=== PATIENT | female | born 1970 | race Caucasian/White ===

== ENCOUNTER 2019-06-03 21:48 | Emergency (ER) | payer BC ==
--- NOTE | 2019-06-03 22:59 | EDM.PDOC ---
ED HPI GENERAL MEDICAL PROBLEM - General Chief Complaint: Chest Pain Stated Complaint: LEFT ARM PAIN SHOULDER/NECK TIGHTNESS Time Seen by Provider: 06/03/19 22:08 Source of Information: Reports: Patient History Limitations: Reports: No Limitations - History of Present Illness INITIAL COMMENTS - FREE TEXT/NARRATIVE: Is a 48-year-old female. She has been having pain in her left neck and shoulder and down her arm and tingling in her ring and little finger on and off for several weeks. She was seen in the walk-in clinic several times and yesterday she was diagnosed with pneumonia and placed on a Z-Feliciano and some prednisone. She says she has a minimal cough it is nonproductive and she has not been having a fever. They also checked a flu and she was negative for influenza a and B. She describes the pain as a sharp pain that seems to be random but it never really goes away. She did go to a chiropractor and when you after he worked on her she felt a lot better but it did not last. Most of this pain and sharp pain seemed to resolve with a chiropractor but again it did not last. Due to this continued pain in her neck and left shoulder and left arm she comes to the ER for evaluation. She denies any nausea vomiting, fever or chills, cough or congestion. Right Chest Pain Score (Numeric/FACES): 6 - Related Data Allergies Allergy/AdvReac Type Severity Reaction Status Date / Time No Known Allergies Allergy Verified 06/03/19 22:08 Home Meds: Home Meds Azithromycin [Zithromax] 06/03/19 [History] Cetirizine [ZyrTEC] 06/03/19 [History] Dicyclomine [Bentyl] 06/03/19 [History] Ezetimibe [Zetia] 06/03/19 [History] Iron 06/03/19 [History] Levothyroxine [Synthroid] 100 mcg PO ACBREAKFAST 06/03/19 [History] Montelukast [Singulair] 10 mg PO DAILY 06/03/19 [History] atorvaSTATin [Lipitor] 06/03/19 [History] methylPREDNISolone [Medrol Dose Pack] 06/03/19 [History] Past Medical History Cardiovascular History: Reports: High Cholesterol Gastrointestinal History: Reports: Gastritis, Irritable Bowel Syndrome Endocrine/Metabolic History: Reports: Hyperthyroidism - Past Surgical History GI Surgical History: Reports: Cholecystectomy, Vonda Fundoplication Social & Family History - Tobacco Use Smoking Status *Q: Never Smoker ED ROS GENERAL - Review of Systems Review Of Systems: See Below Constitutional: Denies: Fever, Chills HEENT: Denies: Ear Pain, Sinus Problem, Throat Pain, Throat Swelling Respiratory: Reports: Cough. Denies: Shortness of Breath, Wheezing Cardiovascular: Reports: Chest Pain. Denies: Dyspnea on Exertion, Edema Endocrine: Reports: No Symptoms GI/Abdominal: Denies: Abdominal Pain, Diarrhea, Nausea, Vomiting : Reports: No Symptoms Musculoskeletal: Reports: Neck Pain, Shoulder Pain, Arm Pain Skin: Reports: No Symptoms Neurological: Reports: No Symptoms Psychiatric: Reports: No Symptoms Hematologic/Lymphatic: Reports: No Symptoms ED EXAM, GENERAL - Physical Exam Exam: See Below Exam Limited By: No Limitations General Appearance: Alert, WD/WN, No Apparent Distress Eye Exam: Bilateral Eye: Normal Inspection Ears: Normal External Exam, Normal Canal, Normal TMs Nose: Normal Inspection Throat/Mouth: Normal Inspection, Normal Lips, Normal Voice, No Airway Compromise Head: Normocephalic Neck: Supple Respiratory/Chest: No Respiratory Distress, Lungs Clear, Normal Breath Sounds. No: Crackles, Rales, Rhonchi, Wheezing Cardiovascular: Regular Rate, Rhythm, No Murmur, Tachycardia GI/Abdominal: Soft, Non-Tender Back Exam: Normal Inspection, Full Range of Motion Extremities: Other (Outpatient of the trapezius muscle on the left is very tender and tight, palpation along the roots of the cervical spine is also very tender, I am not able to reproduce any sharp pain or tingling in her fingers but it seems to be related to the muscle tightness and the neck pain, she also has some soreness in the pectoralis muscles in the left anterior chest as well and around the clavicle, she has full range of motion of that shoulder elbow wrist and fingers. Neurovascular is grossly intact in all 5 digits.) Neurological: Alert, Oriented Psychiatric: Normal Affect, Normal Mood Skin Exam: Warm, Dry EKG INTERPRETATION EKG Date: 06/03/19 Time: 22:25 EKG Interpretation Comments: EKG shows a sinus rhythm with no acute ST or T wave changes and no ischemia is noted. Course - Vital Signs Last Recorded V/S: Last Vital Signs Temp 98.4 F 06/03/19 22:03 Pulse 101 H 06/03/19 22:03 Resp 16 06/03/19 22:03 BP 148/89 H 06/03/19 22:03 Pulse Ox 96 06/03/19 22:03 - Orders/Labs/Meds Orders: Active Orders 24 hr Category Date Time Status EKG Documentation Completion [RC] ASDIRECTED Care 06/03/19 22:19 Active CXR [Chest 1V Frontal] [CR] Stat Exams 06/03/19 22:33 Taken EKG 12 Lead [EK] Stat Ther 06/03/19 22:18 Ordered Labs: Laboratory Tests 06/03/19 06/03/19 06/03/19 Range/Units 22:45 22:45 22:45 WBC 14.06 H (3.98-10.04) K/mm3 RBC 4.99 (3.98-5.22) M/mm3 Hgb 14.4 (11.2-15.7) gm/dl Hct 43.8 (34.1-44.9) % MCV 87.8 (79.4-94.8) fl MCH 28.9 (25.6-32.2) pg MCHC 32.9 (32.2-35.5) g/dl RDW Std Deviation 40.5 (36.4-46.3) fL Plt Count 371 H (182-369) K/mm3 MPV 9.2 L (9.4-12.3) fl Neut % (Auto) 83.8 H (34.0-71.1) % Lymph % (Auto) 9.4 L (19.3-51.7) % Hart % (Auto) 6.3 (4.7-12.5) % Eos % (Auto) 0.1 L (0.7-5.8) Baso % (Auto) 0.1 (0.1-1.2) % Neut # (Auto) 11.80 H (1.56-6.13) K/mm3 Lymph # (Auto) 1.32 (1.18-3.74) K/mm3 Hart # (Auto) 0.88 H (0.24-0.36) K/mm3 Eos # (Auto) 0.01 L (0.04-0.36) K/mm3 Baso # (Auto) 0.01 (0.01-0.08) K/mm3 Manual Slide Review Abnormal smear Sodium 139 (136-145) mEq/L Potassium 4.6 (3.5-5.1) mEq/L Chloride 103 (98-107) mEq/L Carbon Dioxide 28 (21-32) mEq/L Anion Gap 12.6 (5-15) BUN 12 (7-18) mg/dL Creatinine 0.8 (0.55-1.02) mg/dL Est Cr Clr Drug Dosing 70.37 mL/min Estimated GFR (MDRD) > 60 (>60) mL/min BUN/Creatinine Ratio 15.0 (14-18) Glucose 138 H (74-106) mg/dL Lactic Acid 1.6 (0.4-2.0) mmol/L Calcium 9.5 (8.5-10.1) mg/dL Total Bilirubin 0.3 (0.2-1.0) mg/dL AST 24 (15-37) U/L ALT 48 (14-59) U/L Alkaline Phosphatase 126 H (46-116) U/L Troponin I < 0.017 (0.00-0.056) ng/mL Total Protein 8.8 H (6.4-8.2) g/dl Albumin 4.0 (3.4-5.0) g/dl Globulin 4.8 gm/dL Albumin/Globulin Ratio 0.8 L (1-2) - Radiology Interpretation Free Text/Narrative:: Chest x-ray does not show the best expansion of the lung steel, there is a little fuzziness in the left lower lung area but no discrete infiltrate noted. - Re-Assessments/Exams Free Text/Narrative Re-Assessment/Exam: 06/04/19 00:14 I spoke to the patient regarding the test results and troponin and EKG all of them essentially normal. I believe that her pain is related to the muscle tightness and possible some cervical radiculopathy. I encouraged her to see her doctor and have this evaluated. In the meantime she is to use the muscle relaxers and some Aleve to help with the pain. Departure - Departure Time of Disposition: 00:14 Disposition: Home, Self-Care 01 Condition: Good Clinical Impression: Cervical radiculopathy at C7, Cervical radiculopathy at C8, Muscle spasm Acute cervical sprain Qualifiers: Encounter type: initial encounter Qualified Code(s): S13.9XXA - Sprain of joints and ligaments of unspecified parts of neck, initial encounter Instructions: Cervical Radiculopathy Referrals: Lily Sosa MD [Primary Care Provider] - Forms: ED Department Discharge Additional Instructions: Continue with your muscle relaxers for the muscle tightness, take the Naprosyn or naproxen as needed for the pain, use ice or heat whatever feels better for the pain, follow-up with your family doctor for evaluation of this pain and possible MRI of the cervical spine, return to the ER as needed Sepsis Event Note - Evaluation Sepsis Screening Result: No Definite Risk - Focused Exam Vital Signs: Vital Signs Temp Pulse Resp BP Pulse Ox 06/03/19 22:03 98.4 F 101 H 16 148/89 H 96 Date Exam was Performed: 06/04/19 Time Exam was Performed: 00:13 - My Orders Last 24 Hours: My Active Orders 06/03/19 22:18 EKG 12 Lead [EK] Stat 06/03/19 22:19 EKG Documentation Completion [RC] ASDIRECTED 06/03/19 22:33 CXR [Chest 1V Frontal] [CR] Stat - Assessment/Plan Last 24 Hours: My Active Orders 06/03/19 22:18 EKG 12 Lead [EK] Stat 06/03/19 22:19 EKG Documentation Completion [RC] ASDIRECTED 06/03/19 22:33 CXR [Chest 1V Frontal] [CR] Stat
--- NOTE | 2019-06-04 08:00 | CR ---
Chest: Portable view of the chest was obtained. Comparison: No previous chest x-ray. Heart size is mildly generous but accentuated from portable technique. Upper mediastinum is normal. Lungs are clear with no acute parenchymal change. Bony structures are grossly intact. Minimal thoracic and lumbar scoliosis is noted. Impression: 1. Nothing acute is appreciated on portable chest x-ray. Diagnostic code #2 This report was dictated in [place] Standard Time
== END 2019-06-04 00:24 | disposition home or self-care (01) ==
LOC: JD.ED 21:48
DX: S13.4XXA Sprain of ligaments of cervical spine, initial encounter (principal); M54.12 Radiculopathy, cervical region; M62.838 Other muscle spasm; E78.00 Pure hypercholesterolemia, unspecified; Z79.899 Other long term (current) drug therapy; X58.XXXA Exposure to other specified factors, initial encounter
CPT/HCPCS: 36415; 71045; 71045-26; 80053; 83605; 84484; 85025; 93005; 93010; 99283; 99284-25

== ENCOUNTER 2019-11-05 00:51 | Emergency (ER) | payer BC, MEDICAID ==
--- NOTE | 2019-11-05 01:08 | EDM.PDOC ---
ED HPI GENERAL MEDICAL PROBLEM - General Chief Complaint: Abdominal Pain Stated Complaint: ABDOMINAL PAIN Time Seen by Provider: 11/05/19 01:06 - History of Present Illness INITIAL COMMENTS - FREE TEXT/NARRATIVE: 49-year-old female presents the emergency room with upper abdominal pain. This is an ongoing problem it is been worse over the last couple of weeks but really got worse the last several days. Patient has a history of a hiatal hernia she has had a Vonda repair that has a defect in it. Patient is on omeprazole. She denies any fevers or chills no chest pain chest pressure or breathing difficulties or shortness of breath. Patient denies any nausea vomiting constipation or diarrhea. No lower abdominal discomfort. Left Upper Abdomen Pain Score (Numeric/FACES): 9 - Related Data Allergies Allergy/AdvReac Type Severity Reaction Status Date / Time levofloxacin [From Levaquin] Allergy Rash Verified 11/05/19 01:00 sulfamethoxazole Allergy Mouth Sores Verified 11/05/19 01:00 [From Bactrim] trimethoprim [From Bactrim] Allergy Mouth Sores Verified 11/05/19 01:00 Home Meds: Home Meds Cetirizine [ZyrTEC] 10 mg PO DAILY 06/03/19 [History] Dicyclomine [Bentyl] 10 mg PO ASDIRECTED PRN 06/03/19 [History] Ezetimibe [Zetia] 10 mg PO DAILY 06/03/19 [History] Iron 06/03/19 [History] Levothyroxine [Synthroid] 75 mcg PO ACBREAKFAST 06/03/19 [History] Montelukast [Singulair] 10 mg PO DAILY 06/03/19 [History] atorvaSTATin [Lipitor] 10 mg PO DAILY 06/03/19 [History] Baclofen 10 mg PO ASDIRECTED PRN 11/05/19 [History] Pramipexole Di-HCl [Mirapex] 0.25 mg PO BEDTIME 11/05/19 [History] Past Medical History HEENT History: Reports: Impaired Vision Other HEENT History: Wears Cardiovascular History: Reports: High Cholesterol Respiratory History: Reports: Asthma Gastrointestinal History: Reports: Gastritis, Irritable Bowel Syndrome 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 Denies: Anorexia, Black Stool, Bloody Stool, Constipation, Diarrhea, Nausea, Vomiting ED EXAM, GI/ABD - Physical Exam Exam: See Below Exam Limited By: No Limitations General Appearance: Alert, No Apparent Distress Head: Atraumatic, Normocephalic Neck: Normal Inspection, Supple, Non-Tender, Full Range of Motion. No: Lymphadenopathy (L), Lymphadenopathy (R) Respiratory/Chest: No Respiratory Distress, Lungs Clear, Normal Breath Sounds Cardiovascular: Regular Rate, Rhythm, No Edema, No Murmur GI/Abdominal Exam: Normal Bowel Sounds, Soft, Other (She has some epigastric discomfort that radiates to the right, however, no palpable discomfort on the right. She has some mild left upper abdominal discomfort with palpation remaining abdomen is nonpainful with palpation. She is got significant abdominal obesity.) Back Exam: Normal Inspection. No: CVA Tenderness (L), CVA Tenderness (R) Extremities: Normal Inspection, No Pedal Edema Neurological: Alert, Oriented, Normal Cognition Course - Vital Signs Last Recorded V/S: Last Vital Signs Temp 36.3 C 11/05/19 00:57 Pulse 79 11/05/19 00:57 Resp 16 11/05/19 00:57 BP 149/83 H 11/05/19 00:57 Pulse Ox 98 11/05/19 00:57 - Orders/Labs/Meds Orders: Active Orders 24 hr Category Date Time Status EKG Documentation Completion [RC] STAT Care 11/05/19 01:13 Active Labs: Laboratory Tests 11/05/19 11/05/19 Range/Units 01:00 01:00 WBC 8.61 (3.98-10.04) K/mm3 RBC 4.98 (3.98-5.22) M/mm3 Hgb 14.1 (11.2-15.7) gm/dl Hct 43.5 (34.1-44.9) % MCV 87.3 (79.4-94.8) fl MCH 28.3 (25.6-32.2) pg MCHC 32.4 (32.2-35.5) g/dl RDW Std Deviation 41.9 (36.4-46.3) fL Plt Count 306 (182-369) K/mm3 MPV 9.3 L (9.4-12.3) fl Neut % (Auto) 53.8 (34.0-71.1) % Lymph % (Auto) 30.3 (19.3-51.7) % Schuyler % (Auto) 8.9 (4.7-12.5) % Eos % (Auto) 6.7 H (0.7-5.8) Baso % (Auto) 0.2 (0.1-1.2) % Neut # (Auto) 4.62 (1.56-6.13) K/mm3 Lymph # (Auto) 2.61 (1.18-3.74) K/mm3 Schuyler # (Auto) 0.77 H (0.24-0.36) K/mm3 Eos # (Auto) 0.58 H (0.04-0.36) K/mm3 Baso # (Auto) 0.02 (0.01-0.08) K/mm3 Sodium 143 (136-145) mEq/L Potassium 4.0 (3.5-5.1) mEq/L Chloride 105 (98-107) mEq/L Carbon Dioxide 30 (21-32) mEq/L Anion Gap 12.0 (5-15) BUN 14 (7-18) mg/dL Creatinine 0.9 (0.55-1.02) mg/dL Est Cr Clr Drug Dosing 61.86 mL/min Estimated GFR (MDRD) > 60 (>60) mL/min BUN/Creatinine Ratio 15.6 (14-18) Glucose 98 (74-106) mg/dL Calcium 9.3 (8.5-10.1) mg/dL Total Bilirubin 0.3 (0.2-1.0) mg/dL AST 18 (15-37) U/L ALT 36 (14-59) U/L Alkaline Phosphatase 106 (46-116) U/L Troponin I < 0.017 (0.00-0.056) ng/mL Total Protein 8.0 (6.4-8.2) g/dl Albumin 3.9 (3.4-5.0) g/dl Globulin 4.1 gm/dL Albumin/Globulin Ratio 1.0 (1-2) Lipase 170 (73-393) U/L Meds: Medications Discontinued Medications Generic Name Dose Route Start Last Admin Trade Name John Paul PRN Reason Stop Dose Admin Al Hydroxide/Mg Hydroxide 30 0 ml 11/05/19 01:14 11/05/19 01:23 ml/ Lidocaine HCl 15 ml PO 11/05/19 01:15 45 ml ONETIME ONE Administration - Re-Assessments/Exams Free Text/Narrative Re-Assessment/Exam: 11/05/19 02:50 Return evaluation is unrevealing EKG shows no acute changes she has some Q waves noted in the inferior leads however they are not wide enough to be considered pathologic. No acute ST-T wave changes and no significant changes from 06/03/2019. Patient did have a GI cocktail and this helped out quite a bit. At this point we will give the patient Carafate for a week. And see how she does she has follow-up coming up with her regular provider if the patient has good relief from the Carafate and her symptoms return after stopping the Carafate I have advised her to start Pepcid, or famotidine 20 mg twice a day. The patient has had a Vonda procedure and sometimes PPIs do not work in this population. Departure - Departure Time of Disposition: 02:53 Disposition: Home, Self-Care 01 Clinical Impression: GERD (gastroesophageal reflux disease) - Discharge Information Referrals: Lily Sosa MD [Primary Care Provider] - Forms: ED Department Discharge Additional Instructions: Return to the emergency room with any questions problems or worsening symptoms Follow-up with your physician as scheduled. If you keep having problems like this discussed with your physician if you need a heart stress test. You have been started on Carafate take this for a week. Take this just before breakfast lunch and supper and again at bedtime take your other medications at least 1 hour prior to taking this or 2 hours after. After stopping the Carafate if this discomfort returns consider starting famotidine, or Pepcid, 20 mg twice a day. Take your omeprazole 1 hour before breakfast it works better that way. Sepsis Event Note (ED) - Evaluation Sepsis Screening Result: No Definite Risk - Focused Exam Vital Signs: Vital Signs Temp Pulse Resp BP Pulse Ox 11/05/19 00:57 36.3 C 79 16 149/83 H 98 - My Orders Last 24 Hours: My Active Orders 11/05/19 01:13 EKG Documentation Completion [RC] STAT - Assessment/Plan Last 24 Hours: My Active Orders 11/05/19 01:13 EKG Documentation Completion [RC] STAT
[2019-11-05] MEDS ORDERED: Alum Hydrox/Mag Hydrox/Simeth 30 ML, Lidocaine 2% 15 ML PO ONE ×2 (01:14)
[2019-11-05] MEDS ORDERED: Sucralfate 1 GM Tab PO ONE (02:54)
== END 2019-11-05 03:21 | disposition home or self-care (01) ==
LOC: JD.ED 00:51
DX: K21.9 Gastro-esophageal reflux disease without esophagitis (principal); E05.90 Thyrotoxicosis, unspecified without thyrotoxic crisis or storm; E78.00 Pure hypercholesterolemia, unspecified; J45.909 Unspecified asthma, uncomplicated; Z88.1 Allergy status to other antibiotic agents; Z88.2 Allergy status to sulfonamides; Z79.899 Other long term (current) drug therapy
CPT/HCPCS: 36415; 80053; 83690; 84484; 85025; 93005; 99284; A9270; 93010; 99283

== ENCOUNTER 2019-11-07 01:44 | Emergency (ER) | payer BC, MEDICAID, OTHER, SELFPAY ==
[2019-11-07] MEDS ORDERED: Alum Hydrox/Mag Hydrox/Simeth 30 ML, Lidocaine 2% 15 ML PO STA ×2 (02:11)
--- NOTE | 2019-11-07 02:14 | EDM.PDOC ---
ED HPI GENERAL MEDICAL PROBLEM - General Chief Complaint: Abdominal Pain Stated Complaint: abdominal pain Time Seen by Provider: 11/07/19 01:58 Source of Information: Reports: Patient, Family (Daughter) History Limitations: Reports: No Limitations - History of Present Illness INITIAL COMMENTS - FREE TEXT/NARRATIVE: Ms. Álvarez is a pleasant 49-year-old woman with a past medical history significant for gastritis, hiatal hernia, and GERD, status post a Vonda fundoplication in October 2017, who, medical records indicate, was seen in this ED just 2 days ago, 11/05/2019, with recurrent upper abdominal pain. She denied having any nausea, vomiting, constipation, or diarrhea. He was found to be hemodynamically stable, afebrile, saturating 98% on room air. Work-up included a CBC, CMP, troponin, lipase level, and an ECG, all of which were unremarkable. She was given a GI cocktail, which helped. She was instructed to take Carafate twice a day, and an H2 villa, such as famotidine or ranitidine, twice a day, then follow-up with her PCP. The patient now returns to the ED stating that she developed generalized abdominal pain, not just upper abdominal pain, around 22:45, while watching television. She describes the pain as sharp and stabbing in character, and states that it is constant. It radiates through to her mid-back. She has not identified any modifiers. She has associated nausea, but no recent vomiting, constipation, or diarrhea. Patient acknowledges that her current pain is essentially the same as her recurrent abdominal pain, but she states she has been experiencing ever since she underwent a cholecystectomy in 2010. The patient states that her last EGD was about 2 years ago, prior to her Vonda fundoplication. Of interest, the patient reports that her GERD was poorly responsive to PPIs prior to her Vonda fundoplication. Other than ED visits, the patient acknowledges that she has not had a significant work-up to find out the cause of her recurrent abdominal pain. She is not currently under the care of a Photographer Finish or Surgeon. She did, however, undergo a transvaginal ultrasound yesterday, 11/06/2019, to see if her previously known ovarian cysts might be playing a role. She does not have the results of that ultrasound as yet. She states that she has been taking Carafate 4 times a day, although acknowledges that she is missed a dose yesterday. She states that she took Tylenol around 23:00, without improvement in her symptoms. Here in the ED, the patient is found to be hemodynamically stable, afebrile, saturating 95% on room air. Other than her recurrent abdominal pain, the patient denies recent fever, chills, sore throat, ear pain, nasal or sinus congestion, cough, dyspnea, chest pain, palpitations, vomiting, constipation, diarrhea, urinary symptoms, recent weight gain or weight loss, recent bloody bowel movements or black bowel movements, recent joint aches, headaches, or rashes. The patient's PCP is Dr. Lily Sosa. Abdomen Pain Score (Numeric/FACES): 9 - Related Data Allergies Allergy/AdvReac Type Severity Reaction Status Date / Time levofloxacin [From Levaquin] Allergy Rash Verified 11/05/19 01:00 sulfamethoxazole Allergy Mouth Sores Verified 11/05/19 01:00 [From Bactrim] trimethoprim [From Bactrim] Allergy Mouth Sores Verified 11/05/19 01:00 Home Meds: Home Meds Cetirizine [ZyrTEC] 10 mg PO DAILY 06/03/19 [History] Dicyclomine [Bentyl] 10 mg PO ASDIRECTED PRN 06/03/19 [History] Ezetimibe [Zetia] 10 mg PO DAILY 06/03/19 [History] Iron 06/03/19 [History] Levothyroxine [Synthroid] 75 mcg PO ACBREAKFAST 06/03/19 [History] Montelukast [Singulair] 10 mg PO DAILY 06/03/19 [History] atorvaSTATin [Lipitor] 10 mg PO DAILY 06/03/19 [History] Baclofen 10 mg PO ASDIRECTED PRN 11/05/19 [History] Pramipexole Di-HCl [Mirapex] 0.25 mg PO BEDTIME 11/05/19 [History] Sucralfate [Carafate] 1 gm PO ASDIRECTED #28 ml 11/05/19 [Rx] Past Medical History HEENT History: Reports: Impaired Vision (wears glasses) Cardiovascular History: Reports: High Cholesterol Respiratory History: Reports: Asthma (PFT-proven) Gastrointestinal History: Reports: Gastritis, GERD, Hiatal Hernia 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: Reports: Other (See Below) (Ovarian cysts) Endocrine/Metabolic History: Reports: Hypothyroidism - Past Surgical History HEENT Surgical History: Reports: Naso-Sinus Surgery (Septoplasty) GI Surgical History: Reports: Cholecystectomy (2010), Vonda Fundoplication (Oct 2017, in [place]) Female Surgical History: Reports: Tubal Ligation Social & Family History - Tobacco Use Smoking Status *Q: Never Smoker Second Hand Smoke Exposure: No - Caffeine Use Caffeine Use: Reports: None - Alcohol Use Alcohol Use History: No - Recreational Drug Use Recreational Drug Use: No - Living Situation & Occupation Living situation: Reports: , with Family (Daughter) Occupation: Employed ([employer]) ED ROS GENERAL - Review of Systems Review Of Systems: Comprehensive ROS is negative, except as noted in HPI. ED EXAM, GI/ABD - Physical Exam Exam: See Below Exam Limited By: No Limitations General Appearance: Alert, WD/WN, Mild Distress (appears uncomfortable) Eyes: Bilateral: Normal Appearance, EOMI Ears: Normal External Exam, Hearing Grossly Normal Nose: Normal Inspection Throat/Mouth: Normal Inspection, Normal Lips, Normal Voice, No Airway Compromise Head: Atraumatic, Normocephalic Neck: Normal Inspection, Full Range of Motion Respiratory/Chest: No Respiratory Distress, Lungs Clear, Normal Breath Sounds, No Accessory Muscle Use Cardiovascular: Normal Peripheral Pulses, Regular Rate, Rhythm, No Edema, No Gallop, No JVD, No Murmur, No Rub GI/Abdominal Exam: Normal Bowel Sounds, Soft, Non-Tender (including the epigastrium), No Organomegaly, No Distention, No Abnormal Bruit, No Mass (Female) Exam: Deferred Rectal (Female) Exam: Deferred Back Exam: Normal Inspection, Full Range of Motion. No: CVA Tenderness (L), CVA Tenderness (R) Extremities: Normal Inspection, Normal Range of Motion, Normal Capillary Refill Neurological: Alert, Oriented, Normal Cognition, No Motor/Sensory Deficits Psychiatric: Normal Affect Skin Exam: Warm, Dry, Intact, Normal Color, No Rash Course - Vital Signs Last Recorded V/S: Last Vital Signs Temp 36.1 C 11/07/19 01:57 Pulse 95 11/07/19 01:57 Resp 16 11/07/19 01:57 BP 125/64 11/07/19 01:57 Pulse Ox 95 07/07/20 01:57 - Orders/Labs/Meds Orders: Active Orders 24 hr Category Date Time Status UA W/MICROSCOPIC [URIN] Stat Lab 11/07/19 02:11 Ordered Labs: Laboratory Tests 11/07/19 11/07/19 Range/Units 02:35 02:35 WBC 14.17 H (3.98-10.04) K/mm3 RBC 5.30 H (3.98-5.22) M/mm3 Hgb 15.0 (11.2-15.7) gm/dl Hct 46.1 H (34.1-44.9) % MCV 87.0 (79.4-94.8) fl MCH 28.3 (25.6-32.2) pg MCHC 32.5 (32.2-35.5) g/dl RDW Std Deviation 42.3 (36.4-46.3) fL Plt Count 312 (182-369) K/mm3 MPV 9.4 (9.4-12.3) fl Neutrophils % (Manual) 72 H (40-60) % Band Neutrophils % 1 (0-10) % Lymphocytes % (Manual) 13 L (20-40) % Atypical Lymphs % 0 % Monocytes % (Manual) 9 (2-10) % Eosinophils % (Manual) 5 (0.7-5.8) % Basophils % (Manual) 0 L (0.1-1.2) Platelet Estimate Adequate RBC Morph Comment Normal Sodium 139 (136-145) mEq/L Potassium 3.8 (3.5-5.1) mEq/L Chloride 100 (98-107) mEq/L Carbon Dioxide 28 (21-32) mEq/L Anion Gap 14.8 (5-15) BUN 22 H (7-18) mg/dL Creatinine 0.9 (0.55-1.02) mg/dL Est Cr Clr Drug Dosing 61.86 mL/min Estimated GFR (MDRD) > 60 (>60) mL/min BUN/Creatinine Ratio 24.4 H (14-18) Glucose 126 H (74-106) mg/dL Calcium 9.5 (8.5-10.1) mg/dL Total Bilirubin 0.5 (0.2-1.0) mg/dL AST 21 (15-37) U/L ALT 38 (14-59) U/L Alkaline Phosphatase 116 (46-116) U/L Total Protein 8.9 H (6.4-8.2) g/dl Albumin 4.2 (3.4-5.0) g/dl Globulin 4.7 gm/dL Albumin/Globulin Ratio 0.9 L (1-2) Lipase 90 (73-393) U/L Meds: Medications Discontinued Medications Generic Name Dose Route Start Last Admin Trade Name John Paul PRN Reason Stop Dose Admin Al Hydroxide/Mg Hydroxide 30 0 ml 11/07/19 02:11 11/07/19 02:20 ml/ Lidocaine HCl 15 ml PO 11/07/19 02:12 45 ml ONETIME STA Administration - Re-Assessments/Exams Free Text/Narrative Re-Assessment/Exam: 11/07/19 02:12 As above, the patient developed generalized abdominal pain, sharp and stabbing in character, around 22:45 this evening, while watching television. Her pain radiates through to her mid-back. She has had nausea, but no vomiting. The pain acknowledges that her pain is essentially the same as that she has been suffering from recurrently since her cholecystectomy in 2010. She took some Tylenol around 23:00, but nothing else. I have ordered a work-up that includes blood work and a urinalysis, and in the meantime, the patient will be given a GI cocktail, to see if that helps. I do not see an indication for a CT of the abdomen and pelvis at this time. 11/07/19 02:36 Notified by KEELY Smith that the GI cocktail did help the patient's symptoms. She also mention, however, that the patient was only able to provide a couple of drops of urine. 11/07/19 03:21 The patient's CBC is remarkable for WBC count mildly elevated at 14.17, but with only 1% bandemia. Her Hct is mildly elevated at 46.1, but with a Hgb normal at 15.0. The remainder of her CBC is unremarkable. Her CMP is remarkable for a BUN slightly elevated at 22, but with a Cr normal at 0.9. Her blood glucose is mildly elevated at 126, with the remainder of her CMP being unremarkable. Her lipase level is within normal limits at 90. 11/07/19 03:24 Test results discussed with the patient and her daughter. As above, the patient had some relief following the GI cocktail, indicating that her pain is most likely due to her acid reflux. I suggested to the patient that she consider switching her current omeprazole to a different PPI, and in the meantime, she would need to take an H2 villa twice a day for 3 days or so, as new proton pump inhibitors usually take about 3 days before they start working. I also recommended that she arrange for an EGD to reevaluate her esophagus and stomach due to continued symptoms of GERD following her Vonda fundoplication in 2018. Causes of new or recurrent symptoms following a Vonda fundoplication are numerous, including a too tightly constructed wrap, a slipped wrap, a wrap that has been placed to low, development of a stricture, the presence of a motor disorder of the esophageal body, or some combination of the above, and an EGD is an essential part of that evaluation. I recommended that she follow-up with h er PCP to arrange for that EGD. Departure - Departure Time of Disposition: 03:30 Disposition: Home, Self-Care 01 Condition: Good Clinical Impression: GERD (gastroesophageal reflux disease) - Discharge Information *PRESCRIPTION DRUG MONITORING PROGRAM REVIEWED*: Not Applicable *COPY OF PRESCRIPTION DRUG MONITORING REPORT IN PATIENT PRINCE: Not Applicable Referrals: Lily Sosa MD [Primary Care Provider] - Forms: ED Department Discharge Additional Instructions: You were seen in the emergency room for recurrent generalized abdominal pain. Work-up in the ER included blood work, which returned unremarkable. You do not have pancreatitis. You had some temporary relief of your symptoms following a GI cocktail. Based on your history, physical exam, ER test, and GI cocktail results, your recurrent symptoms are most likely due to acid reflux, also known as GERD. As discussed, we recommend that you consider switching from your current omeprazole to a different proton pump inhibitor, and in the meantime, since new proton pump inhibitors take about 3 days before they become effective, we recommend that you take an [id number] H2 villa, such as famotidine (Pepcid), 1 tablet twice a day, for 3 days. As discussed, we also strongly recommend that you undergo an EGD (scope of your stomach) to evaluate the status of your Vonda fundoplication. There are numerous anatomic problems that can develop following a Vonda fundoplication that can result in new or continued acid reflux symptoms following a Vonda fundoplication, and an EGD is an essential part of that evaluation. We recommend that you follow-up with your PCP, Dr. Lily Sosa, to arrange for that EGD. If any other problems, please do not hesitate to return to the ER. Sepsis Event Note (ED) - Evaluation Sepsis Screening Result: No Definite Risk - Focused Exam Vital Signs: Vital Signs Temp Pulse Resp BP Pulse Ox 11/07/19 01:57 36.1 C 95 16 125/64 95 - My Orders Last 24 Hours: My Active Orders 11/07/19 02:11 UA W/MICROSCOPIC [URIN] Stat - Assessment/Plan Last 24 Hours: My Active Orders 11/07/19 02:11 UA W/MICROSCOPIC [URIN] Stat
== END 2019-11-07 03:42 | disposition home or self-care (01) ==
LOC: JD.ED 01:44
DX: K21.9 Gastro-esophageal reflux disease without esophagitis (principal); E78.00 Pure hypercholesterolemia, unspecified; J45.909 Unspecified asthma, uncomplicated; E03.9 Hypothyroidism, unspecified; Z88.1 Allergy status to other antibiotic agents; Z88.2 Allergy status to sulfonamides; Z79.899 Other long term (current) drug therapy
CPT/HCPCS: 36415; 80053; 83690; 85007; 85027; 99284; A9270

== ENCOUNTER 2019-11-07 18:17 | Emergency (ER) | payer BC, MEDICAID, OTHER ==
[2019-11-07] MEDS ORDERED: Alum Hydrox/Mag Hydrox/Simeth 30 ML, Lidocaine 2% 15 ML PO STA ×2 (19:23)
[2019-11-07] MEDS ORDERED: Sodium Chloride 0.9% 1,000 ML IV SCH (19:30)
--- NOTE | 2019-11-07 19:34 | EDM.PDOC ---
ED HPI GENERAL MEDICAL PROBLEM - General Chief Complaint: Abdominal Pain Stated Complaint: ABDOMINAL PAIN Time Seen by Provider: 11/07/19 19:03 Source of Information: Reports: Patient, Family (Daughter) History Limitations: Reports: No Limitations - History of Present Illness INITIAL COMMENTS - FREE TEXT/NARRATIVE: Ms. Álvarez is a pleasant 49-year-old woman with a past medical history significant for gastritis, a hiatal hernia, and GERD, status post a Vonda fundoplication in October 2017, who was seen in this ED on 11/05/2019, with recurrent upper abdominal pain. Work-up included a CBC, CMP, troponin, lipase level, and an ECG, all of which were unremarkable. She was given a GI cocktail, which helped her symptoms. She was instructed to take Carafate twice a day, and an H2 villa [place] a day, then follow-up with her PCP. The patient then returned to the ED early this morning, and was seen by me. She was complaining of generalized abdominal pain that had developed late last night. She describes the pain is sharp and stabbing in character, and stated that it was constant. She stated that it radiated through to her mid back. She had not identified any modifiers. She had associated nausea, but no vomiting, constipation, or diarrhea. She acknowledged that her pain was essentially the same as her recurrent abdominal pain that began after she underwent a cholecystectomy in 2010. She was found to be hemodynamically stable. Work-up included a CBC, CMP, and lipase level, all of which were unremarkable. She was given a GI cocktail, which again helped with her symptoms. She was discharged home with a diagnosis of GERD, and the recommendation that she switch her current omeprazole to a different proton pump inhibitor, and at the same time take an H2 villa twice a day for 3 days. She was also strongly encouraged to follow-up with her PCP to arrange to undergo an EGD, as there are numerous anatomic problems that can complicate a Vonda fundoplication, and an EGD is an essential part of the evaluation. The patient states that her abdominal pain recurred again after she was discharged, therefore she went to the walk-in clinic, not her PCPs office. She states that the walk-in clinic did not perform any tests, rather, they instructed her to come here to undergo an emergency CT of the abdomen and pelvis. Asked why they did not simply order a CT scan from their facility, the patient replied "because it was after 5:00." Here in the ED, the patient is found to be hemodynamically stable, afebrile, saturating 95% on room air. Other than the patient's recurrent abdominal pain, the patient denies recent fever, chills, sore throat, ear pain, nasal or sinus congestion, cough, dyspnea, chest pain, palpitations, vomiting, constipation, diarrhea, urinary symptoms, recent weight gain or weight loss, recent bloody bowel movements or black bowel movements, recent joint aches, headaches, or rashes. The patient's PCP is Dr. Lily Sosa. Right Upper Abdominal Pain Score (Numeric/FACES): 9 - Related Data Allergies Allergy/AdvReac Type Severity Reaction Status Date / Time levofloxacin [From Levaquin] Allergy Rash Verified 11/05/19 01:00 sulfamethoxazole Allergy Mouth Sores Verified 11/05/19 01:00 [From Bactrim] trimethoprim [From Bactrim] Allergy Mouth Sores Verified 11/05/19 01:00 Home Meds: Home Meds Cetirizine [ZyrTEC] 10 mg PO DAILY 06/03/19 [History] Dicyclomine [Bentyl] 10 mg PO ASDIRECTED PRN 06/03/19 [History] Ezetimibe [Zetia] 10 mg PO DAILY 06/03/19 [History] Iron 06/03/19 [History] Levothyroxine [Synthroid] 75 mcg PO ACBREAKFAST 06/03/19 [History] Montelukast [Singulair] 10 mg PO DAILY 06/03/19 [History] atorvaSTATin [Lipitor] 10 mg PO DAILY 06/03/19 [History] Baclofen 10 mg PO ASDIRECTED PRN 11/05/19 [History] Pramipexole Di-HCl [Mirapex] 0.25 mg PO BEDTIME 11/05/19 [History] Sucralfate [Carafate] 1 gm PO ASDIRECTED #28 ml 11/05/19 [Rx] Past Medical History HEENT History: Reports: Allergic Rhinitis, Impaired Vision (wears glasses) Cardiovascular History: Reports: High Cholesterol Respiratory History: Reports: Asthma (PFT-proven) Gastrointestinal History: Reports: Gastritis, GERD, Hiatal Hernia [employer] History: Reports: Other (See Below) (Ovarian cysts) Endocrine/Metabolic History: Reports: Hypothyroidism - Past Surgical History HEENT Surgical History: Reports: Naso-Sinus Surgery (septoplasty) GI Surgical History: Reports: Cholecystectomy (2010), Vonda Fundoplication (Oct 2017, in [place]) Female Surgical History: Reports: Tubal Ligation Social & Family History - Family History Family Medical History: Noncontributory - Tobacco Use Smoking Status *Q: Never Smoker Second Hand Smoke Exposure: No - Caffeine Use Caffeine Use: Reports: None - Alcohol Use Alcohol Use History: No - Recreational Drug Use Recreational Drug Use: No - Living Situation & Occupation Living situation: Reports: , with Family (Daughter) Occupation: Employed ([employer]) ED ROS GENERAL - Review of Systems Review Of Systems: Comprehensive ROS is negative, except as noted in HPI. ED EXAM, GI/ABD - Physical Exam Exam: See Below Exam Limited By: No Limitations General Appearance: Alert, WD/WN, No Apparent Distress Eyes: Bilateral: Normal Appearance, EOMI Ears: Normal External Exam, Hearing Grossly Normal Nose: Normal Inspection Throat/Mouth: Normal Inspection, Normal Lips, Normal Voice, No Airway Compromise Head: Atraumatic, Normocephalic Neck: Normal Inspection, Full Range of Motion Respiratory/Chest: No Respiratory Distress, Lungs Clear, Normal Breath Sounds, No Accessory Muscle Use Cardiovascular: Normal Peripheral Pulses, Regular Rate, Rhythm, No Edema, No Gallop, No JVD, No Murmur, No Rub GI/Abdominal Exam: Normal Bowel Sounds, Soft, Non-Tender (including the epigastrium), No Organomegaly, No Distention, No Abnormal Bruit, No Mass (Female) Exam: Deferred Rectal (Female) Exam: Deferred Back Exam: Normal Inspection, Full Range of Motion, NT Extremities: Normal Inspection, Normal Range of Motion, No Pedal Edema, Normal Capillary Refill Neurological: Alert, Oriented, Normal Cognition, No Motor/Sensory Deficits Psychiatric: Normal Affect Skin Exam: Warm, Dry, Intact, Normal Color, No Rash Course - Vital Signs Last Recorded V/S: Last Vital Signs Temp 36.1 C 11/07/19 18:52 Pulse 91 11/07/19 18:52 Resp 16 11/07/19 18:52 BP 124/64 11/07/19 18:52 Pulse Ox 95 11/07/19 18:52 - Orders/Labs/Meds Orders: Active Orders 24 hr Category Date Time Status Abdomen Pelvis w Cont [CT] Stat Exams 11/07/19 19:20 Taken Sodium Chloride 0.9% [Normal Saline] 1,000 ml Med 11/07/19 19:30 Active IV ASDIRECTED Medication Orders Sodium Chloride (Normal Saline) 1,000 mls @ 150 mls/hr IV ASDIRECTED GURMEET Last Admin: 11/07/19 20:06 Dose: 150 mls/hr Documented by: DEE Labs: Laboratory Tests 11/07/19 11/07/19 Range/Units 19:50 19:50 WBC 9.02 (3.98-10.04) K/mm3 RBC 5.23 H (3.98-5.22) M/mm3 Hgb 14.9 (11.2-15.7) gm/dl Hct 45.3 H (34.1-44.9) % MCV 86.6 (79.4-94.8) fl MCH 28.5 (25.6-32.2) pg MCHC 32.9 (32.2-35.5) g/dl RDW Std Deviation 42.8 (36.4-46.3) fL Plt Count 281 (182-369) K/mm3 MPV 9.4 (9.4-12.3) fl Neutrophils % (Manual) 59 (40-60) % Band Neutrophils % 0 (0-10) % Lymphocytes % (Manual) 31 (20-40) % Atypical Lymphs % 0 % Monocytes % (Manual) 6 (2-10) % Eosinophils % (Manual) 4 (0.7-5.8) % Basophils % (Manual) 0 L (0.1-1.2) Platelet Estimate Adequate Plt Morphology Comment Normal RBC Morph Comment Normal Sodium 139 (136-145) mEq/L Potassium 4.3 (3.5-5.1) mEq/L Chloride 102 (98-107) mEq/L Carbon Dioxide 28 (21-32) mEq/L Anion Gap 13.3 (5-15) BUN 15 (7-18) mg/dL Creatinine 0.9 (0.55-1.02) mg/dL Est Cr Clr Drug Dosing 61.86 mL/min Estimated GFR (MDRD) > 60 (>60) mL/min BUN/Creatinine Ratio 16.7 (14-18) Glucose 98 (74-106) mg/dL Calcium 9.6 (8.5-10.1) mg/dL Total Bilirubin 0.5 (0.2-1.0) mg/dL AST 19 (15-37) U/L ALT 33 (14-59) U/L Alkaline Phosphatase 112 (46-116) U/L Total Protein 8.4 H (6.4-8.2) g/dl Albumin 3.9 (3.4-5.0) g/dl Globulin 4.5 gm/dL Albumin/Globulin Ratio 0.9 L (1-2) Lipase 96 (73-393) U/L Meds: Medications Generic Name Dose Route Start Last Admin Trade Name Freq PRN Reason Stop Dose Admin Sodium Chloride 1,000 mls @ 150 mls/hr 11/07/19 19:30 11/07/19 20:06 Normal Saline IV 150 mls/hr ASDIRECTED GURMEET Administration Discontinued Medications Generic Name Dose Route Start Last Admin Trade Name Freq PRN Reason Stop Dose Admin Al Hydroxide/Mg Hydroxide 30 0 ml 11/07/19 19:23 11/07/19 20:06 ml/ Lidocaine HCl 15 ml PO 11/07/19 19:24 45 ml ONETIME STA Administration - Re-Assessments/Exams Free Text/Narrative Re-Assessment/Exam: 11/07/19 19:30 As above, the patient has been suffering from recurrent upper abdominal pain ever since that she underwent a cholecystectomy in 2010, with signs and symptoms most consistent with GERD, despite her Vonda fundoplication in October 2017. She was seen by me in this ED early this morning where blood work was found to be unremarkable, and she obtained temporary relief with a GI cocktail. I had instructed her to follow-up with her PCP, but instead, she went to the walk-in clinic this evening, and without performing any tests, was sent here to undergo an emergency CT scan of her abdomen and pelvis. I therefore ordered some blood work, a CT of the abdomen and pelvis with oral and IV contrast, a GI cocktail, and some IV fluid. 11/07/19 22:14 The patient's CBC is remarkable for a Hct elevated at 45.3, but with a Hgb normal at 14.9. The remainder of her CBC is unremarkable. Her CMP is unremarkable. Lipase is within normal limits at 96. CT of the abdomen and pelvis with oral and IV contrast as read by [facility] as: 1. Bilateral ovarian cysts. 2. Small hiatal hernia. 11/07/19 22:19 Test results discussed with the patient. She reports that she had temporary relief with a GI cocktail, and that the pain is recurred, although not as severe as before. I explained that the CT results do not change my opinion from this morning, and therefore my recommendations are the same. Departure - Departure Time of Disposition: 22:19 Disposition: Home, Self-Care 01 Condition: Good Clinical Impression: GERD (gastroesophageal reflux disease) - Discharge Information *PRESCRIPTION DRUG MONITORING PROGRAM REVIEWED*: Not Applicable *COPY OF PRESCRIPTION DRUG MONITORING REPORT IN PATIENT PRINCE: Not Applicable Referrals: Lily Sosa MD [Primary Care Provider] - Forms: ED Department Discharge Additional Instructions: You were seen in the emergency room for recurrent abdominal pain. Work-up in the ER included blood work and a CT scan of your abdomen and pelvis with oral and IV contrast. Your blood work was unremarkable, while your CT scan found that you have ovarian cysts on both sides, and a small hiatal hernia. No other abnormalities were found. As you had some improvement of your symptoms following the GI cocktail, the cause of your pain is most likely due to GERD (acid reflux). As discussed, we recommend that you consider switching from your current omeprazole to a different proton pump inhibitor, and in the meantime, since new proton pump inhibitors take about 3 days before they become effective, we recommend that you take an [id number]-[id number] H2 villa, such as famotidine (Pepcid), 1 tablet twice a day, for 3 days. As discussed, we also strongly recommended that you undergo an EGD (scope of your stomach) to evaluate the status of your Vonda fundoplication. There are numerous anatomic problems that can develop following a Vonda fundoplication that can result in new or continued acid reflux symptoms following a Vonda fundoplication, and an EGD is an essential part of that evaluation. We recommend that you follow-up with your PCP, Dr. Lily Sosa, to arrange for that EGD. If any other problems, please do not hesitate to return to the ER. Sepsis Event Note (ED) - Evaluation Sepsis Screening Result: No Definite Risk - Focused Exam Vital Signs: Vital Signs Temp Pulse Resp BP Pulse Ox 11/07/19 18:52 36.1 C 91 16 124/64 95 - My Orders Last 24 Hours: My Active Orders 11/07/19 19:20 Abdomen Pelvis w Cont [CT] Stat 11/07/19 19:30 Sodium Chloride 0.9% [Normal Saline] 1,000 ml IV ASDIRECTED - Assessment/Plan Last 24 Hours: My Active Orders 11/07/19 19:20 Abdomen Pelvis w Cont [CT] Stat 11/07/19 19:30 Sodium Chloride 0.9% [Normal Saline] 1,000 ml IV ASDIRECTED
--- NOTE | 2019-11-08 07:47 | CT ---
CT abdomen and pelvis Technique: Multiple axial sections were obtained from above the dome of the diaphragm inferiorly through the pubic symphysis. Intravenous and oral contrast was utilized. Delayed images were also obtained through the abdomen and pelvis. Comparison: No prior abdominal imaging is available. Findings: Visualized lung bases show nothing acute. Liver contains no focal parenchymal abnormality. Small to moderate sized hiatal hernia is present. Adrenal glands show no nodule. Pancreas is within normal limits. Surgical clips are seen from prior cholecystectomy. Pancreas shows no discrete abnormality. Kidneys show symmetric contrast enhancement without hydronephrosis or mass. Aorta shows no aneurysm. No retroperitoneal adenopathy or mesenteric abnormalities are seen. Cystic changes are seen within both ovaries. Largest cyst located within the left ovary measuring 4.0 cm. Small fat-containing femoral hernias are noted. Minimal fat-containing umbilical hernia is noted. Appendix felt to be visualized and is normal in size. No free fluid or inflammatory change is appreciated. Delayed images shows contrast within the distal ureters. 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 Ureters may join near the UVJ. Contrast noted within the bladder. Bone window settings were reviewed which show no acute osseous finding. Impression: 1. Cysts within both ovaries, largest cyst within the left ovary measuring 4.0 cm. 2. Other findings believed to be incidental. 3. Nothing acute is appreciated. Diagnostic code #3 This report was dictated in MDT I agree with preliminary report from [facility], finalized on 11/07/19, 10:43 PM Central Daylight Time
== END 2019-11-07 22:58 | disposition home or self-care (01) ==
LOC: JD.ED 18:17
DX: K21.9 Gastro-esophageal reflux disease without esophagitis (principal); R51 Headache; E78.00 Pure hypercholesterolemia, unspecified; J45.909 Unspecified asthma, uncomplicated; E03.9 Hypothyroidism, unspecified; Z88.1 Allergy status to other antibiotic agents; Z88.2 Allergy status to sulfonamides; Z79.899 Other long term (current) drug therapy
CPT/HCPCS: 36415; 74177; 80053; 83690; 85007; 85027; 99284; A9270; J7030

== ENCOUNTER 2020-02-29 10:27 | Inpatient (IN) | payer BC, MEDICAID ==
--- NOTE | 2020-02-29 12:04 | EDM.PDOC ---
ED HPI GENERAL MEDICAL PROBLEM - General Chief Complaint: Respiratory Problem Stated Complaint: COVID + Time Seen by Provider: 02/29/20 11:10 Source of Information: Reports: Patient, RN Notes Reviewed History Limitations: Reports: No Limitations - History of Present Illness INITIAL COMMENTS - FREE TEXT/NARRATIVE: Patient is a 49-year-old female who presents to the ED for the evaluation of her ongoing Covid symptoms. Patient notes that she had a random Covid test done at work on February 19, and states this was positive. She states that her symptoms started on February 20. She notes a dry cough, low-grade fever with a temperature of 100.1 F being the highest she has no notes. States he has an appetite but she has not really been eating a whole lot. She is complaining of worsening shortness of breath/dyspnea. She states that she has a history of asthma and high cholesterol, she takes no asthma medications. Her O2 sats are 85 to 86% on room air when she arrived to the ER. Oxygen was placed via nasal cannula at about 3 L/min. 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 Her primary care provider is Dr. Sosa. Chest Pain Score (Numeric/FACES): 6 - Related Data Allergies Allergy/AdvReac Type Severity Reaction Status Date / Time levofloxacin [From Levaquin] Allergy Rash Verified 02/29/20 10:46 sulfamethoxazole Allergy Mouth Sores Verified 02/29/20 10:46 [From Bactrim] trimethoprim [From Bactrim] Allergy Mouth Sores Verified 02/29/20 10:46 Home Meds: Home Meds Cetirizine [ZyrTEC] 10 mg PO DAILY 06/03/19 [History] Dicyclomine [Bentyl] 10 mg PO ASDIRECTED PRN 06/03/19 [History] Ezetimibe [Zetia] 10 mg PO DAILY 06/03/19 [History] Iron 325 mg PO DAILY 06/03/19 [History] Levothyroxine [Synthroid] 75 mcg PO ACBREAKFAST 06/03/19 [History] Montelukast [Singulair] 10 mg PO DAILY 06/03/19 [History] atorvaSTATin [Lipitor] 10 mg PO DAILY 06/03/19 [History] Baclofen 10 mg PO ASDIRECTED PRN 11/05/19 [History] Pramipexole Di-HCl [Mirapex] 0.25 mg PO BEDTIME 11/05/19 [History] Sucralfate [Carafate] 1 gm PO ASDIRECTED PRN 02/29/20 [History] Past Medical History HEENT History: Reports: Allergic Rhinitis, Impaired Vision Other HEENT History: wears eyeglasses. 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 UTILITY LOCATOR History: Reports: , Other (See Below) Other UNDERGROUND UTILITY LOCATOR History: ovarian cysts Musculoskeletal History: Reports: Fracture Endocrine/Metabolic History: Reports: Hypothyroidism Hematologic History: Reports: Anemia - Infectious Disease History Infectious Disease History: Reports: Chicken Pox, Influenza, Mononucleosis, Novel Coronavirus - Past Surgical History HEENT Surgical History: Reports: Naso-Sinus Surgery GI Surgical History: Reports: Cholecystectomy, Vonda Fundoplication Female Surgical History: Reports: Tubal Ligation Musculoskeletal Surgical History: Reports: Other (See Below) Other Musculoskeletal Surgeries/Procedures:: L) tibial platuae fx with repair Social & Family History - Family History Family Medical History: Noncontributory - Tobacco Use Tobacco Use Status *Q: Never Tobacco User Second Hand Smoke Exposure: No - Caffeine Use Caffeine Use: Reports: Coffee - Recreational Drug Use Recreational Drug Use: No - Living Situation & Occupation Living situation: Reports: , with Family (Daughter) Occupation: Employed ([employer]) ED ROS GENERAL - Review of Systems Review Of Systems: Comprehensive ROS is negative, except as noted in HPI. ED EXAM, GENERAL - Physical Exam Exam: See Below Exam Limited By: No Limitations General Appearance: Alert, WD/WN, No Apparent Distress Respiratory/Chest: No Respiratory Distress, Lungs Clear, Normal Breath Sounds, No Accessory Muscle Use, Chest Non-Tender Cardiovascular: Normal Peripheral Pulses, Regular Rate, Rhythm, No Murmur Peripheral Pulses: 2+: Radial (L), Radial (R) GI/Abdominal: Normal Bowel Sounds, Soft, Non-Tender, No Distention, No Mass Extremities: Normal Inspection, Normal Capillary Refill Neurological: Alert, Oriented, Normal Cognition, No Motor/Sensory Deficits Psychiatric: Normal Affect, Normal Mood Skin Exam: Warm, Dry, Intact, Normal Color, No Rash #1 Interpretation EKG Date: 02/29/20 Time: 01:09 Rhythm: NSR (sinus tach) Rate (Beats/Min): 109 [place]: Normal P-Wave: Present QRS: Normal ST-T: Normal QT: Normal EKG Interpretation Comments: No obvious ischemia or acute ST changes noted, reviewed by myself and Dr. Allen. Course - Vital Signs Last Recorded V/S: Last Vital Signs Temp 100.1 F 02/29/20 10:30 Pulse 116 H 02/29/20 10:30 Resp 26 H 02/29/20 10:30 BP 120/74 02/29/20 10:30 Pulse Ox 85 L 02/29/20 10:30 - Orders/Labs/Meds Orders: Active Orders 24 hr Category Date Time Status Patient Status [ADT] Routine ADT 02/29/20 12:39 Active EKG Documentation Completion [RC] STAT Care 02/29/20 11:14 Active Height and Weight [RC] DAILY Care 02/29/20 12:38 Active Intake and Output [RC] QSHIFT Care 02/29/20 12:41 Active Nurse Communication: Isolation [RC] ASDIRECTED Care 02/29/20 12:46 Active Oxygen Therapy [RC] PRN Care 02/29/20 12:39 Active Pulse Oximetry [RC] CONTINUOUS Care 02/29/20 12:41 Active RT Aerosol Therapy [RC] ASDIRECTED Care 02/29/20 12:43 Active VTE/DVT Education [RC] PER UNIT ROUTINE Care 02/29/20 12:39 Active Verify Patient Consent Obtain [RC] ASDIRECTED Care 02/29/20 12:39 Active Vital Signs [RC] Q4H Care 02/29/20 12:39 Active Consult to Case Management/Avionics Supervisor [CONS] Cons 02/29/20 12:38 Active Routine Consult to Geological Survey Field Assistant [CONS] Routine Cons 02/29/20 12:38 Active Consult to Spiritual Care [CONS] Routine Cons 02/29/20 12:38 Active Respiratory Care Assess and Treatment [CONS] Routine Cons 02/29/20 12:38 Active Regular Diet [DIET] Diet 02/29/20 Dinner Active Ang Chest [CT] Stat Exams 02/29/20 11:56 Ordered Chest 1V Frontal [CR] Stat Exams 02/29/20 11:14 Taken ABO/RH TYPE [BBK] Routine Lab 02/29/20 10:40 Results C-REACTIVE PROTEIN [CHEM] DAILY Lab 03/01/20 05:11 Ordered C-REACTIVE PROTEIN [CHEM] DAILY Lab 03/02/20 05:11 Ordered C-REACTIVE PROTEIN [CHEM] DAILY Lab 03/03/20 05:11 Ordered C-REACTIVE PROTEIN [CHEM] DAILY Lab 03/04/20 05:11 Ordered CBC WITH AUTO DIFF [HEME] DAILY Lab 03/01/20 05:11 Ordered CBC WITH AUTO DIFF [HEME] DAILY Lab 03/02/20 05:11 Ordered CBC WITH AUTO DIFF [HEME] DAILY Lab 03/03/20 05:11 Ordered CBC WITH AUTO DIFF [HEME] DAILY Lab 03/04/20 05:11 Ordered COMPREHENSIVE METABOLIC PN,CMP [CHEM] DAILY Lab 03/01/20 05:11 Ordered COMPREHENSIVE METABOLIC PN,CMP [CHEM] DAILY Lab 03/02/20 05:11 Ordered COMPREHENSIVE METABOLIC PN,CMP [CHEM] DAILY Lab 03/03/20 05:11 Ordered COMPREHENSIVE METABOLIC PN,CMP [CHEM] DAILY Lab 03/04/20 05:11 Ordered D-DIMER QUANTITATIVE [COAG] DAILY Lab 03/01/20 05:11 Ordered D-DIMER QUANTITATIVE [COAG] DAILY Lab 03/02/20 05:11 Ordered D-DIMER QUANTITATIVE [COAG] DAILY Lab 03/03/20 05:11 Ordered D-DIMER QUANTITATIVE [COAG] DAILY Lab 03/04/20 05:11 Ordered FRESH FROZEN PLASMA [BBK] Routine Lab 02/29/20 10:40 Results MAGNESIUM [CHEM] DAILY Lab 03/01/20 05:11 Ordered MAGNESIUM [CHEM] DAILY Lab 03/02/20 05:11 Ordered MAGNESIUM [CHEM] DAILY Lab 03/03/20 05:11 Ordered MAGNESIUM [CHEM] DAILY Lab 03/04/20 05:11 Ordered PATIENT RETYPE [BBK] Routine Lab 02/29/20 13:14 Received PHOSPHORUS [CHEM] DAILY Lab 03/01/20 05:11 Ordered PHOSPHORUS [CHEM] DAILY Lab 03/02/20 05:11 Ordered PHOSPHORUS [CHEM] DAILY Lab 03/03/20 05:11 Ordered PHOSPHORUS [CHEM] DAILY Lab 03/04/20 05:11 Ordered Acetaminophen [TylenoL] Med 02/29/20 12:38 Active 650 mg PO Q4H PRN Albuterol [Proventil Neb Soln] Med 02/29/20 12:38 Active 2.5 mg NEB Q2H PRN Magnesium Hydroxide [Milk of Magnesia] Med 02/29/20 12:38 Active 30 ml PO Q12H PRN Ondansetron [Zofran] Med 02/29/20 12:38 Active 4 mg IV Q4H PRN Remdesivir (Eua) [Remdesivir (EUA)] 100 mg Med 03/01/20 13:00 Active Sodium Chloride 0.9% [Normal Saline] 100 ml IV Q24H Remdesivir (Eua) [Remdesivir (EUA)] 200 mg Med 02/29/20 12:48 Active Sodium Chloride 0.9% [Normal Saline] 250 ml IV ONETIME Sodium Chloride 0.9% [Normal Saline] 100 ml Med 02/29/20 12:45 Active IV ASDIRECTED Sodium Chloride 0.9% [Normal Saline] 250 ml Med 02/29/20 12:45 Active IV ASDIRECTED Sodium Chloride 0.9% [Saline Flush] Med 02/29/20 12:38 Active 10 ml FLUSH ASDIRECTED PRN Isolation [COMM] Routine Oth 02/29/20 12:38 Ordered Saline Lock Insert [OM.PC] Routine Oth 02/29/20 12:38 Ordered Transfuse Fresh Frozen Plasma [COMM] Routine Oth 02/29/20 12:39 Ordered Resuscitation Status Routine Resus Stat 02/29/20 12:38 Ordered Medication Orders Acetaminophen (Tylenol) 650 mg PO Q4H PRN PRN Reason: Pain (Mild 1-3)/fever Albuterol (Proventil Neb Soln) 2.5 mg NEB Q2H PRN PRN Reason: Shortness Of Breath/wheezing Sodium Chloride (Normal Saline) 100 mls @ 60 mls/hr IV ASDIRECTED [facility] Last Admin: 02/29/20 12:36 Dose: 60 mls/hr Documented by: AMELIE Sodium Chloride (Normal Saline) 250 mls @ 20 mls/hr IV ASDIRECTED [facility] Remdesivir 200 mg/ Sodium (Chloride) 250 mls @ 250 mls/hr IV ONETIME ONE Stop: 02/29/20 13:47 Remdesivir 100 mg/ Sodium (Chloride) 100 mls @ 100 mls/hr IV Q24H [facility] Stop: 03/04/20 13:59 Magnesium Hydroxide (Milk Of Magnesia) 30 ml PO Q12H PRN PRN Reason: Constipation Ondansetron HCl (Zofran) 4 mg IV Q4H PRN PRN Reason: Nausea/Vomiting Sodium Chloride (Saline Flush) 10 ml FLUSH ASDIRECTED PRN PRN Reason: Keep Vein Open Labs: Laboratory Tests 02/29/20 02/29/20 02/29/20 Range/Units 10:40 10:40 10:40 WBC 9.53 (3.98-10.04) K/mm3 RBC 5.23 H (3.98-5.22) M/mm3 Hgb 14.5 (11.2-15.7) gm/dl Hct 45.1 H (34.1-44.9) % MCV 86.2 (79.4-94.8) fl MCH 27.7 (25.6-32.2) pg MCHC 32.2 (32.2-35.5) g/dl RDW Std Deviation 43.5 (36.4-46.3) fL Plt Count 204 D (182-369) K/mm3 MPV 9.9 (9.4-12.3) fl Neutrophils % (Manual) 85 H (40-60) % Band Neutrophils % 0 (0-10) % Lymphocytes % (Manual) 11 L (20-40) % Atypical Lymphs % 0 % Monocytes % (Manual) 4 (2-10) % Eosinophils % (Manual) 0 L (0.7-5.8) % Basophils % (Manual) 0 L (0.1-1.2) Platelet Estimate Adequate RBC Morph Comment Normal PT 11.4 (9.7-12.0) SECONDS INR 1.07 APTT 28.9 (21.7-31.4) SECONDS D-Dimer, Quantitative 2.62 H (0.19-0.50) mg/L Puncture Site ABG pH (7.35-7.45) ABG pCO2 (35.0-45.0) mmHg ABG pO2 (80.0-100.0) mmHg ABG HCO3 (22.0-26.0) meq/L ABG O2 Saturation (96.0-97.0) % ABG Base Excess (-2-2.0) Robert Test A-a Gradient mmHg O2 Delivery Device FiO2 (21.00-100.00) % Sodium (136-145) mEq/L Potassium (3.5-5.1) mEq/L Chloride (98-107) mEq/L Carbon Dioxide (21-32) mEq/L Anion Gap (5-15) BUN (7-18) mg/dL Creatinine (0.55-1.02) mg/dL Est Cr Clr Drug Dosing mL/min Estimated GFR (MDRD) (>60) mL/min BUN/Creatinine Ratio (14-18) Glucose (74-106) mg/dL Lactic Acid (0.4-2.0) mmol/L Calcium (8.5-10.1) mg/dL Magnesium (1.8-2.4) mg/dl Ferritin (8-252) ng/ml Total Bilirubin (0.2-1.0) mg/dL AST (15-37) U/L ALT (14-59) U/L Alkaline Phosphatase (46-116) U/L Lactate Dehydrogenase (81-234) U/L Troponin I (0.00-0.056) ng/mL C-Reactive Protein 28.4 H* (<1.0) mg/dL NT-Pro-B Natriuret Pep (0-125) pg/mL Total Protein (6.4-8.2) g/dl Albumin (3.4-5.0) g/dl Globulin gm/dL Albumin/Globulin Ratio (1-2) 02/29/20 02/29/20 02/29/20 Range/Units 10:40 10:40 10:40 WBC (3.98-10.04) K/mm3 RBC (3.98-5.22) M/mm3 Hgb (11.2-15.7) gm/dl Hct (34.1-44.9) % MCV (79.4-94.8) fl MCH (25.6-32.2) pg MCHC (32.2-35.5) g/dl RDW Std Deviation (36.4-46.3) fL Plt Count (182-369) K/mm3 MPV (9.4-12.3) fl Neutrophils % (Manual) (40-60) % Band Neutrophils % (0-10) % Lymphocytes % (Manual) (20-40) % Atypical Lymphs % % Monocytes % (Manual) (2-10) % Eosinophils % (Manual) (0.7-5.8) % Basophils % (Manual) (0.1-1.2) Platelet Estimate RBC Morph Comment PT (9.7-12.0) SECONDS INR APTT (21.7-31.4) SECONDS D-Dimer, Quantitative (0.19-0.50) mg/L Puncture Site ABG pH (7.35-7.45) ABG pCO2 (35.0-45.0) mmHg ABG pO2 (80.0-100.0) mmHg ABG HCO3 (22.0-26.0) meq/L ABG O2 Saturation (96.0-97.0) % ABG Base Excess (-2-2.0) Robert Test A-a Gradient mmHg O2 Delivery Device FiO2 (21.00-100.00) % Sodium 133 L (136-145) mEq/L Potassium 3.2 L (3.5-5.1) mEq/L Chloride 97 L (98-107) mEq/L Carbon Dioxide 26 (21-32) mEq/L Anion Gap 13.2 (5-15) BUN 12 (7-18) mg/dL Creatinine 0.9 (0.55-1.02) mg/dL Est Cr Clr Drug Dosing 61.86 mL/min Estimated GFR (MDRD) > 60 (>60) mL/min BUN/Creatinine Ratio 13.3 L (14-18) Glucose 124 H (74-106) mg/dL Lactic Acid (0.4-2.0) mmol/L Calcium 9.2 (8.5-10.1) mg/dL Magnesium 1.9 (1.8-2.4) mg/dl Ferritin 687 H (8-252) ng/ml Total Bilirubin 1.0 (0.2-1.0) mg/dL AST 70 H (15-37) U/L ALT 80 H (14-59) U/L Alkaline Phosphatase 108 (46-116) U/L Lactate Dehydrogenase 273 H (81-234) U/L Troponin I < 0.017 (0.00-0.056) ng/mL C-Reactive Protein (<1.0) mg/dL NT-Pro-B Natriuret Pep 148 H (0-125) pg/mL Total Protein 8.0 (6.4-8.2) g/dl Albumin 3.1 L (3.4-5.0) g/dl Globulin 4.9 gm/dL Albumin/Globulin Ratio 0.6 L (1-2) 02/29/20 02/29/20 Range/Units 10:40 11:58 WBC (3.98-10.04) K/mm3 RBC (3.98-5.22) M/mm3 Hgb (11.2-15.7) gm/dl Hct (34.1-44.9) % MCV (79.4-94.8) fl MCH (25.6-32.2) pg MCHC (32.2-35.5) g/dl RDW Std Deviation (36.4-46.3) fL Plt Count (182-369) K/mm3 MPV (9.4-12.3) fl Neutrophils % (Manual) (40-60) % Band Neutrophils % (0-10) % Lymphocytes % (Manual) (20-40) % Atypical Lymphs % % Monocytes % (Manual) (2-10) % Eosinophils % (Manual) (0.7-5.8) % Basophils % (Manual) (0.1-1.2) Platelet Estimate RBC Morph Comment PT (9.7-12.0) SECONDS INR APTT (21.7-31.4) SECONDS D-Dimer, Quantitative (0.19-0.50) mg/L Puncture Site Lt radial ABG pH 7.52 H (7.35-7.45) ABG pCO2 33.4 L (35.0-45.0) mmHg ABG pO2 50.0 L (80.0-100.0) mmHg ABG HCO3 26.9 H (22.0-26.0) meq/L ABG O2 Saturation 87.2 L (96.0-97.0) % ABG Base Excess 4.6 H (-2-2.0) Robert Test Positive A-a Gradient 58 mmHg O2 Delivery Device Room air FiO2 21.00 (21.00-100.00) % Sodium (136-145) mEq/L Potassium (3.5-5.1) mEq/L Chloride (98-107) mEq/L Carbon Dioxide (21-32) mEq/L Anion Gap (5-15) BUN (7-18) mg/dL Creatinine (0.55-1.02) mg/dL Est Cr Clr Drug Dosing mL/min Estimated GFR (MDRD) (>60) mL/min BUN/Creatinine Ratio (14-18) Glucose (74-106) mg/dL Lactic Acid 1.3 (0.4-2.0) mmol/L Calcium (8.5-10.1) mg/dL Magnesium (1.8-2.4) mg/dl Ferritin (8-252) ng/ml Total Bilirubin (0.2-1.0) mg/dL AST (15-37) U/L ALT (14-59) U/L Alkaline Phosphatase (46-116) U/L Lactate Dehydrogenase (81-234) U/L Troponin I (0.00-0.056) ng/mL C-Reactive Protein (<1.0) mg/dL NT-Pro-B Natriuret Pep (0-125) pg/mL Total Protein (6.4-8.2) g/dl Albumin (3.4-5.0) g/dl Globulin gm/dL Albumin/Globulin Ratio (1-2) Meds: Medications Generic Name Dose Route Start Last Admin Trade Name Freq PRN Reason Stop Dose Admin Acetaminophen 650 mg 02/29/20 12:38 Tylenol PO Q4H PRN Pain (Mild 1-3)/fever Albuterol 2.5 mg 02/29/20 12:38 Proventil Neb Soln NEB Q2H PRN Shortness Of Breath/wheezing Sodium Chloride 100 mls @ 60 mls/hr 02/29/20 12:45 02/29/20 12:36 Normal Saline IV 60 mls/hr ASDIRECTED [facility] Administration Sodium Chloride 250 mls @ 20 mls/hr 02/29/20 12:45 Normal Saline IV ASDIRECTED [facility] Remdesivir 200 mg/ Sodium 250 mls @ 250 mls/hr 02/29/20 12:48 Chloride IV 02/29/20 13:47 ONETIME ONE Remdesivir 100 mg/ Sodium 100 mls @ 100 mls/hr 03/01/20 13:00 Chloride IV 03/04/20 13:59 Q24H [facility] Magnesium Hydroxide 30 ml 02/29/20 12:38 Milk Of Magnesia PO Q12H PRN Constipation Ondansetron HCl 4 mg 02/29/20 12:38 Zofran IV Q4H PRN Nausea/Vomiting Sodium Chloride 10 ml 02/29/20 12:38 Saline Flush FLUSH ASDIRECTED PRN Keep Vein Open Discontinued Medications Generic Name Dose Route Start Last Admin Trade Name Prateekq PRN Reason Stop Dose Admin Acetaminophen 650 mg 02/29/20 12:38 Tylenol PO 02/29/20 12:39 ONCALL ONE Dexamethasone 6 mg 02/29/20 12:20 Dexamethasone IVPUSH 02/29/20 12:21 ONETIME ONE Diphenhydramine HCl 25 mg 02/29/20 12:38 Benadryl IVPUSH 02/29/20 12:39 ONCALL ONE Iopamidol 100 ml 02/29/20 12:34 02/29/20 12:36 Isovue-370 (76%) IVPUSH 02/29/20 12:35 68 ml ONETIME ONE Administration Sodium Chloride 10 ml 02/29/20 12:34 02/29/20 12:36 Saline Flush FLUSH 02/29/20 12:35 10 ml ONETIME ONE Administration - Re-Assessments/Exams Free Text/Narrative Re-Assessment/Exam: 02/29/20 12:02 Patient presents to the ED for the evaluation of her Covid symptoms. Labs are drawn at time of triage, the patient's temperature is mildly elevated at 100.1 F. Respiratory rate of 26, she was found to be 85% on room air, so the nursing staff did place 3 L of oxygen via nasal cannula at that time. Pulse is 116 bpm. The labs have mostly come back, and the CBC is fairly unremarkable, potassium is mildly low at 3.2. LDH is elevated, CRP and ferritin are still pending, D-dimer is markedly elevated at 2.62. Due to her oxygen requirements, I did consult Dr. Kulkarni our hospitalist and he does tentatively agree to the admission. We are going forward with the CT of her chest to rule out pulmonary embolus due to the elevated D-dimer. 02/29/20 13:[address] with contrast demonstrates no sign of a pulmonary embolus at this time. Departure - Departure Time of Disposition: 12:04 Disposition: Home, Self-Care 01 Condition: Good Clinical Impression: COVID-19, Hypoxia - Discharge Information *PRESCRIPTION DRUG MONITORING PROGRAM REVIEWED*: No *COPY OF PRESCRIPTION DRUG MONITORING REPORT IN PATIENT PRINCE: No Referrals: Lily Sosa MD [Primary Care Provider] - Forms: ED Department Discharge Sepsis Event Note (ED) - Evaluation Sepsis Screening Result: No Definite Risk - Focused Exam Vital Signs: Vital Signs Temp Pulse Resp BP Pulse Ox 02/29/20 10:30 100.1 F 116 H 26 H 120/74 85 L - My Orders Last 24 Hours: My Active Orders 02/29/20 11:14 EKG Documentation Completion [RC] STAT Chest 1V Frontal [CR] Stat 02/29/20 11:56 Ang Chest [CT] Stat 02/29/20 12:45 Sodium Chloride 0.9% [Normal Saline] 100 ml IV ASDIRECTED - Assessment/Plan Last 24 Hours: My Active Orders 02/29/20 11:14 EKG Documentation Completion [RC] STAT Chest 1V Frontal [CR] Stat 02/29/20 11:56 Ang Chest [CT] Stat 02/29/20 12:45 Sodium Chloride 0.9% [Normal Saline] 100 ml IV ASDIRECTED
[2020-02-29] MEDS ORDERED: Dexamethasone 10 MG/ML SDV IVPUSH ONE (12:20)
[2020-02-29] MEDS ORDERED: Sodium Chloride 0.9% 10 ML Syringe FLUSH ONE (12:34)
[2020-02-29] MEDS ORDERED: Iopamidol 755 Mg/ML 100 ML Bottle IVPUSH ONE (12:34)
[2020-02-29] MEDS ORDERED: Ondansetron 4 MG/2 ML SDV IV PRN (12:38)
[2020-02-29] MEDS ORDERED: diphenhydrAMINE 50 MG/ML SDV IVPUSH ONE ×2 (12:38→21:07)
[2020-02-29] MEDS ORDERED: Magnesium Hydroxide 400 MG/5 ML Susp 30 ML Cup PO PRN (12:38)
[2020-02-29] MEDS ORDERED: Sodium Chloride 0.9% 10 ML Syringe FLUSH PRN (12:38)
[2020-02-29] MEDS ORDERED: Acetaminophen 325 MG Tab PO ONE ×2 (12:38→21:05)
[2020-02-29] MEDS ORDERED: Sodium Chloride 0.9% 100 ML IV SCH (12:45)
[2020-02-29] MEDS ORDERED: Sodium Chloride 0.9% 250 ML IV SCH (12:45)
--- NOTE | 2020-02-29 14:20 | PCM.HP.2 ---
H&P History of Present Illness - General Date of Service: 02/29/20 Admit Problem/Dx: Admission Diagnosis/Problem Admission Diagnosis/Problem Hypoxia Source of Information: Patient, Provider History Limitations: Reports: No Limitations - History of Present Illness Initial Comments - Free Text/Narative: Patient is a 49-year-old female who presents to the ED for the evaluation of her ongoing Covid symptoms. Patient notes that she had a random Covid test done at work on February 19, and states this was positive. She states that her symptoms started on February 20. She notes a dry cough, low-grade fever with a temperature of 100.1 F being the highest she has no notes. States he has an appetite but she has not really been eating a whole lot. She is complaining of worsening shortness of breath/dyspnea. She states that she has a history of asthma and high cholesterol, she takes no asthma medications. Her O2 sats are 85 to 86% on room air when she arrived to the ER. Oxygen was placed via nasal cannula at about 3 L/min. 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 Her primary care provider is Dr. Sosa. Chest Pain Score (Numeric/FACES): 6 - Related Data Allergies/Adverse Reactions: Allergies Allergy/AdvReac Type Severity Reaction Status Date / Time levofloxacin [From Levaquin] Allergy Rash Verified 02/29/20 10:46 sulfamethoxazole Allergy Mouth Sores Verified 02/29/20 10:46 [From Bactrim] trimethoprim [From Bactrim] Allergy Mouth Sores Verified 02/29/20 10:46 Home Medications: Home Meds Cetirizine [ZyrTEC] 10 mg PO DAILY 06/03/19 [History] Dicyclomine [Bentyl] 10 mg PO ASDIRECTED PRN 06/03/19 [History] Ezetimibe [Zetia] 10 mg PO DAILY 06/03/19 [History] Iron 325 mg PO DAILY 06/03/19 [History] Levothyroxine [Synthroid] 75 mcg PO ACBREAKFAST 06/03/19 [History] Montelukast [Singulair] 10 mg PO DAILY 06/03/19 [History] atorvaSTATin [Lipitor] 10 mg PO DAILY 06/03/19 [History] Baclofen 10 mg PO ASDIRECTED PRN 11/05/19 [History] Pramipexole Di-HCl [Mirapex] 0.25 mg PO BEDTIME 11/05/19 [History] Sucralfate [Carafate] 1 gm PO ASDIRECTED PRN 02/29/20 [History] Past Medical History HEENT History: Reports: Allergic Rhinitis, Impaired Vision Other HEENT History: wears eyeglasses. 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 NARRATOR History: Reports: , Other (See Below) Other OB/BYN History: ovarian cysts Musculoskeletal History: Reports: Fracture Endocrine/Metabolic History: Reports: Hypothyroidism Hematologic History: Reports: Anemia - Infectious Disease History Infectious Disease History: Reports: Chicken Pox, Influenza, Mononucleosis, Novel Coronavirus - Past Surgical History HEENT Surgical History: Reports: Naso-Sinus Surgery GI Surgical History: Reports: Cholecystectomy, Vonda Fundoplication Female Surgical History: Reports: Tubal Ligation Musculoskeletal Surgical History: Reports: Other (See Below) Other Musculoskeletal Surgeries/Procedures:: L) tibial platuae fx with repair Social & Family History - Family History Family Medical History: Noncontributory - Tobacco Use Tobacco Use Status *Q: Never Tobacco User Second Hand Smoke Exposure: No - Caffeine Use Caffeine Use: Reports: Coffee - Recreational Drug Use Recreational Drug Use: No - Living Situation & Occupation Living situation: Reports: , with Family (Daughter) Occupation: Employed ([employer]) H&P Review of Systems - Review of Systems: Review Of Systems: See Below General: Reports: Fever, Chills, Malaise, Decreased Appetite HEENT: Reports: Sinus Congestion Pulmonary: Reports: Shortness of Breath, Cough. Denies: Sputum Cardiovascular: Reports: No Symptoms Gastrointestinal: Reports: Decreased Appetite, Other (decreased taste) Genitourinary: Reports: No Symptoms Musculoskeletal: Reports: No Symptoms Skin: Reports: No Symptoms Psychiatric: Reports: No Symptoms Neurological: Reports: No Symptoms Exam - Exam Exam: See Below - Vital Signs Vital Signs: Last Vital Signs Temp 100.0 F 02/29/20 14:10 Pulse 105 H 02/29/20 14:10 Resp 24 H 02/29/20 14:10 BP 138/67 02/29/20 14:10 Pulse Ox 93 L 02/29/20 14:10 Weight: 199 lb - Exam Quality Assessment: Supplemental Oxygen (3 L per nasal cannula), DVT Prophylaxis (Lovenox) General: Alert, Oriented, Cooperative, Mild Distress HEENT: Conjunctiva Clear, EACs Clear, Hearing Intact, Mucosa Moist & [place], Pupils Equal, Pupils Reactive Neck: Supple, Trachea Midline. No: Lymphadenopathy Lungs: Decreased Breath Sounds, Crackles (Bilateral bases) Cardiovascular: Regular Rate, Regular Rhythm, Normal S1, Normal S2 GI/Abdominal Exam: Normal Bowel Sounds, Soft, Non-Tender, No Distention (Female) Exam: Deferred Rectal (Female) Exam: Deferred Back Exam: Normal Inspection, Full Range of Motion Extremities: Normal Inspection, Normal Range of Motion, Non-Tender, No Pedal Edema, Normal Capillary Refill Peripheral Pulses: 2+: Radial (L), Radial (R), Dorsalis Pedis (L), Dorsalis Pedis (R) Skin: Warm, Dry, Intact Neuro Extensive - Mental Status: Alert, Oriented x3, Normal Mood/Affect, Normal Cognition, Memory Intact Psychiatric: Alert, Normal Affect, Normal Mood - Patient Data Lab Results Last 24 hrs: Laboratory Results - last 24 hr 02/29/20 02/29/20 02/29/20 Range/Units 10:40 10:40 10:40 WBC 9.53 (3.98-10.04) K/mm3 RBC 5.23 H (3.98-5.22) M/mm3 Hgb 14.5 (11.2-15.7) gm/dl Hct 45.1 H (34.1-44.9) % MCV 86.2 (79.4-94.8) fl MCH 27.7 (25.6-32.2) pg MCHC 32.2 (32.2-35.5) g/dl RDW Std Deviation 43.5 (36.4-46.3) fL Plt Count 204 D (182-369) K/mm3 MPV 9.9 (9.4-12.3) fl Neutrophils % (Manual) 85 H (40-60) % Band Neutrophils % 0 (0-10) % Lymphocytes % (Manual) 11 L (20-40) % Atypical Lymphs % 0 % Monocytes % (Manual) 4 (2-10) % Eosinophils % (Manual) 0 L (0.7-5.8) % Basophils % (Manual) 0 L (0.1-1.2) Platelet Estimate Adequate RBC Morph Comment Normal PT 11.4 (9.7-12.0) SECONDS INR 1.07 APTT 28.9 (21.7-31.4) SECONDS D-Dimer, Quantitative 2.62 H (0.19-0.50) mg/L Puncture Site ABG pH (7.35-7.45) ABG pCO2 (35.0-45.0) mmHg ABG pO2 (80.0-100.0) mmHg ABG HCO3 (22.0-26.0) meq/L ABG O2 Saturation (96.0-97.0) % ABG Base Excess (-2-2.0) Robert Test A-a Gradient mmHg O2 Delivery Device FiO2 (21.00-100.00) % Sodium (136-145) mEq/L Potassium (3.5-5.1) mEq/L Chloride (98-107) mEq/L Carbon Dioxide (21-32) mEq/L Anion Gap (5-15) BUN (7-18) mg/dL Creatinine (0.55-1.02) mg/dL Est Cr Clr Drug Dosing mL/min Estimated GFR (MDRD) (>60) mL/min BUN/Creatinine Ratio (14-18) Glucose (74-106) mg/dL Lactic Acid (0.4-2.0) mmol/L Calcium (8.5-10.1) mg/dL Magnesium (1.8-2.4) mg/dl Ferritin (8-252) ng/ml Total Bilirubin (0.2-1.0) mg/dL AST (15-37) U/L ALT (14-59) U/L Alkaline Phosphatase (46-116) U/L Lactate Dehydrogenase (81-234) U/L Troponin I (0.00-0.056) ng/mL C-Reactive Protein 28.4 H* (<1.0) mg/dL NT-Pro-B Natriuret Pep (0-125) pg/mL Total Protein (6.4-8.2) g/dl Albumin (3.4-5.0) g/dl Globulin gm/dL Albumin/Globulin Ratio (1-2) Blood Type 02/29/20 02/29/20 02/29/20 Range/Units 10:40 10:40 10:40 WBC (3.98-10.04) K/mm3 RBC (3.98-5.22) M/mm3 Hgb (11.2-15.7) gm/dl Hct (34.1-44.9) % MCV (79.4-94.8) fl MCH (25.6-32.2) pg MCHC (32.2-35.5) g/dl RDW Std Deviation (36.4-46.3) fL Plt Count (182-369) K/mm3 MPV (9.4-12.3) fl Neutrophils % (Manual) (40-60) % Band Neutrophils % (0-10) % Lymphocytes % (Manual) (20-40) % Atypical Lymphs % % Monocytes % (Manual) (2-10) % Eosinophils % (Manual) (0.7-5.8) % Basophils % (Manual) (0.1-1.2) Platelet Estimate RBC Morph Comment PT (9.7-12.0) SECONDS INR APTT (21.7-31.4) SECONDS D-Dimer, Quantitative (0.19-0.50) mg/L Puncture Site ABG pH (7.35-7.45) ABG pCO2 (35.0-45.0) mmHg ABG pO2 (80.0-100.0) mmHg ABG HCO3 (22.0-26.0) meq/L ABG O2 Saturation (96.0-97.0) % ABG Base Excess (-2-2.0) Robert Test A-a Gradient mmHg O2 Delivery Device FiO2 (21.00-100.00) % Sodium 133 L (136-145) mEq/L Potassium 3.2 L (3.5-5.1) mEq/L Chloride 97 L (98-107) mEq/L Carbon Dioxide 26 (21-32) mEq/L Anion Gap 13.2 (5-15) BUN 12 (7-18) mg/dL Creatinine 0.9 (0.55-1.02) mg/dL Est Cr Clr Drug Dosing 61.86 mL/min Estimated GFR (MDRD) > 60 (>60) mL/min BUN/Creatinine Ratio 13.3 L (14-18) Glucose 124 H (74-106) mg/dL Lactic Acid (0.4-2.0) mmol/L Calcium 9.2 (8.5-10.1) mg/dL Magnesium 1.9 (1.8-2.4) mg/dl Ferritin 687 H (8-252) ng/ml Total Bilirubin 1.0 (0.2-1.0) mg/dL AST 70 H (15-37) U/L ALT 80 H (14-59) U/L Alkaline Phosphatase 108 (46-116) U/L Lactate Dehydrogenase 273 H (81-234) U/L Troponin I < 0.017 (0.00-0.056) ng/mL C-Reactive Protein (<1.0) mg/dL NT-Pro-B Natriuret Pep 148 H (0-125) pg/mL Total Protein 8.0 (6.4-8.2) g/dl Albumin 3.1 L (3.4-5.0) g/dl Globulin 4.9 gm/dL Albumin/Globulin Ratio 0.6 L (1-2) Blood Type 02/29/20 02/29/20 02/29/20 Range/Units 10:40 10:40 11:58 WBC (3.98-10.04) K/mm3 RBC (3.98-5.22) M/mm3 Hgb (11.2-15.7) gm/dl Hct (34.1-44.9) % MCV (79.4-94.8) fl MCH (25.6-32.2) pg MCHC (32.2-35.5) g/dl RDW Std Deviation (36.4-46.3) fL Plt Count (182-369) K/mm3 MPV (9.4-12.3) fl Neutrophils % (Manual) (40-60) % Band Neutrophils % (0-10) % Lymphocytes % (Manual) (20-40) % Atypical Lymphs % % Monocytes % (Manual) (2-10) % Eosinophils % (Manual) (0.7-5.8) % Basophils % (Manual) (0.1-1.2) Platelet Estimate RBC Morph Comment PT (9.7-12.0) SECONDS INR APTT (21.7-31.4) SECONDS D-Dimer, Quantitative (0.19-0.50) mg/L Puncture Site Lt radial ABG pH 7.52 H (7.35-7.45) ABG pCO2 33.4 L (35.0-45.0) mmHg ABG pO2 50.0 L (80.0-100.0) mmHg ABG HCO3 26.9 H (22.0-26.0) meq/L ABG O2 Saturation 87.2 L (96.0-97.0) % ABG Base Excess 4.6 H (-2-2.0) Robert Test Positive A-a Gradient 58 mmHg O2 Delivery Device Room air FiO2 21.00 (21.00-100.00) % Sodium (136-145) mEq/L Potassium (3.5-5.1) mEq/L Chloride (98-107) mEq/L Carbon Dioxide (21-32) mEq/L Anion Gap (5-15) BUN (7-18) mg/dL Creatinine (0.55-1.02) mg/dL Est Cr Clr Drug Dosing mL/min Estimated GFR (MDRD) (>60) mL/min BUN/Creatinine Ratio (14-18) Glucose (74-106) mg/dL Lactic Acid 1.3 (0.4-2.0) mmol/L Calcium (8.5-10.1) mg/dL Magnesium (1.8-2.4) mg/dl Ferritin (8-252) ng/ml Total Bilirubin (0.2-1.0) mg/dL AST (15-37) U/L ALT (14-59) U/L Alkaline Phosphatase (46-116) U/L Lactate Dehydrogenase (81-234) U/L Troponin I (0.00-0.056) ng/mL C-Reactive Protein (<1.0) mg/dL NT-Pro-B Natriuret Pep (0-125) pg/mL Total Protein (6.4-8.2) g/dl Albumin (3.4-5.0) g/dl Globulin gm/dL Albumin/Globulin Ratio (1-2) Blood Type B POSITIVE Result Diagrams: 02/29/20 10:40 02/29/20 10:40 Sepsis Event Note - Evaluation Sepsis Screening Result: No Definite Risk - Focused Exam Vital Signs: Vital Signs Temp Temp Pulse Pulse Resp BP BP 10/29/20 14:10 100.0 F 105 H 24 H 138/67 02/29/20 10:30 100.1 F 116 H 26 H 120/74 Pulse Ox 02/29/20 14:10 93 L 02/29/20 10:30 85 L - Problem List (1) COVID-19 SNOMED Code(s): 789620198 ICD Code: U07.1 - COVID-19 Status: Acute Priority: High Current Visit: Yes (2) Hypoxia SNOMED Code(s): 639472471 ICD Code: R09.02 - HYPOXEMIA Status: Acute Priority: High Current Visit: Yes Problem List Initiated/Reviewed/Updated: Yes Orders Last 24hrs: Active Orders 24 hr Category Date Time Status Patient Status [ADT] Routine ADT 02/29/20 12:39 Active EKG Documentation Completion [RC] STAT Care 02/29/20 11:14 Active Height and Weight [RC] DAILY Care 02/29/20 12:38 Active Intake and Output [RC] QSHIFT Care 02/29/20 12:41 Active Nurse Communication: Isolation [RC] ASDIRECTED Care 02/29/20 12:46 Active Oxygen Therapy [RC] PRN Care 02/29/20 12:39 Active Oxygen Therapy, ED [RC] ASDIRECTED Care 02/29/20 13:38 Active Pulse Oximetry [RC] CONTINUOUS Care 02/29/20 12:41 Active RT Aerosol Therapy [RC] ASDIRECTED Care 02/29/20 12:43 Active VTE/DVT Education [RC] PER UNIT ROUTINE Care 02/29/20 12:39 Active Verify Patient Consent Obtain [RC] ASDIRECTED Care 02/29/20 12:39 Active Vital Signs [RC] Q4H Care 02/29/20 12:39 Active Consult to Case Management/[employer]over [CONS] Cons 02/29/20 12:38 Active Routine Consult to Superintendent Storage Area [CONS] Routine Cons 02/29/20 12:38 Active Consult to Spiritual Care [CONS] Routine Cons 02/29/20 12:38 Active Respiratory Care Assess and Treatment [CONS] Routine Cons 02/29/20 12:38 Active Regular Diet [DIET] Diet 02/29/20 Dinner Active Ang Chest [CT] Stat Exams 02/29/20 11:56 Taken Chest 1V Frontal [CR] Stat Exams 02/29/20 11:14 Taken ABO/RH TYPE [BBK] Routine Lab 02/29/20 10:40 Results C-REACTIVE PROTEIN [CHEM] DAILY Lab 03/01/20 05:11 Ordered C-REACTIVE PROTEIN [CHEM] DAILY Lab 03/02/20 05:11 Ordered C-REACTIVE PROTEIN [CHEM] DAILY Lab 03/03/20 05:11 Ordered C-REACTIVE PROTEIN [CHEM] DAILY Lab 03/04/20 05:11 Ordered CBC WITH AUTO DIFF [HEME] DAILY Lab 03/01/20 05:11 Ordered CBC WITH AUTO DIFF [HEME] DAILY Lab 03/02/20 05:11 Ordered CBC WITH AUTO DIFF [HEME] DAILY Lab 03/03/20 05:11 Ordered CBC WITH AUTO DIFF [HEME] DAILY Lab 03/04/20 05:11 Ordered COMPREHENSIVE METABOLIC PN,CMP [CHEM] DAILY Lab 03/01/20 05:11 Ordered COMPREHENSIVE METABOLIC PN,CMP [CHEM] DAILY Lab 03/02/20 05:11 Ordered COMPREHENSIVE METABOLIC PN,CMP [CHEM] DAILY Lab 03/03/20 05:11 Ordered COMPREHENSIVE METABOLIC PN,CMP [CHEM] DAILY Lab 03/04/20 05:11 Ordered D-DIMER QUANTITATIVE [COAG] DAILY Lab 03/01/20 05:11 Ordered D-DIMER QUANTITATIVE [COAG] DAILY Lab 03/02/20 05:11 Ordered D-DIMER QUANTITATIVE [COAG] DAILY Lab 03/03/20 05:11 Ordered D-DIMER QUANTITATIVE [COAG] DAILY Lab 03/04/20 05:11 Ordered FRESH FROZEN PLASMA [BBK] Routine Lab 02/29/20 10:40 Results MAGNESIUM [CHEM] DAILY Lab 03/01/20 05:11 Ordered MAGNESIUM [CHEM] DAILY Lab 03/02/20 05:11 Ordered MAGNESIUM [CHEM] DAILY Lab 03/03/20 05:11 Ordered MAGNESIUM [CHEM] DAILY Lab 03/04/20 05:11 Ordered PHOSPHORUS [CHEM] DAILY Lab 03/01/20 05:11 Ordered PHOSPHORUS [CHEM] DAILY Lab 03/02/20 05:11 Ordered PHOSPHORUS [CHEM] DAILY Lab 03/03/20 05:11 Ordered PHOSPHORUS [CHEM] DAILY Lab 03/04/20 05:11 Ordered Acetaminophen [TylenoL] Med 02/29/20 12:38 Active 650 mg PO Q4H PRN Albuterol [Proventil Neb Soln] Med 02/29/20 12:38 Active 2.5 mg NEB Q2H PRN Enoxaparin [Lovenox] Med 02/29/20 14:00 Active 30 mg SUBCUT Q12H Magnesium Hydroxide [Milk of Magnesia] Med 02/29/20 12:38 Active 30 ml PO Q12H PRN Ondansetron [Zofran] Med 02/29/20 12:38 Active 4 mg IV Q4H PRN Remdesivir (Eua) [Remdesivir (EUA)] 100 mg Med 03/01/20 14:00 Active Sodium Chloride 0.9% [Normal Saline] 100 ml IV Q24H Remdesivir (Eua) [Remdesivir (EUA)] 200 mg Med 02/29/20 14:00 Active Sodium Chloride 0.9% [Normal Saline] 250 ml IV ONETIME Sodium Chloride 0.9% [Normal Saline] 100 ml Med 02/29/20 12:45 Active IV ASDIRECTED Sodium Chloride 0.9% [Normal Saline] 250 ml Med 02/29/20 12:45 Active IV ASDIRECTED Sodium Chloride 0.9% [Saline Flush] Med 02/29/20 12:38 Active 10 ml FLUSH ASDIRECTED PRN Isolation [COMM] Routine Oth 02/29/20 12:38 Ordered Saline Lock Insert [OM.PC] Routine Oth 02/29/20 12:38 Ordered Transfuse Fresh Frozen Plasma [COMM] Routine Oth 02/29/20 12:39 Ordered Resuscitation Status Routine Resus Stat 02/29/20 12:38 Ordered Medication Orders Acetaminophen (Tylenol) 650 mg PO Q4H PRN PRN Reason: Pain (Mild 1-3)/fever Albuterol (Proventil Neb Soln) 2.5 mg NEB Q2H PRN PRN Reason: Shortness Of Breath/wheezing Enoxaparin Sodium (Lovenox) 30 mg SUBCUT Q12H [facility] Sodium Chloride (Normal Saline) 100 mls @ 60 mls/hr IV ASDIRECTED [facility] Last Admin: 02/29/20 12:36 Dose: 60 mls/hr Documented by: AMELIE Sodium Chloride (Normal Saline) 250 mls @ 20 mls/hr IV ASDIRECTED [facility] Remdesivir 100 mg/ Sodium (Chloride) 100 mls @ 100 mls/hr IV Q24H [facility] Stop: 03/04/20 14:59 Remdesivir 200 mg/ Sodium (Chloride) 250 mls @ 250 mls/hr IV ONETIME ONE Stop: 02/29/20 14:59 Magnesium Hydroxide (Milk Of Magnesia) 30 ml PO Q12H PRN PRN Reason: Constipation Ondansetron HCl (Zofran) 4 mg IV Q4H PRN PRN Reason: Nausea/Vomiting Sodium Chloride (Saline Flush) 10 ml FLUSH ASDIRECTED PRN PRN Reason: Keep Vein Open Assessment/Plan Comment:: 02/29/20 * Tested positive for Covid on February 19. * Developed symptoms of Covid on February 20 which she describes as feeling like she has a sinus infection. However over the course of the last 8 days she has developed a persistent nonproductive cough and shortness of breath also is noticing that her taste and smell are decreasing. She denies any diarrhea stools or abdominal pain or headache or body aches. * O2 saturations in the ER were 85% on room air currently on 3 L per nasal cannula. * Initial vitals in the ER were a temp of 100.1, pulse of 116, respiratory rate of 26, blood pressure of 120/74, and O2 saturations of 85% on room air. * Lab work reveals: WBC 9.53 D-dimer 2.62 patient was sent for CTA which did not show any PEs. C-reactive protein 28.4, sodium 133, potassium 3.2, BUN 12, creatinine 0.9, GFR is greater than 60, magnesium 1.9, ferritin 687, LDH 273, BNP 148, lactic acid 1.3 * ABGs on room air reveal a pH of 7.52, PCO2 33.4, PO2 50, HCO3 26.9. * The patient did receive an IV dose of dexamethasone 6 mg in the emergency department. PLAN: * Remdesivir 200 mg IV now then 100 mg IV daily for a total of 5 days. * Potassium 40 mEq p.o. every 4 hours x3 doses * Convalescent plasma 2 units when available. I spoke with the patient to provide information about convalescent plasma for her. I offered her the fax sheet for patients and parents/caregivers for COVID-19 convalescent plasma to read and review. I stated the therapy has been approved by an emergency use authorization process and has not fully been FDA reviewed or approved. I shared potential risks from the therapy including transmission of blood-borne pathogen such as HIV and hepatitis C, allergic and transfusion related reactions, post transfusion purpura. Additionally theoretical risks including a phenomenon called antibody dependent enhancement of infection such as is seen in dengue or attenuation of an immune response that may make patients more susceptible to reinfection. I discussed that there are other potential treatment options that are currently not FDA approved to treat Covid. Offered opportunity to ask questions and all questions were answered. The patient voiced understanding and agreed to proceed with the treatment for herself. * Oxygen as needed to keep sats between 88 to 92% * Respiratory care to titrate oxygen. * Albuterol nebulizers every 2 hours as needed for shortness of breath or wheezing * Incentive spirometer and flutter valve every hour while awake * Lovenox for DVT prophylaxis * Continuous pulse oximetry * executive services administrator to consult for discharge planning. * Dietitian to consult for increased caloric needs. * Dexamethasone 6 mg daily * Patient is a full code * Repeat labs in the a.m. * Monitor daily weight and intake and output * Monitor vital signs Patient will be here at least 5 days as needed for the length of treatment for Covid. - Mortality Measure Prognosis:: Good
--- NOTE | 2020-02-29 14:28 | CR ---
PROCEDURE INFORMATION: Exam: XR Chest, 1 View Exam date and time: 02/29/2020 11:06 AM Age: 49 years old Clinical indication: Shortness of breath and other: Hypoxia TECHNIQUE: Imaging protocol: XR of the chest Views: 1 view. COMPARISON: CR Chest 1V Frontal 06/03/2019 10:27 PM FINDINGS: Lungs: Shallow inspiration. Patchy bilateral linear opacities in right mid and lower lung and in the left lower lung. This could be due to infiltrate or atelectasis. Pleural space: Unremarkable. No pleural effusion. No pneumothorax. Heart/Mediastinum: Unremarkable. No cardiomegaly. Bones/joints: Unremarkable. IMPRESSION: Patchy bilateral linear opacities could be due to infiltrate or atelectasis. Thank you for allowing us to participate in the care of your patient. Dictated and Authenticated by: Rekha Reese MD 02/29/2020 1:56 PM Central Time ([place] & [place]) LUCY
--- NOTE | 2020-02-29 14:35 | CT ---
"PROCEDURE INFORMATION: Exam: CT Angiography Chest With Contrast Exam date and time: 02/29/2020 12:06 PM Age: 49 years old Clinical indication: Abnormal findings; Abnormal diagnostic tests; Elevated d- dimer; Patient HX: Covid positive, d-dimer 2.62 today, hypoxic TECHNIQUE: Imaging protocol: Computed tomographic angiography of the chest with intravenous contrast. 3D rendering (Not supervised by radiologist): MIP and/or 3D reconstructed images were created by the technologist. Contrast material: ISOVUE 370; Contrast volume: 68 ml; Contrast route: INTRAVENOUS (IV); COMPARISON: CT Ang Chest 06/20/2019 2:51 PM FINDINGS: Pulmonary arteries: Good opacification of the pulmonary arteries. No filling defects are identified in the pulmonary arteries to suggest the presence of a pulmonary embolism. Aorta: Unremarkable. No aortic aneurysm. No aortic dissection. Lungs: New patchy bilateral areas of ground-glass attenuation and interlobular thickening predominantly in a peripheral distribution. Pleural space: New tiny bilateral pleural effusions. Heart: Unremarkable. No cardiomegaly. No pericardial effusion. Mediastinal space: Moderate-sized esophageal hiatal hernia. Lymph nodes: Unremarkable. No enlarged lymph nodes. Gallbladder and bile ducts: Cholecystectomy. Bones/joints: Unremarkable. No acute fracture. Soft tissues: Unremarkable. IMPRESSION: 1. No pulmonary embolism identified. DOE YEH | Final Radiology Report CONFIDENTIALITY STATEMENT This report is intended only for use by the referring physician, and only in accordance with law. If you received this in error, call [phone]. Page 2 of 2 2. Patchy bilateral areas of ground-glass infiltrate and interstitial thickening. Commonly reported imaging features of COVID-19 pneumonia are present. Other processes such as influenza pneumonia and organizing pneumonia, as can be seen with drug toxicity and connective tissue disease, can cause a similar imaging pattern. (Reference: Suman) References: Suman Doe, et al., Radiological Society of [place] Expert Consensus Statement on Reporting Chest CT Findings Related to COVID-19. Endorsed by the Society of Thoracic Radiology, the [employer], and [employer]NA. Published July 26, 2019. Thank you for allowing us to participate in the care of your patient. Dictated and Authenticated by: Rekha Reese MD 02/29/2020 1:54 PM Central Time ([place] & [place]) [facility]"
[2020-02-29] MEDS: Potassium Chloride 20 MEQ Tab.ER PO SCH ×3 (16:28→21:41)
[2020-02-29] MEDS: Enoxaparin 30 MG/0.3 ML Syringe SUBCUT SCH (16:28)
[2020-02-29] MEDS ORDERED: Sodium Chloride 0.9% 250 ML ONE (20:11)
[2020-03-01] MEDS: Enoxaparin 30 MG/0.3 ML Syringe SUBCUT SCH ×2 (02:59→15:17)
[2020-03-01] MEDS: Acetaminophen 325 MG Tab PO PRN (05:30)
[2020-03-01] MEDS ORDERED: Baclofen 10 MG Tab PO PRN (07:58)
[2020-03-01] MEDS ORDERED: Sucralfate 1 GM Tab PO PRN (09:00)
[2020-03-01] MEDS: Ezetimibe 10 MG Tab PO SCH (10:16)
[2020-03-01] MEDS: Loratadine 10 MG Tab PO SCH (10:16)
[2020-03-01] MEDS: Simvastatin 10 MG Tab PO SCH (10:16)
[2020-03-01] MEDS: Ferrous Sulfate 324 MG Tab.EC PO SCH (10:16)
[2020-03-01] MEDS: Montelukast 10 MG Tab PO SCH (10:17)
--- NOTE | 2020-03-01 10:35 | PCM.PN ---
- General Info Date of Service: 03/01/20 Admission Dx/Problem (Free Text): Admission Diagnosis/Problem Admission Diagnosis/Problem Hypoxia Subjective Update: Reports increased cough and shortness of breath today. O2 needs have increased to 4 L per nasal cannula. Functional Status: Reports: Pain Controlled, Tolerating Diet, Ambulating, Urinating, Incentive Spirometry - Review of Systems General: Reports: Fatigue, Appetite HEENT: Reports: No Symptoms, Glasses, Headaches (Last night) Pulmonary: Reports: Shortness of Breath, Cough. Denies: Sputum Cardiovascular: Reports: No Symptoms Gastrointestinal: Reports: No Symptoms Genitourinary: Reports: No Symptoms Musculoskeletal: Reports: No Symptoms Skin: Reports: No Symptoms Neurological: Reports: No Symptoms Psychiatric: Reports: No Symptoms - Patient Data Vitals - Most Recent: Last Vital Signs Temp 98.2 F 03/01/20 07:19 Pulse 78 03/01/20 07:19 Resp 26 H 03/01/20 08:00 BP 114/68 03/01/20 07:19 Pulse Ox 93 L 03/01/20 08:04 Weight - Most Recent: 203 lb I&O - Last 24 Hours: Intake & Output 02/29/20 03/01/20 03/01/20 22:59 06:59 14:59 Intake Total 454 600 Output Total 1300 Balance 454 -700 Lab Results Last 24 Hours: Laboratory Results - last 24 hr 02/29/20 02/29/20 02/29/20 Range/Units 10:40 10:40 10:40 WBC 9.53 (3.98-10.04) K/mm3 RBC 5.23 H (3.98-5.22) M/mm3 Hgb 14.5 (11.2-15.7) gm/dl Hct 45.1 H (34.1-44.9) % MCV 86.2 (79.4-94.8) fl MCH 27.7 (25.6-32.2) pg MCHC 32.2 (32.2-35.5) g/dl RDW Std Deviation 43.5 (36.4-46.3) fL Plt Count 204 D (182-369) K/mm3 MPV 9.9 (9.4-12.3) fl Neut % (Auto) (34.0-71.1) % Lymph % (Auto) (19.3-51.7) % [place] % (Auto) (4.7-12.5) % Eos % (Auto) (0.7-5.8) Baso % (Auto) (0.1-1.2) % Neut # (Auto) (1.56-6.13) K/mm3 Lymph # (Auto) (1.18-3.74) K/mm3 [place] # (Auto) (0.24-0.36) K/mm3 Eos # (Auto) (0.04-0.36) K/mm3 Baso # (Auto) (0.01-0.08) K/mm3 Neutrophils % (Manual) 85 H (40-60) % Band Neutrophils % 0 (0-10) % Lymphocytes % (Manual) 11 L (20-40) % Atypical Lymphs % 0 % Monocytes % (Manual) 4 (2-10) % Eosinophils % (Manual) 0 L (0.7-5.8) % Basophils % (Manual) 0 L (0.1-1.2) Manual Slide Review Platelet Estimate Adequate RBC Morph Comment Normal PT 11.4 (9.7-12.0) SECONDS INR 1.07 APTT 28.9 (21.7-31.4) SECONDS D-Dimer, Quantitative 2.62 H (0.19-0.50) mg/L Puncture Site ABG pH (7.35-7.45) ABG pCO2 (35.0-45.0) mmHg ABG pO2 (80.0-100.0) mmHg ABG HCO3 (22.0-26.0) meq/L ABG O2 Saturation (96.0-97.0) % ABG Base Excess (-2-2.0) Robert Test A-a Gradient mmHg O2 Delivery Device FiO2 (21.00-100.00) % Sodium (136-145) mEq/L Potassium (3.5-5.1) mEq/L Chloride (98-107) mEq/L Carbon Dioxide (21-32) mEq/L Anion Gap (5-15) BUN (7-18) mg/dL Creatinine (0.55-1.02) mg/dL Est Cr Clr Drug Dosing mL/min Estimated GFR (MDRD) (>60) mL/min BUN/Creatinine Ratio (14-18) Glucose (74-106) mg/dL Lactic Acid (0.4-2.0) mmol/L Calcium (8.5-10.1) mg/dL Phosphorus (2.6-4.7) mg/dL Magnesium (1.8-2.4) mg/dl Ferritin (8-252) ng/ml Total Bilirubin (0.2-1.0) mg/dL AST (15-37) U/L ALT (14-59) U/L Alkaline Phosphatase (46-116) U/L Lactate Dehydrogenase (81-234) U/L Troponin I (0.00-0.056) ng/mL C-Reactive Protein 28.4 H* (<1.0) mg/dL NT-Pro-B Natriuret Pep (0-125) pg/mL Total Protein (6.4-8.2) g/dl Albumin (3.4-5.0) g/dl Globulin gm/dL Albumin/Globulin Ratio (1-2) Blood Type 02/29/20 02/29/20 02/29/20 Range/Units 10:40 10:40 10:40 WBC (3.98-10.04) K/mm3 RBC (3.98-5.22) M/mm3 Hgb (11.2-15.7) gm/dl Hct (34.1-44.9) % MCV (79.4-94.8) fl MCH (25.6-32.2) pg MCHC (32.2-35.5) g/dl RDW Std Deviation (36.4-46.3) fL Plt Count (182-369) K/mm3 MPV (9.4-12.3) fl Neut % (Auto) (34.0-71.1) % Lymph % (Auto) (19.3-51.7) % [place] % (Auto) (4.7-12.5) % Eos % (Auto) (0.7-5.8) Baso % (Auto) (0.1-1.2) % Neut # (Auto) (1.56-6.13) K/mm3 Lymph # (Auto) (1.18-3.74) K/mm3 [place] # (Auto) (0.24-0.36) K/mm3 Eos # (Auto) (0.04-0.36) K/mm3 Baso # (Auto) (0.01-0.08) K/mm3 Neutrophils % (Manual) (40-60) % Band Neutrophils % (0-10) % Lymphocytes % (Manual) (20-40) % Atypical Lymphs % % Monocytes % (Manual) (2-10) % Eosinophils % (Manual) (0.7-5.8) % Basophils % (Manual) (0.1-1.2) Manual Slide Review Platelet Estimate RBC Morph Comment PT (9.7-12.0) SECONDS INR APTT (21.7-31.4) SECONDS D-Dimer, Quantitative (0.19-0.50) mg/L Puncture Site ABG pH (7.35-7.45) ABG pCO2 (35.0-45.0) mmHg ABG pO2 (80.0-100.0) mmHg ABG HCO3 (22.0-26.0) meq/L ABG O2 Saturation (96.0-97.0) % ABG Base Excess (-2-2.0) Robert Test A-a Gradient mmHg O2 Delivery Device FiO2 (21.00-100.00) % Sodium 133 L (136-145) mEq/L Potassium 3.2 L (3.5-5.1) mEq/L Chloride 97 L (98-107) mEq/L Carbon Dioxide 26 (21-32) mEq/L Anion Gap 13.2 (5-15) BUN 12 (7-18) mg/dL Creatinine 0.9 (0.55-1.02) mg/dL Est Cr Clr Drug Dosing 61.86 mL/min Estimated GFR (MDRD) > 60 (>60) mL/min BUN/Creatinine Ratio 13.3 L (14-18) Glucose 124 H (74-106) mg/dL Lactic Acid (0.4-2.0) mmol/L Calcium 9.2 (8.5-10.1) mg/dL Phosphorus (2.6-4.7) mg/dL Magnesium 1.9 (1.8-2.4) mg/dl Ferritin 687 H (8-252) ng/ml Total Bilirubin 1.0 (0.2-1.0) mg/dL AST 70 H (15-37) U/L ALT 80 H (14-59) U/L Alkaline Phosphatase 108 (46-116) U/L Lactate Dehydrogenase 273 H (81-234) U/L Troponin I < 0.017 (0.00-0.056) ng/mL C-Reactive Protein (<1.0) mg/dL NT-Pro-B Natriuret Pep 148 H (0-125) pg/mL Total Protein 8.0 (6.4-8.2) g/dl Albumin 3.1 L (3.4-5.0) g/dl Globulin 4.9 gm/dL Albumin/Globulin Ratio 0.6 L (1-2) Blood Type 02/29/20 02/29/20 02/29/20 Range/Units 10:40 10:40 11:58 WBC (3.98-10.04) K/mm3 RBC (3.98-5.22) M/mm3 Hgb (11.2-15.7) gm/dl Hct (34.1-44.9) % MCV (79.4-94.8) fl MCH (25.6-32.2) pg MCHC (32.2-35.5) g/dl RDW Std Deviation (36.4-46.3) fL Plt Count (182-369) K/mm3 MPV (9.4-12.3) fl Neut % (Auto) (34.0-71.1) % Lymph % (Auto) (19.3-51.7) % [place] % (Auto) (4.7-12.5) % Eos % (Auto) (0.7-5.8) Baso % (Auto) (0.1-1.2) % Neut # (Auto) (1.56-6.13) K/mm3 Lymph # (Auto) (1.18-3.74) K/mm3 [place] # (Auto) (0.24-0.36) K/mm3 Eos # (Auto) (0.04-0.36) K/mm3 Baso # (Auto) (0.01-0.08) K/mm3 Neutrophils % (Manual) (40-60) % Band Neutrophils % (0-10) % Lymphocytes % (Manual) (20-40) % Atypical Lymphs % % Monocytes % (Manual) (2-10) % Eosinophils % (Manual) (0.7-5.8) % Basophils % (Manual) (0.1-1.2) Manual Slide Review Platelet Estimate RBC Morph Comment PT (9.7-12.0) SECONDS INR APTT (21.7-31.4) SECONDS D-Dimer, Quantitative (0.19-0.50) mg/L Puncture Site Lt radial ABG pH 7.52 H (7.35-7.45) ABG pCO2 33.4 L (35.0-45.0) mmHg ABG pO2 50.0 L (80.0-100.0) mmHg ABG HCO3 26.9 H (22.0-26.0) meq/L ABG O2 Saturation 87.2 L (96.0-97.0) % ABG Base Excess 4.6 H (-2-2.0) Robert Test Positive A-a Gradient 58 mmHg O2 Delivery Device Room air FiO2 21.00 (21.00-100.00) % Sodium (136-145) mEq/L Potassium (3.5-5.1) mEq/L Chloride (98-107) mEq/L Carbon Dioxide (21-32) mEq/L Anion Gap (5-15) BUN (7-18) mg/dL Creatinine (0.55-1.02) mg/dL Est Cr Clr Drug Dosing mL/min Estimated GFR (MDRD) (>60) mL/min BUN/Creatinine Ratio (14-18) Glucose (74-106) mg/dL Lactic Acid 1.3 (0.4-2.0) mmol/L Calcium (8.5-10.1) mg/dL Phosphorus (2.6-4.7) mg/dL Magnesium (1.8-2.4) mg/dl Ferritin (8-252) ng/ml Total Bilirubin (0.2-1.0) mg/dL AST (15-37) U/L ALT (14-59) U/L Alkaline Phosphatase (46-116) U/L Lactate Dehydrogenase (81-234) U/L Troponin I (0.00-0.056) ng/mL C-Reactive Protein (<1.0) mg/dL NT-Pro-B Natriuret Pep (0-125) pg/mL Total Protein (6.4-8.2) g/dl Albumin (3.4-5.0) g/dl Globulin gm/dL Albumin/Globulin Ratio (1-2) Blood Type B POSITIVE 03/01/20 03/01/20 03/01/20 Range/Units 04:36 04:36 04:36 WBC 8.45 (3.98-10.04) K/mm3 RBC 4.77 (3.98-5.22) M/mm3 Hgb 13.5 (11.2-15.7) gm/dl Hct 42.2 (34.1-44.9) % MCV 88.5 (79.4-94.8) fl MCH 28.3 (25.6-32.2) pg MCHC 32.0 L (32.2-35.5) g/dl RDW Std Deviation 43.1 (36.4-46.3) fL Plt Count 182 (182-369) K/mm3 MPV 10.0 (9.4-12.3) fl Neut % (Auto) 88.9 H (34.0-71.1) % Lymph % (Auto) 6.3 L (19.3-51.7) % [place] % (Auto) 4.4 L (4.7-12.5) % Eos % (Auto) 0 L (0.7-5.8) Baso % (Auto) 0.0 L (0.1-1.2) % Neut # (Auto) 7.52 H (1.56-6.13) K/mm3 Lymph # (Auto) 0.53 L (1.18-3.74) K/mm3 [place] # (Auto) 0.37 H (0.24-0.36) K/mm3 Eos # (Auto) 0.00 L (0.04-0.36) K/mm3 Baso # (Auto) 0.00 L (0.01-0.08) K/mm3 Neutrophils % (Manual) (40-60) % Band Neutrophils % (0-10) % Lymphocytes % (Manual) (20-40) % Atypical Lymphs % % Monocytes % (Manual) (2-10) % Eosinophils % (Manual) (0.7-5.8) % Basophils % (Manual) (0.1-1.2) Manual Slide Review Abnormal smear Platelet Estimate RBC Morph Comment PT (9.7-12.0) SECONDS INR APTT (21.7-31.4) SECONDS D-Dimer, Quantitative 1.59 H (0.19-0.50) mg/L Puncture Site ABG pH (7.35-7.45) ABG pCO2 (35.0-45.0) mmHg ABG pO2 (80.0-100.0) mmHg ABG HCO3 (22.0-26.0) meq/L ABG O2 Saturation (96.0-97.0) % ABG Base Excess (-2-2.0) Robert Test A-a Gradient mmHg O2 Delivery Device FiO2 (21.00-100.00) % Sodium 138 (136-145) mEq/L Potassium 4.5 (3.5-5.1) mEq/L Chloride 103 (98-107) mEq/L Carbon Dioxide 26 (21-32) mEq/L Anion Gap 13.5 (5-15) BUN 16 (7-18) mg/dL Creatinine 0.8 (0.55-1.02) mg/dL Est Cr Clr Drug Dosing 69.59 mL/min Estimated GFR (MDRD) > 60 (>60) mL/min BUN/Creatinine Ratio 20.0 H (14-18) Glucose 131 H (74-106) mg/dL Lactic Acid (0.4-2.0) mmol/L Calcium 9.3 (8.5-10.1) mg/dL Phosphorus 2.8 (2.6-4.7) mg/dL Magnesium 2.2 (1.8-2.4) mg/dl Ferritin (8-252) ng/ml Total Bilirubin 0.5 (0.2-1.0) mg/dL AST 43 H (15-37) U/L ALT 69 H (14-59) U/L Alkaline Phosphatase 94 (46-116) U/L Lactate Dehydrogenase (81-234) U/L Troponin I (0.00-0.056) ng/mL C-Reactive Protein 32.2 H* (<1.0) mg/dL NT-Pro-B Natriuret Pep (0-125) pg/mL Total Protein 8.1 (6.4-8.2) g/dl Albumin 3.1 L (3.4-5.0) g/dl Globulin 5.0 gm/dL Albumin/Globulin Ratio 0.6 L (1-2) Blood Type Med Orders - Current: Current Medications Acetaminophen (Tylenol) 650 mg PO Q4H PRN PRN Reason: Pain (Mild 1-3)/fever Last Admin: 03/01/20 05:30 Dose: 650 mg Documented by: Albuterol (Proventil Neb Soln) 2.5 mg NEB Q2H PRN PRN Reason: Shortness Of Breath/wheezing Baclofen (Lioresal) 10 mg PO BID PRN PRN Reason: Pain Dexamethasone (Dexamethasone) 6 mg PO Q24H [facility] Stop: 03/09/20 14:01 Dicyclomine HCl (Bentyl) 10 mg PO TID PRN PRN Reason: Abdominal Pain Ezetimibe (Zetia) 10 mg PO DAILY [facility] Last Admin: 03/01/20 10:16 Dose: 10 mg Documented by: Enoxaparin Sodium (Lovenox) 30 mg SUBCUT Q12H [facility] Last Admin: 03/01/20 02:59 Dose: 30 mg Documented by: Ferrous Sulfate (Ferrous Sulfate) 324 mg PO DAILY [facility] Last Admin: 03/01/20 10:16 Dose: 324 mg Documented by: Remdesivir 100 mg/ Sodium (Chloride) 100 mls @ 100 mls/hr IV Q24H [facility] Stop: 03/04/20 14:59 Ceftriaxone Sodium 2 gm/ (Sodium Chloride) 100 mls @ 200 mls/hr IV Q24H [facility] Azithromycin 500 mg/ Sodium (Chloride) 250 mls @ 250 mls/hr IV Q24H [facility] Levothyroxine Sodium (Levothyroxine) 75 mcg PO ACBREAKFAST [facility] Loratadine (Claritin) 10 mg PO DAILY [facility] Last Admin: 03/01/20 10:16 Dose: 10 mg Documented by: Magnesium Hydroxide (Milk Of Magnesia) 30 ml PO Q12H PRN PRN Reason: Constipation Montelukast Sodium (Singulair) 10 mg PO DAILY [facility] Last Admin: 03/01/20 10:17 Dose: 10 mg Documented by: Ondansetron HCl (Zofran) 4 mg IV Q4H PRN PRN Reason: Nausea/Vomiting Pramipexole Dihydrochloride (Mirapex) 0.25 mg PO BEDTIME [facility] Simvastatin (Zocor) 10 mg PO DAILY [facility] Last Admin: 03/01/20 10:16 Dose: 10 mg Documented by: Sodium Chloride (Saline Flush) 10 ml FLUSH ASDIRECTED PRN PRN Reason: Keep Vein Open Sucralfate (Carafate) 1 gm PO TIDAC PRN PRN Reason: Abdominal Pain Discontinued Medications Acetaminophen (Tylenol) 650 mg PO ONCALL ONE Stop: 02/29/20 12:39 Last Admin: 02/29/20 20:02 Dose: Not Given Documented by: Acetaminophen (Tylenol) 650 mg PO NOW ONE Stop: 02/29/20 21:06 Last Admin: 02/29/20 20:25 Dose: 650 mg Documented by: Dexamethasone (Dexamethasone) 6 mg IVPUSH ONETIME ONE Stop: 02/29/20 12:21 Last Admin: 02/29/20 13:30 Dose: 6 mg Documented by: Diphenhydramine HCl (Benadryl) 25 mg IVPUSH ONCALL ONE Stop: 02/29/20 12:39 Last Admin: 02/29/20 20:02 Dose: Not Given Documented by: Diphenhydramine HCl (Benadryl) 25 mg IVPUSH ONETIME ONE Stop: 02/29/20 21:08 Last Admin: 02/29/20 20:25 Dose: 25 mg Documented by: Sodium Chloride (Normal Saline) 100 mls @ 60 mls/hr IV ASDIRECTED [facility] Last Admin: 02/29/20 12:36 Dose: 60 mls/hr Documented by: Sodium Chloride (Normal Saline) 250 mls @ 20 mls/hr IV ASDIRECTED [facility] Remdesivir 200 mg/ Sodium (Chloride) 250 mls @ 250 mls/hr IV ONETIME ONE Stop: 02/29/20 13:47 Last Admin: 02/29/20 19:23 Dose: Not Given Documented by: Remdesivir 200 mg/ Sodium (Chloride) 250 mls @ 250 mls/hr IV ONETIME ONE Stop: 02/29/20 14:59 Last Admin: 02/29/20 16:31 Dose: 250 mls/hr Documented by: Sodium Chloride (Normal Saline) Confirm Administered Dose 250 mls @ as directed .ROUTE .STK-MED ONE Stop: 02/29/20 20:12 Last Admin: 02/29/20 21:49 Dose: 125 mls/hr Documented by: Iopamidol (Isovue-370 (76%)) 100 ml IVPUSH ONETIME ONE Stop: 02/29/20 12:35 Last Admin: 10/29/20 12:36 Dose: 68 ml Documented by: Potassium Chloride (Klor-Con M20) 40 meq PO Q4H [facility] Stop: 02/29/20 22:31 Last Admin: 02/29/20 21:41 Dose: 40 meq Documented by: Sodium Chloride (Saline Flush) 10 ml FLUSH ONETIME ONE Stop: 02/29/20 12:35 Last Admin: 02/29/20 12:36 Dose: 10 ml Documented by: - Exam Quality Assessment: Supplemental Oxygen (4 L per nasal cannula.), DVT Prophylaxis (Lovenox.) General: Alert, Oriented, Cooperative, Mild Distress HEENT: Pupils Equal, Pupils Reactive, Mucous Membr. Moist/[place] Neck: Supple, Trachea Midline. No: Lymphadenopathy Lungs: Decreased Breath Sounds, Crackles (To bilateral bases) Cardiovascular: Regular Rate, Regular Rhythm, No Murmurs GI/Abdominal Exam: Normal Bowel Sounds, Soft, Non-Tender, No Distention (Female) Exam: Deferred Back Exam: Normal Inspection, Full Range of Motion Extremities: Normal Inspection, Normal Range of Motion, Non-Tender, No Pedal Edema, Normal Capillary Refill Peripheral Pulses: 2+: Radial (L), Radial (R), Dorsalis Pedis (L), Dorsalis P ericka (R) Skin: Warm, Dry, Intact Neurological: No New Focal Deficit Psy/Mental Status: Alert, Normal Affect, Normal Mood Sepsis Event Note - Evaluation Sepsis Screening Result: No Definite Risk - Focused Exam Vital Signs: Vital Signs Temp Pulse Resp BP Pulse Ox Pulse Ox 03/01/20 08:04 93 L 03/01/20 08:00 26 H 03/01/20 07:19 98.2 F 78 16 114/68 94 L 03/01/20 07:00 23 H 03/01/20 06:00 25 H 03/01/20 05:58 90 L 03/01/20 03:04 98.1 F 76 18 116/71 93 L - Problem List & Annotations (1) COVID-19 SNOMED Code(s): 830915083 Code(s): U07.1 - COVID-19 Status: Acute Priority: High Current Visit: Yes (2) Hypoxia SNOMED Code(s): 405963545 Code(s): R09.02 - HYPOXEMIA Status: Acute Priority: High Current Visit: Yes (3) Pneumonia due to 2019 novel coronavirus SNOMED Code(s): 077804651885063019 Code(s): U07.1 - COVID-19; J12.89 - OTHER VIRAL PNEUMONIA Status: Acute Priority: High Current Visit: Yes - Problem List Review Problem List Initiated/Reviewed/Updated: Yes - My Orders Last 24 Hours: My Active Orders 02/29/20 12:38 Height and Weight [RC] 04 Consult to Case Management/Sous Chef Kitchen Manager [CONS] Routine Consult to Senior Occupational Therapist [CONS] Routine Consult to Spiritual Care [CONS] Routine Respiratory Care Assess and Treatment [CONS] Routine Acetaminophen [TylenoL] 650 mg PO Q4H PRN Albuterol [Proventil Neb Soln] 2.5 mg NEB Q2H PRN Magnesium Hydroxide [Milk of Magnesia] 30 ml PO Q12H PRN Ondansetron [Zofran] 4 mg IV Q4H PRN Sodium Chloride 0.9% [Saline Flush] 10 ml FLUSH ASDIRECTED PRN Isolation [COMM] Routine Saline Lock Insert [OM.PC] Routine Resuscitation Status Routine 02/29/20 12:39 Patient Status [ADT] Routine Oxygen Therapy [RC] PRN VTE/DVT Education [RC] DAILY Verify Patient Consent Obtain [RC] ASDIRECTED Vital Signs [RC] Q4HR Transfuse Fresh Frozen Plasma [COMM] Routine 02/29/20 12:41 Intake and Output [RC] 04,16 Pulse Oximetry [RC] CONTINUOUS 02/29/20 12:43 RT Aerosol Therapy [RC] ASDIRECTED 02/29/20 14:00 Enoxaparin [Lovenox] 30 mg SUBCUT Q12H 02/29/20 14:32 Chest Physiotherapy [RT Chest Physiotherapy] [RC] ASDIRECTED RT Incentive Spirometry [RC] ASDIRECTED 02/29/20 Dinner Regular Diet [DIET] 03/01/20 04:36 PROCALCITONIN [REF] Stat 03/01/20 07:58 Baclofen [Lioresal] 10 mg PO BID PRN Dicyclomine [Bentyl] 10 mg PO TID PRN 03/01/20 09:00 Ezetimibe [Zetia] 10 mg PO DAILY Ferrous Sulfate 324 mg PO DAILY Loratadine [Claritin] 10 mg PO DAILY Montelukast [Singulair] 10 mg PO DAILY Simvastatin [Zocor] 10 mg PO DAILY Sucralfate [Carafate] 1 gm PO TIDAC PRN 03/01/20 09:50 Chest 1V Frontal [CR] Routine 03/01/20 10:30 Azithromycin [Zithromax] 500 mg Sodium Chloride 0.9% [Normal Saline (AdvBag)] 250 ml IV Q24H cefTRIAXone [Rocephin] 2 gm Sodium Chloride 0.9% [Normal Saline] 100 ml IV Q24H 03/01/20 14:00 Remdesivir (Eua) [Remdesivir (EUA)] 100 mg Sodium Chloride 0.9% [Normal Saline] 100 ml IV Q24H dexAMETHasone 6 mg PO Q24H 03/01/20 21:00 Pramipexole [Mirapex] 0.25 mg PO BEDTIME 03/02/20 05:11 C-REACTIVE PROTEIN [CHEM] DAILY CBC WITH AUTO DIFF [HEME] DAILY COMPREHENSIVE METABOLIC PN,CMP [CHEM] DAILY D-DIMER QUANTITATIVE [COAG] DAILY MAGNESIUM [CHEM] DAILY PHOSPHORUS [CHEM] DAILY 03/02/20 06:00 Levothyroxine 75 mcg PO ACBREAKFAST 03/03/20 05:11 C-REACTIVE PROTEIN [CHEM] DAILY CBC WITH AUTO DIFF [HEME] DAILY COMPREHENSIVE METABOLIC PN,CMP [CHEM] DAILY D-DIMER QUANTITATIVE [COAG] DAILY MAGNESIUM [CHEM] DAILY PHOSPHORUS [CHEM] DAILY 03/04/20 05:11 C-REACTIVE PROTEIN [CHEM] DAILY CBC WITH AUTO DIFF [HEME] DAILY COMPREHENSIVE METABOLIC PN,CMP [CHEM] DAILY D-DIMER QUANTITATIVE [COAG] DAILY MAGNESIUM [CHEM] DAILY PHOSPHORUS [CHEM] DAILY - Assessment Assessment:: 03/01/20 * Increased shortness of breath with activity today. * Increased oxygen need now requiring 4 L per nasal cannula * Increased crackles noted to bilateral bases * Using incentive spirometer and flutter valve * Has received 2 units of convalescent plasma * Day 2 remdesivir and dexamethasone * Chest x-ray from today reveals worsening groundglass airspace disease within the lower lung steel bilaterally since the prior examination * Vital signs otherwise stable and patient is afebrile. * Labs reveal:WBC 8.45, D-dimer 1.59 down from 2.62,Potassium 4.5 up from 3.2, BUN 16, Creatinine 0.8, GFR greater than 60, Glucose range 124-131, C-reactive protein 32.2 up from 28.4 * Procalcitonin added to today's lab work * On Lovenox for DVT prophylaxis. 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 - Plan Plan:: 02/29/20 * Tested positive for Covid on February 19. * Developed symptoms of Covid on February 20 which she describes as feeling like she has a sinus infection. However over the course of the last 8 days she has developed a persistent nonproductive cough and shortness of breath also is noticing that her taste and smell are decreasing. She denies any diarrhea stools or abdominal pain or headache or body aches. * O2 saturations in the ER were 85% on room air currently on 3 L per nasal cannula. * Initial vitals in the ER were a temp of 100.1, pulse of 116, respiratory rate of 26, blood pressure of 120/74, and O2 saturations of 85% on room air. * Lab work reveals: WBC 9.53 D-dimer 2.62 patient was sent for CTA which did not show any PEs. C-reactive protein 28.4, sodium 133, potassium 3.2, BUN 12, creatinine 0.9, GFR is greater than 60, magnesium 1.9, ferritin 687, LDH 273, BNP 148, lactic acid 1.3 * ABGs on room air reveal a pH of 7.52, PCO2 33.4, PO2 50, HCO3 26.9. * The patient did receive an IV dose of dexamethasone 6 mg in the emergency department. PLAN: * Remdesivir 200 mg IV now then 100 mg IV daily for a total of 5 days. * Potassium 40 mEq p.o. every 4 hours x3 doses * Convalescent plasma 2 units when available. I spoke with the patient to provide information about convalescent plasma for her. I offered her the fax sheet for patients and parents/caregivers for COVID-19 convalescent plasma to read and review. I stated the therapy has been approved by an emergency use authorization process and has not fully been FDA reviewed or approved. I shared potential risks from the therapy including transmission of blood-borne pathogen such as HIV and hepatitis C, allergic and transfusion related reactions, post transfusion purpura. Additionally theoretical risks including a phenomenon called antibody dependent enhancement of infection such as is seen in dengue or attenuation of an immune response that may make patients more susceptible to reinfection. I discussed that there are other potential treatment options that are currently not FDA approved to treat Covid. Offered opportunity to ask questions and all questions were answered. The patient voiced understanding and agreed to proceed with the treatment for herself. * Oxygen as needed to keep sats between 88 to 92% * Respiratory care to titrate oxygen. * Albuterol nebulizers every 2 hours as needed for shortness of breath or wheez ing * Incentive spirometer and flutter valve every hour while awake * Lovenox for DVT prophylaxis * Continuous pulse oximetry * [employer] dispatcher to consult for discharge planning. * Dietitian to consult for increased caloric needs. * Dexamethasone 6 mg daily * Patient is a full code * Repeat labs in the a.m. * Monitor daily weight and intake and output * Monitor vital signs Patient will be here at least 5 days as needed for the length of treatment for Covid. 03/01/20 * Continue remdesivir and dexamethasone * Continue incentive spirometry and flutter valve * Start Rocephin 2 g IV every 24 hours for 5 days and Zithromax 500 mg IV every 24 hours for 3 days due to worsening pneumonia on chest x-ray and increased oxygen needs. * Respiratory therapy to continue titrating oxygen * Albuterol nebulizers as needed for shortness of breath or wheezing * Lovenox for DVT prophylaxis * Continuous pulse oximetry * Continue to monitor vital signs and intakes and outputs * Repeat lab work in the a.m.
[2020-03-01] MEDS: Azithromycin 500 MG in Sodium Chloride 0.9% 250 ML IV SCH (11:00)
--- NOTE | 2020-03-01 11:20 | CR ---
PROCEDURE INFORMATION: Exam: XR Chest, 1 View Exam date and time: 03/01/2020 9:39 AM Age: 49 years old Clinical indication: Shortness of breath TECHNIQUE: Imaging protocol: XR of the chest Views: 1 view. COMPARISON: CR Chest 1V Frontal 02/29/2020 11:06 AM FINDINGS: Lungs: The lung volumes are decreased with vascular crowding secondary to elevation of the diaphragms which is likely on the basis of poor inspiratory effort. Worsening ground-glass airspace disease within the lower lung steel bilaterally since the prior examination. Pleural space: Unremarkable. No pleural effusion. No pneumothorax. Heart/Mediastinum: Unremarkable. No cardiomegaly. Bones/joints: Unremarkable. IMPRESSION: Worsening ground-glass airspace disease within the lower lung steel bilaterally since the prior examination. Thank you for allowing us to participate in the care of your patient. Dictated and Authenticated by: Arie Patten MD 03/01/2020 11:24 AM Central Time ([place] & [place]) MTDD
[2020-03-01] MEDS: cefTRIAXone 2 GM in Sodium Chloride 0.9% 100 ML IV SCH (13:26)
[2020-03-01] MEDS: REMDESIVIR (EUA) 100 MG in Sodium Chloride 0.9% 100 ML IV SCH (14:13)
[2020-03-01] MEDS: Dexamethasone 4 MG Tab PO SCH (15:18)
[2020-03-01] MEDS: Pramipexole 0.25 MG Tab PO SCH (20:33)
[2020-03-02] MEDS: Dicyclomine 10 MG Cap PO PRN ×3 (02:06→21:49)
[2020-03-02] MEDS: Enoxaparin 30 MG/0.3 ML Syringe SUBCUT SCH ×2 (04:13→15:41)
[2020-03-02] MEDS: Albuterol 0.083% 2.5 MG/3 ML Neb Soln NEB PRN ×2 (04:44→19:53)
[2020-03-02] MEDS: Levothyroxine 75 MCG Tab PO SCH (06:09)
[2020-03-02] MEDS: Montelukast 10 MG Tab PO SCH (08:09)
[2020-03-02] MEDS: Simvastatin 10 MG Tab PO SCH (08:09)
[2020-03-02] MEDS: Loratadine 10 MG Tab PO SCH (08:09)
[2020-03-02] MEDS: Ferrous Sulfate 324 MG Tab.EC PO SCH (08:09)
[2020-03-02] MEDS: Ezetimibe 10 MG Tab PO SCH (08:10)
[2020-03-02] MEDS: Acetaminophen 325 MG Tab PO PRN ×2 (08:16→20:06)
--- NOTE | 2020-03-02 09:04 | PCM.PN ---
- General Info Date of Service: 03/02/20 Admission Dx/Problem (Free Text): Admission Diagnosis/Problem Admission Diagnosis/Problem Hypoxia Subjective Update: Patient has had continued worsening of her oxygenation overnight and today. She states that she feels well. She does complain about shortness of breath and cough. Patient continues to have a good appetite eating 100% of her meals. Functional Status: Reports: Pain Controlled - Review of Systems General: Reports: No Symptoms HEENT: Reports: No Symptoms Pulmonary: Reports: Shortness of Breath, Cough Cardiovascular: Reports: No Symptoms Gastrointestinal: Reports: No Symptoms Skin: Reports: No Symptoms Neurological: Reports: No Symptoms Psychiatric: Reports: No Symptoms - Patient Data Vitals - Most Recent: Last Vital Signs Temp 97.9 F 03/02/20 08:03 Pulse 91 03/02/20 08:03 Resp 25 H 03/02/20 08:03 BP 125/71 03/02/20 08:03 Pulse Ox 82 L 03/02/20 08:03 Weight - Most Recent: 89.403 kg I&O - Last 24 Hours: Intake & Output 03/01/20 03/02/20 03/02/20 22:59 06:59 14:59 Intake Total 2430 800 Output Total 600 2200 Balance 1830 -1400 Lab Results Last 24 Hours: Laboratory Results - last 24 hr 03/01/20 03/02/20 03/02/20 Range/Units 04:36 05:30 05:30 WBC 6.33 (3.98-10.04) K/mm3 RBC 5.02 (3.98-5.22) M/mm3 Hgb 14.2 (11.2-15.7) gm/dl Hct 43.8 (34.1-44.9) % MCV 87.3 (79.4-94.8) fl MCH 28.3 (25.6-32.2) pg MCHC 32.4 (32.2-35.5) g/dl RDW Std Deviation 42.4 (36.4-46.3) fL Plt Count 234 (182-369) K/mm3 MPV 9.7 (9.4-12.3) fl Neut % (Auto) 85.7 H (34.0-71.1) % Lymph % (Auto) 8.7 L (19.3-51.7) % [place] % (Auto) 5.1 (4.7-12.5) % Eos % (Auto) 0 L (0.7-5.8) Baso % (Auto) 0.2 (0.1-1.2) % Neut # (Auto) 5.43 (1.56-6.13) K/mm3 Lymph # (Auto) 0.55 L (1.18-3.74) K/mm3 [place] # (Auto) 0.32 (0.24-0.36) K/mm3 Eos # (Auto) 0.00 L (0.04-0.36) K/mm3 Baso # (Auto) 0.01 (0.01-0.08) K/mm3 D-Dimer, Quantitative 1.10 H (0.19-0.50) mg/L Sodium (136-145) mEq/L Potassium (3.5-5.1) mEq/L Chloride (98-107) mEq/L Carbon Dioxide (21-32) mEq/L Anion Gap (5-15) BUN (7-18) mg/dL Creatinine (0.55-1.02) mg/dL Est Cr Clr Drug Dosing mL/min Estimated GFR (MDRD) (>60) mL/min BUN/Creatinine Ratio (14-18) Glucose (74-106) mg/dL Calcium (8.5-10.1) mg/dL Phosphorus (2.6-4.7) mg/dL Magnesium (1.8-2.4) mg/dl Total Bilirubin (0.2-1.0) mg/dL AST (15-37) U/L ALT (14-59) U/L Alkaline Phosphatase (46-116) U/L C-Reactive Protein (<1.0) mg/dL Total Protein (6.4-8.2) g/dl Albumin (3.4-5.0) g/dl Globulin gm/dL Albumin/Globulin Ratio (1-2) Procalcitonin 0.11 H (<0.10) ng/mL 03/02/20 Range/Units 05:30 WBC (3.98-10.04) K/mm3 RBC (3.98-5.22) M/mm3 Hgb (11.2-15.7) gm/dl Hct (34.1-44.9) % MCV (79.4-94.8) fl MCH (25.6-32.2) pg MCHC (32.2-35.5) g/dl RDW Std Deviation (36.4-46.3) fL Plt Count (182-369) K/mm3 MPV (9.4-12.3) fl Neut % (Auto) (34.0-71.1) % Lymph % (Auto) (19.3-51.7) % [place] % (Auto) (4.7-12.5) % Eos % (Auto) (0.7-5.8) Baso % (Auto) (0.1-1.2) % Neut # (Auto) (1.56-6.13) K/mm3 Lymph # (Auto) (1.18-3.74) K/mm3 [place] # (Auto) (0.24-0.36) K/mm3 Eos # (Auto) (0.04-0.36) K/mm3 Baso # (Auto) (0.01-0.08) K/mm3 D-Dimer, Quantitative (0.19-0.50) mg/L Sodium 135 L (136-145) mEq/L Potassium 4.2 (3.5-5.1) mEq/L Chloride 99 (98-107) mEq/L Carbon Dioxide 26 (21-32) mEq/L Anion Gap 14.2 (5-15) BUN 17 (7-18) mg/dL Creatinine 0.8 (0.55-1.02) mg/dL Est Cr Clr Drug Dosing 69.59 mL/min Estimated GFR (MDRD) > 60 (>60) mL/min BUN/Creatinine Ratio 21.3 H (14-18) Glucose 131 H (74-106) mg/dL Calcium 9.7 (8.5-10.1) mg/dL Phosphorus 4.1 (2.6-4.7) mg/dL Magnesium 2.0 (1.8-2.4) mg/dl Total Bilirubin 0.5 (0.2-1.0) mg/dL AST 33 (15-37) U/L ALT 65 H (14-59) U/L Alkaline Phosphatase 99 (46-116) U/L C-Reactive Protein 18.0 H* (<1.0) mg/dL Total Protein 8.5 H (6.4-8.2) g/dl Albumin 3.1 L (3.4-5.0) g/dl Globulin 5.4 gm/dL Albumin/Globulin Ratio 0.6 L (1-2) Procalcitonin (<0.10) ng/mL Med Orders - Current: Current Medications Acetaminophen (Tylenol) 650 mg PO Q4H PRN PRN Reason: Pain (Mild 1-3)/fever Last Admin: 03/02/20 08:16 Dose: 650 mg Documented by: Albuterol (Proventil Neb Soln) 2.5 mg NEB Q2H PRN PRN Reason: Shortness Of Breath/wheezing Last Admin: 03/02/20 04:44 Dose: 2.5 mg Documented by: Baclofen (Lioresal) 10 mg PO BID PRN PRN Reason: Pain Last Admin: 03/02/20 04:12 Dose: 10 mg Documented by: Dexamethasone (Dexamethasone) 6 mg PO Q24H [facility] Stop: 03/09/20 14:01 Last Admin: 03/01/20 15:18 Dose: 6 mg Documented by: Dicyclomine HCl (Bentyl) 10 mg PO TID PRN PRN Reason: Abdominal Pain Last Admin: 03/02/20 02:06 Dose: 10 mg Documented by: Ezetimibe (Zetia) 10 mg PO DAILY [facility] Last Admin: 03/02/20 08:10 Dose: 10 mg Documented by: Enoxaparin Sodium (Lovenox) 30 mg SUBCUT Q12H [facility] Last Admin: 03/02/20 04:13 Dose: 30 mg Documented by: Ferrous Sulfate (Ferrous Sulfate) 324 mg PO DAILY [facility] Last Admin: 03/02/20 08:09 Dose: 324 mg Documented by: Remdesivir 100 mg/ Sodium (Chloride) 100 mls @ 100 mls/hr IV Q24H [facility] Stop: 03/04/20 14:59 Last Admin: 03/01/20 14:13 Dose: 100 mls/hr Documented by: Ceftriaxone Sodium 2 gm/ (Sodium Chloride) 100 mls @ 200 mls/hr IV Q24H [facility] Stop: 03/05/20 12:29 Last Admin: 03/01/20 13:26 Dose: 200 mls/hr Documented by: Azithromycin 500 mg/ Sodium (Chloride) 250 mls @ 250 mls/hr IV Q24H [facility] Stop: 03/03/20 11:59 Last Admin: 03/01/20 11:00 Dose: 250 mls/hr Documented by: Levothyroxine Sodium (Levothyroxine) 75 mcg PO ACBREAKFAST [facility] Last Admin: 03/02/20 06:09 Dose: 75 mcg Documented by: Loratadine (Claritin) 10 mg PO DAILY [facility] Last Admin: 03/02/20 08:09 Dose: 10 mg Documented by: Magnesium Hydroxide (Milk Of Magnesia) 30 ml PO Q12H PRN PRN Reason: Constipation Montelukast Sodium (Singulair) 10 mg PO DAILY [facility] Last Admin: 03/02/20 08:09 Dose: 10 mg Documented by: Ondansetron HCl (Zofran) 4 mg IV Q4H PRN PRN Reason: Nausea/Vomiting Pramipexole Dihydrochloride (Mirapex) 0.25 mg PO BEDTIME [facility] Last Admin: 03/01/20 20:33 Dose: 0.25 mg Documented by: Simvastatin (Zocor) 10 mg PO DAILY [facility] Last Admin: 03/02/20 08:09 Dose: 10 mg Documented by: Sodium Chloride (Saline Flush) 10 ml FLUSH ASDIRECTED PRN PRN Reason: Keep Vein Open Sucralfate (Carafate) 1 gm PO TIDAC PRN PRN Reason: Abdominal Pain Last Admin: 03/02/20 04:12 Dose: 1 gm Documented by: Discontinued Medications Acetaminophen (Tylenol) 650 mg PO ONCALL ONE Stop: 02/29/20 12:39 Last Admin: 02/29/20 20:02 Dose: Not Given Documented by: Acetaminophen (Tylenol) 650 mg PO NOW ONE Stop: 02/29/20 21:06 Last Admin: 02/29/20 20:25 Dose: 650 mg Documented by: Dexamethasone (Dexamethasone) 6 mg IVPUSH ONETIME ONE Stop: 02/29/20 12:21 Last Admin: 02/29/20 13:30 Dose: 6 mg Documented by: Diphenhydramine HCl (Benadryl) 25 mg IVPUSH ONCALL ONE Stop: 02/29/20 12:39 Last Admin: 02/29/20 20:02 Dose: Not Given Documented by: Diphenhydramine HCl (Benadryl) 25 mg IVPUSH ONETIME ONE Stop: 02/29/20 21:08 Last Admin: 02/29/20 20:25 Dose: 25 mg Documented by: Enoxaparin Sodium (Lovenox) 30 mg SUBCUT Q12H [facility] Last Admin: 03/01/20 15:17 Dose: 30 mg Documented by: Sodium Chloride (Normal Saline) 100 mls @ 60 mls/hr IV ASDIRECTED [facility] Last Admin: 02/29/20 12:36 Dose: 60 mls/hr Documented by: Sodium Chloride (Normal Saline) 250 mls @ 20 mls/hr IV ASDIRECTED [facility] Remdesivir 200 mg/ Sodium (Chloride) 250 mls @ 250 mls/hr IV ONETIME ONE Stop: 02/29/20 13:47 Last Admin: 02/29/20 19:23 Dose: Not Given Documented by: Remdesivir 200 mg/ Sodium (Chloride) 250 mls @ 250 mls/hr IV ONETIME ONE Stop: 02/29/20 14:59 Last Admin: 02/29/20 16:31 Dose: 250 mls/hr Documented by: Sodium Chloride (Normal Saline) Confirm Administered Dose 250 mls @ as directed .ROUTE .STK-MED ONE Stop: 02/29/20 20:12 Last Admin: 02/29/20 21:49 Dose: 125 mls/hr Documented by: Iopamidol (Isovue-370 (76%)) 100 ml IVPUSH ONETIME ONE Stop: 02/29/20 12:35 Last Admin: 02/29/20 12:36 Dose: 68 ml Documented by: Potassium Chloride (Klor-Con M20) 40 meq PO Q4H [facility] Stop: 02/29/20 22:31 Last Admin: 02/29/20 21:41 Dose: 40 meq Documented by: Sodium Chloride (Saline Flush) 10 ml FLUSH ONETIME ONE Stop: 02/29/20 12:35 Last Admin: 02/29/20 12:36 Dose: 10 ml Documented by: - Exam Quality Assessment: Supplemental Oxygen General: Alert, Oriented HEENT: Pupils Equal, Mucous Membr. Moist/Rye Neck: Supple Lungs: No: Normal Respiratory Effort (Increased respiratory effort with tachypnea) Cardiovascular: Regular Rate, Regular Rhythm GI/Abdominal Exam: Normal Bowel Sounds, Soft, Non-Tender, No Distention Extremities: Normal Inspection, Normal Range of Motion, Non-Tender, No Pedal Edema, Normal Capillary Refill Peripheral Pulses: 2+: Posterior Tibial (L), Posterior Tibial (R), Dorsalis Pedis (L), Dorsalis Pedis (R) Skin: Warm, Dry, Intact Neurological: No New Focal Deficit Psy/Mental Status: Alert, Normal Affect, Normal Mood Sepsis Event Note - Evaluation Sepsis Screening Result: No Definite Risk - Focused Exam Vital Signs: Vital Signs Temp Pulse Resp BP Pulse Ox Pulse Ox Pulse Ox 03/02/20 08:03 97.9 F 91 25 H 125/71 82 L 03/02/20 08:00 20 91 L 03/02/20 07:00 24 H 03/02/20 06:00 26 H 03/02/20 05:00 23 H 03/02/20 04:44 91 L 03/02/20 04:21 98.2 F 78 23 H 122/91 H 86 L 03/02/20 04:00 19 92 L 03/02/20 02:09 98.1 F 80 24 H 122/73 03/01/20 22:08 92 L - Problem List & Annotations (1) COVID-19 SNOMED Code(s): 702503984 Code(s): U07.1 - COVID-19 Status: Acute Priority: High Current Visit: Yes (2) Pneumonia due to 2019 novel coronavirus SNOMED Code(s): 160265175202252658 Code(s): U07.1 - COVID-19; J12.89 - OTHER VIRAL PNEUMONIA Status: Acute Priority: High Current Visit: Yes - Problem List Review Problem List Initiated/Reviewed/Updated: Yes - Assessment Assessment:: 03/01/20 * Increased shortness of breath with activity today. * Increased oxygen need now requiring 4 L per nasal cannula * Increased crackles noted to bilateral bases * Using incentive spirometer and flutter valve * Has received 2 units of convalescent plasma * Day 2 remdesivir and dexamethasone * Chest x-ray from today reveals worsening groundglass airspace disease within the lower lung steel bilaterally since the prior examination * Vital signs otherwise stable and patient is afebrile. * Labs reveal:WBC 8.45, D-dimer 1.59 down from 2.62,Potassium 4.5 up from 3.2, BUN 16, Creatinine 0.8, GFR greater than 60, Glucose range 124-131, C-reactive protein 32.2 up from 28.4 * Procalcitonin added to today's lab work * On Lovenox for DVT prophylaxis. * donor services team leader and case case management manager * Dietitian consulting * Respiratory care to continue titrating oxygen as needed * Encouraging prone positioning. 03/02/2020 * Continuing worsening of her oxygen saturations. She increased to 6 L and now is on high flow nasal cannula. Patient does continue to have good appetite. * Labs continue to improve. WBC 6.3, D-dimer 1.1, CRP 18. * Procalcitonin was 0.11. * Started on Rocephin and azithromycin yesterday. - Plan Plan:: 02/29/20 * Tested positive for Covid on February 19. * Developed symptoms of Covid on February 20 which she describes as feeling like she has a sinus infection. However over the course of the last 8 days she has developed a persistent nonproductive cough and shortness of breath also is noticing that her taste and smell are decreasing. She denies any diarrhea stools or abdominal pain or headache or body aches. * O2 saturations in the ER were 85% on room air currently on 3 L per nasal cannula. * Initial vitals in the ER were a temp of 100.1, pulse of 116, respiratory rate of 26, blood pressure of 120/74, and O2 saturations of 85% on room air. * Lab work reveals: WBC 9.53 D-dimer 2.62 patient was sent for CTA which did not show any PEs. C-reactive protein 28.4, sodium 133, potassium 3.2, BUN 12, creatinine 0.9, GFR is greater than 60, magnesium 1.9, ferritin 687, LDH 273, BNP 148, lactic acid 1.3 * ABGs on room air reveal a pH of 7.52, PCO2 33.4, PO2 50, HCO3 26.9. * The patient did receive an IV dose of dexamethasone 6 mg in the emergency department. PLAN: * Remdesivir 200 mg IV now then 100 mg IV daily for a total of 5 days. * Potassium 40 mEq p.o. every 4 hours x3 doses * Convalescent plasma 2 units when available. I spoke with the patient to provide information about convalescent plasma for her. I offered her the fax sheet for patients and parents/caregivers for COVID-19 convalescent plasma to read and review. I stated the therapy has been approved by an emergency use authorization process and has not fully been FDA reviewed or approved. I shared potential risks from the therapy including transmission of blood-borne pathogen such as HIV and hepatitis C, allergic and transfusion related reactions, post transfusion purpura. Additionally theoretical risks including a phenomenon called antibody dependent enhancement of infection such as is seen in dengue or attenuation of an immune response that may make patients more susceptible to reinfection. I discussed that there are other potential treatment options that are currently not FDA approved to treat Covid. Offered opportunity to ask questions and all questions were answered. The patient voiced understanding and agreed to proceed with the treatment for herself. * Oxygen as needed to keep sats between 88 to 92% * Respiratory care to titrate oxygen. * Albuterol nebulizers every 2 hours as needed for shortness of breath or wheezing * Incentive spirometer and flutter valve every hour while awake * Lovenox for DVT prophylaxis * Continuous pulse oximetry * donor services team leader to consult for discharge planning. * Dietitian to consult for increased caloric needs. * Dexamethasone 6 mg daily * Patient is a full code * Repeat labs in the a.m. * Monitor daily weight and intake and output * Monitor vital signs Patient will be here at least 5 days as needed for the length of treatment for Covid. 03/01/20 * Continue remdesivir and dexamethasone * Continue incentive spirometry and flutter valve * Start Rocephin 2 g IV every 24 hours for 5 days and Zithromax 500 mg IV every 24 hours for 3 days due to worsening pneumonia on chest x-ray and increased oxygen needs. * Respiratory therapy to continue titrating oxygen * Albuterol nebulizers as needed for shortness of breath or wheezing * Lovenox for DVT prophylaxis * Continuous pulse oximetry * Continue to monitor vital signs and intakes and outputs * Repeat lab work in the a.m. 03/02/2020 * Day 3 of remdesivir and dexamethasone * Day 2 of Rocephin and azithromycin * Continue incentive spirometry and flutter valve * High flow nasal cannula to keep SPO2 between 88 and 94%. * Repeat labs in the morning. * Encourage patient prone.
[2020-03-02] MEDS: Azithromycin 500 MG in Sodium Chloride 0.9% 250 ML IV SCH (12:21)
[2020-03-02] MEDS: Baclofen 10 MG Tab PO PRN ×2 (12:29→21:49)
[2020-03-02] MEDS: Dexamethasone 4 MG Tab PO SCH (14:24)
[2020-03-02] MEDS: cefTRIAXone 2 GM in Sodium Chloride 0.9% 100 ML IV SCH (14:42)
[2020-03-02] MEDS: REMDESIVIR (EUA) 100 MG in Sodium Chloride 0.9% 100 ML IV SCH (15:41)
[2020-03-02] MEDS: Pramipexole 0.25 MG Tab PO SCH (20:06)
[2020-03-02] MEDS ORDERED: Diazepam 5 MG Tab PO PRN (21:41)
[2020-03-02] MEDS ORDERED: Pantoprazole 40 MG Tab.CR PO STA (21:48)
[2020-03-03] MEDS: Enoxaparin 30 MG/0.3 ML Syringe SUBCUT SCH ×2 (05:12→15:00)
[2020-03-03] MEDS: Levothyroxine 75 MCG Tab PO SCH (05:12)
[2020-03-03] MEDS: Pantoprazole 40 MG Tab.CR PO SCH (05:13)
[2020-03-03] MEDS: Albuterol 0.083% 2.5 MG/3 ML Neb Soln NEB PRN (05:33)
[2020-03-03] MEDS: Ezetimibe 10 MG Tab PO SCH (08:07)
[2020-03-03] MEDS: Loratadine 10 MG Tab PO SCH (08:07)
[2020-03-03] MEDS: Montelukast 10 MG Tab PO SCH (08:08)
[2020-03-03] MEDS: Simvastatin 10 MG Tab PO SCH (08:08)
[2020-03-03] MEDS: Ferrous Sulfate 324 MG Tab.EC PO SCH (08:08)
[2020-03-03] MEDS: Baclofen 10 MG Tab PO PRN ×2 (08:24→21:22)
[2020-03-03] MEDS: Azithromycin 500 MG in Sodium Chloride 0.9% 250 ML IV SCH (10:34)
[2020-03-03] MEDS: cefTRIAXone 2 GM in Sodium Chloride 0.9% 100 ML IV SCH (11:57)
[2020-03-03] MEDS: Dexamethasone 4 MG Tab PO SCH (14:59)
[2020-03-03] MEDS: REMDESIVIR (EUA) 100 MG in Sodium Chloride 0.9% 100 ML IV SCH (14:59)
[2020-03-03] MEDS: Dicyclomine 10 MG Cap PO PRN ×2 (15:11→21:22)
--- NOTE | 2020-03-03 19:10 | PCM.PN ---
- General Info Date of Service: 03/03/20 Admission Dx/Problem (Free Text): Admission Diagnosis/Problem Admission Diagnosis/Problem Hypoxia Subjective Update: Patient was placed on high flow nasal cannula overnight, but it caused abdominal pain also. Patient was found to switch herself from high flow nasal cannula to regular nasal cannula at 6 L. When she is placed on 6 L her oxygen saturations dropped into the mid to low 80s. Patient states generally she is feeling well and her appetite is good. Functional Status: Reports: Pain Controlled - Review of Systems General: Reports: No Symptoms HEENT: Reports: No Symptoms Pulmonary: Reports: Shortness of Breath, Cough Cardiovascular: Reports: No Symptoms Gastrointestinal: Reports: No Symptoms Musculoskeletal: Reports: No Symptoms Neurological: Reports: No Symptoms Psychiatric: Reports: No Symptoms - Patient Data Vitals - Most Recent: Last Vital Signs Temp 98.2 F 03/03/20 15:12 Pulse 85 03/03/20 15:12 Resp 16 03/03/20 15:12 BP 109/77 03/03/20 15:12 Pulse Ox 93 L 03/03/20 15:12 Weight - Most Recent: 89.539 kg I&O - Last 24 Hours: Intake & Output 03/03/20 03/03/20 03/03/20 06:59 14:59 22:59 Intake Total 360 1250 Output Total 550 Balance 360 700 Lab Results Last 24 Hours: Laboratory Results - last 24 hr 03/03/20 03/03/20 03/03/20 Range/Units 04:41 04:41 04:41 WBC 7.83 (3.98-10.04) K/mm3 RBC 5.10 (3.98-5.22) M/mm3 Hgb 14.3 (11.2-15.7) gm/dl Hct 44.2 (34.1-44.9) % MCV 86.7 (79.4-94.8) fl MCH 28.0 (25.6-32.2) pg MCHC 32.4 (32.2-35.5) g/dl RDW Std Deviation 41.9 (36.4-46.3) fL Plt Count 267 (182-369) K/mm3 MPV 9.8 (9.4-12.3) fl Neut % (Auto) 82.6 H (34.0-71.1) % Lymph % (Auto) 10.3 L (19.3-51.7) % [place] % (Auto) 6.6 (4.7-12.5) % Eos % (Auto) 0 L (0.7-5.8) Baso % (Auto) 0.1 (0.1-1.2) % Neut # (Auto) 6.46 H (1.56-6.13) K/mm3 Lymph # (Auto) 0.81 L (1.18-3.74) K/mm3 [place] # (Auto) 0.52 H (0.24-0.36) K/mm3 Eos # (Auto) 0.00 L (0.04-0.36) K/mm3 Baso # (Auto) 0.01 (0.01-0.08) K/mm3 Manual Slide Review Abnormal smear D-Dimer, Quantitative 0.96 H (0.19-0.50) mg/L Sodium 137 (136-145) mEq/L Potassium 4.0 (3.5-5.1) mEq/L Chloride 99 (98-107) mEq/L Carbon Dioxide 28 (21-32) mEq/L Anion Gap 14.0 (5-15) BUN 18 (7-18) mg/dL Creatinine 0.8 (0.55-1.02) mg/dL Est Cr Clr Drug Dosing 69.59 mL/min Estimated GFR (MDRD) > 60 (>60) mL/min BUN/Creatinine Ratio 22.5 H (14-18) Glucose 123 H (74-106) mg/dL Calcium 9.4 (8.5-10.1) mg/dL Phosphorus 4.3 (2.6-4.7) mg/dL Magnesium 1.9 (1.8-2.4) mg/dl Total Bilirubin 0.4 (0.2-1.0) mg/dL AST 27 (15-37) U/L ALT 51 (14-59) U/L Alkaline Phosphatase 90 (46-116) U/L C-Reactive Protein 9.1 H* (<1.0) mg/dL Total Protein 8.2 (6.4-8.2) g/dl Albumin 2.9 L (3.4-5.0) g/dl Globulin 5.3 gm/dL Albumin/Globulin Ratio 0.6 L (1-2) Med Orders - Current: Current Medications Acetaminophen (Tylenol) 650 mg PO Q4H PRN PRN Reason: Pain (Mild 1-3)/fever Last Admin: 03/02/20 20:06 Dose: 650 mg Documented by: Albuterol (Proventil Neb Soln) 2.5 mg NEB Q2H PRN PRN Reason: Shortness Of Breath/wheezing Last Admin: 03/03/20 05:33 Dose: 2.5 mg Documented by: Baclofen (Lioresal) 10 mg PO TID PRN PRN Reason: Spasms Last Admin: 03/03/20 08:24 Dose: 10 mg Documented by: Dexamethasone (Dexamethasone) 6 mg PO Q24H [facility] Stop: 03/09/20 14:01 Last Admin: 03/03/20 14:59 Dose: 6 mg Documented by: Diazepam (Valium.) 5 mg PO TID PRN PRN Reason: Muscle Spasm Dicyclomine HCl (Bentyl) 10 mg PO TID PRN PRN Reason: Abdominal Pain Last Admin: 03/03/20 15:11 Dose: 10 mg Documented by: Ezetimibe (Zetia) 10 mg PO DAILY [facility] Last Admin: 03/03/20 08:07 Dose: 10 mg Documented by: Enoxaparin Sodium (Lovenox) 30 mg SUBCUT Q12H [facility] Last Admin: 03/03/20 15:00 Dose: 30 mg Documented by: Ferrous Sulfate (Ferrous Sulfate) 324 mg PO DAILY [facility] Last Admin: 03/03/20 08:08 Dose: 324 mg Documented by: Remdesivir 100 mg/ Sodium (Chloride) 100 mls @ 100 mls/hr IV Q24H [facility] Stop: 03/04/20 14:59 Last Admin: 03/03/20 14:59 Dose: 100 mls/hr Documented by: Ceftriaxone Sodium 2 gm/ (Sodium Chloride) 100 mls @ 200 mls/hr IV Q24H [facility] Stop: 03/05/20 12:29 Last Admin: 03/03/20 11:57 Dose: 200 mls/hr Documented by: Levothyroxine Sodium (Levothyroxine) 75 mcg PO ACBREAKFAST [facility] Last Admin: 03/03/20 05:12 Dose: 75 mcg Documented by: Loratadine (Claritin) 10 mg PO DAILY [facility] Last Admin: 03/03/20 08:07 Dose: 10 mg Documented by: Magnesium Hydroxide (Milk Of Magnesia) 30 ml PO Q12H PRN PRN Reason: Constipation Montelukast Sodium (Singulair) 10 mg PO DAILY [facility] Last Admin: 03/03/20 08:08 Dose: 10 mg Documented by: Ondansetron HCl (Zofran) 4 mg IV Q4H PRN PRN Reason: Nausea/Vomiting Pantoprazole Sodium (Protonix) 40 mg PO ACBREAKFAST [facility] Last Admin: 03/03/20 05:13 Dose: 40 mg Documented by: Pramipexole Dihydrochloride (Mirapex) 0.25 mg PO BEDTIME [facility] Last Admin: 03/02/20 20:06 Dose: 0.25 mg Documented by: Simvastatin (Zocor) 10 mg PO DAILY [facility] Last Admin: 03/03/20 08:08 Dose: 10 mg Documented by: Sodium Chloride (Saline Flush) 10 ml FLUSH ASDIRECTED PRN PRN Reason: Keep Vein Open Sucralfate (Carafate) 1 gm PO TIDAC PRN PRN Reason: Abdominal Pain Last Admin: 03/02/20 04:12 Dose: 1 gm Documented by: Discontinued Medications Acetaminophen (Tylenol) 650 mg PO ONCALL ONE Stop: 02/29/20 12:39 Last Admin: 02/29/20 20:02 Dose: Not Given Documented by: Acetaminophen (Tylenol) 650 mg PO NOW ONE Stop: 02/29/20 21:06 Last Admin: 02/29/20 20:25 Dose: 650 mg Documented by: Baclofen (Lioresal) 10 mg PO BID PRN PRN Reason: Pain Last Admin: 03/02/20 04:12 Dose: 10 mg Documented by: Dexamethasone (Dexamethasone) 6 mg IVPUSH ONETIME ONE Stop: 02/29/20 12:21 Last Admin: 02/29/20 13:30 Dose: 6 mg Documented by: Diphenhydramine HCl (Benadryl) 25 mg IVPUSH ONCALL ONE Stop: 02/29/20 12:39 Last Admin: 02/29/20 20:02 Dose: Not Given Documented by: Diphenhydramine HCl (Benadryl) 25 mg IVPUSH ONETIME ONE Stop: 02/29/20 21:08 Last Admin: 02/29/20 20:25 Dose: 25 mg Documented by: Enoxaparin Sodium (Lovenox) 30 mg SUBCUT Q12H [facility] Last Admin: 03/01/20 15:17 Dose: 30 mg Documented by: Sodium Chloride (Normal Saline) 100 mls @ 60 mls/hr IV ASDIRECTED [facility] Last Admin: 02/29/20 12:36 Dose: 60 mls/hr Documented by: Sodium Chloride (Normal Saline) 250 mls @ 20 mls/hr IV ASDIRECTED [facility] Remdesivir 200 mg/ Sodium (Chloride) 250 mls @ 250 mls/hr IV ONETIME ONE Stop: 02/29/20 13:47 Last Admin: 02/29/20 19:23 Dose: Not Given Documented by: Remdesivir 200 mg/ Sodium (Chloride) 250 mls @ 250 mls/hr IV ONETIME ONE Stop: 02/29/20 14:59 Last Admin: 02/29/20 16:31 Dose: 250 mls/hr Documented by: Sodium Chloride (Normal Saline) Confirm Administered Dose 250 mls @ as directed .ROUTE .STK-MED ONE Stop: 02/29/20 20:12 Last Admin: 02/29/20 21:49 Dose: 125 mls/hr Documented by: Azithromycin 500 mg/ Sodium (Chloride) 250 mls @ 250 mls/hr IV Q24H [facility] Stop: 03/03/20 11:59 Last Admin: 03/03/20 10:34 Dose: 250 mls/hr Documented by: Iopamidol (Isovue-370 (76%)) 100 ml IVPUSH ONETIME ONE Stop: 02/29/20 12:35 Last Admin: 02/29/20 12:36 Dose: 68 ml Documented by: Pantoprazole Sodium (Protonix) 40 mg PO NOW STA Stop: 03/02/20 21:49 Last Admin: 03/02/20 22:33 Dose: 40 mg Documented by: Potassium Chloride (Klor-Con M20) 40 meq PO Q4H [facility] Stop: 02/29/20 22:31 Last Admin: 02/29/20 21:41 Dose: 40 meq Documented by: Sodium Chloride (Saline Flush) 10 ml FLUSH ONETIME ONE Stop: 02/29/20 12:35 Last Admin: 02/29/20 12:36 Dose: 10 ml Documented by: - Exam Quality Assessment: Supplemental Oxygen General: Alert, Oriented HEENT: Pupils Equal, Mucous Membr. Moist/[place] Neck: Supple Lungs: Rales (Bibasilar). No: Normal Respiratory Effort (Increased respiratory effort and rate) Cardiovascular: Regular Rate, Regular Rhythm GI/Abdominal Exam: Normal Bowel Sounds, Soft, Non-Tender, No Distention, No Abnormal Bruit Extremities: Normal Inspection, Normal Range of Motion, Non-Tender, No Pedal Edema, Normal Capillary Refill Skin: Warm, Dry, Intact Psy/Mental Status: Alert, Normal Affect, Normal Mood Sepsis Event Note - Evaluation Sepsis Screening Result: No Definite Risk - Focused Exam Vital Signs: Vital Signs Temp Pulse Resp BP Pulse Ox 03/03/20 15:12 98.2 F 85 16 109/77 93 L 03/03/20 12:00 93 L 03/03/20 11:53 98.2 F 85 23 H 117/73 91 L 03/03/20 08:05 98.1 F 86 16 109/74 83 L 03/03/20 08:00 85 L - Problem List & Annotations (1) COVID-19 SNOMED Code(s): 184878602 Code(s): U07.1 - COVID-19 Status: Acute Priority: High Current Visit: Yes (2) Pneumonia due to 2019 novel coronavirus SNOMED Code(s): 748756160127246225 Code(s): U07.1 - COVID-19; J12.89 - OTHER VIRAL PNEUMONIA Status: Acute Priority: High Current Visit: Yes - Problem List Review Problem List Initiated/Reviewed/Updated: Yes - My Orders Last 24 Hours: My Active Orders 03/02/20 21:41 diazePAM [Valium.] 5 mg PO TID PRN 03/03/20 06:00 Pantoprazole [ProTONIX] 40 mg PO ACBREAKFAST - Assessment Assessment:: 03/01/20 * Increased shortness of breath with activity today. * Increased oxygen need now requiring 4 L per nasal cannula * Increased crackles noted to bilateral bases * Using incentive spirometer and flutter valve * Has received 2 units of convalescent plasma * Day 2 remdesivir and dexamethasone * Chest x-ray from today reveals worsening groundglass airspace disease within the lower lung steel bilaterally since the prior examination * Vital signs otherwise stable and patient is afebrile. * Labs reveal:WBC 8.45, D-dimer 1.59 down from 2.62,Potassium 4.5 up from 3.2, BUN 16, Creatinine 0.8, GFR greater than 60, Glucose range 124-131, C-reactive protein 32.2 up from 28.4 * Procalcitonin added to today's lab work * On Lovenox for DVT prophylaxis. * enrollment services vice president and case utilization management rn * Dietitian consulting * Respiratory care to continue titrating oxygen as needed * Encouraging prone positioning. 03/02/2020 * Continuing worsening of her oxygen saturations. She increased to 6 L and now is on high flow nasal cannula. Patient does continue to have good appetite. * Labs continue to improve. WBC 6.3, D-dimer 1.1, CRP 18. * Procalcitonin was 0.11. * Started on Rocephin and azithromycin yesterday. 03/03/2020 * Patient does not tolerate high flow nasal cannula or CPAP. * Switch to simple mask at 12 L with good oxygenation and tolerance * Continue to encourage proning, incentive spirometer, flutter valve * Labs continue to improve. Normal white count, decreasing D-dimer of 0.96, CRP significantly reduced to 9.1. Albumin has also slightly dropped at 2.9. - Plan Plan:: 02/29/20 * Tested positive for Covid on February 19. * Developed symptoms of Covid on February 20 which she describes as feeling like she has a sinus infection. However over the course of the last 8 days she has developed a persistent nonproductive cough and shortness of breath also is noticing that her taste and smell are decreasing. She denies any diarrhea stools or abdominal pain or headache or body aches. * O2 saturations in the ER were 85% on room air currently on 3 L per nasal cannula. * Initial vitals in the ER were a temp of 100.1, pulse of 116, respiratory rate of 26, blood pressure of 120/74, and O2 saturations of 85% on room air. * Lab work reveals: WBC 9.53 D-dimer 2.62 patient was sent for CTA which did not show any PEs. C-reactive protein 28.4, sodium 133, potassium 3.2, BUN 12, creatinine 0.9, GFR is greater than 60, magnesium 1.9, ferritin 687, LDH 273, BNP 148, lactic acid 1.3 * ABGs on room air reveal a pH of 7.52, PCO2 33.4, PO2 50, HCO3 26.9. * The patient did receive an IV dose of dexamethasone 6 mg in the emergency department. PLAN: * Remdesivir 200 mg IV now then 100 mg IV daily for a total of 5 days. * Potassium 40 mEq p.o. every 4 hours x3 doses * Convalescent plasma 2 units when available. I spoke with the patient to provide information about convalescent plasma for her. I offered her the fax sheet for patients and parents/caregivers for COVID-19 convalescent plasma to read and review. I stated the therapy has been approved by an emergency use authorization process and has not fully been FDA reviewed or approved. I shared potential risks from the therapy including transmission of blood-borne pathogen such as HIV and hepatitis C, allergic and transfusion related reactions, post transfusion purpura. Additionally theoretical risks including a phenomenon called antibody dependent enhancement of infection such as is seen in dengue or attenuation of an immune response that may make patients more susceptible to reinfection. I discussed that there are other potential treatment options that are currently not FDA approved to treat Covid. Offered opportunity to ask questions and all questions were answered. The patient voiced understanding and agreed to proceed with the treatment for herself. * Oxygen as needed to keep sats between 88 to 92% * Respiratory care to titrate oxygen. * Albuterol nebulizers every 2 hours as needed for shortness of breath or wheezing * Incentive spirometer and flutter valve every hour while awake * Lovenox for DVT prophylaxis * Continuous pulse oximetry * enrollment services vice president to consult for discharge planning. * Dietitian to consult for increased caloric needs. * Dexamethasone 6 mg daily * Patient is a full code * Repeat labs in the a.m. * Monitor daily weight and intake and output * Monitor vital signs Patient will be here at least 5 days as needed for the length of treatment for Covid. 03/01/20 * Continue remdesivir and dexamethasone * Continue incentive spirometry and flutter valve * Start Rocephin 2 g IV every 24 hours for 5 days and Zithromax 500 mg IV every 24 hours for 3 days due to worsening pneumonia on chest x-ray and increased oxygen needs. * Respiratory therapy to continue titrating oxygen * Albuterol nebulizers as needed for shortness of breath or wheezing * Lovenox for DVT prophylaxis * Continuous pulse oximetry * Continue to monitor vital signs and intakes and outputs * Repeat lab work in the a.m. 03/02/2020 * Day 3 of remdesivir and dexamethasone * Day 2 of Rocephin and azithromycin * Continue incentive spirometry and flutter valve * High flow nasal cannula to keep SPO2 between 88 and 94%. * Repeat labs in the morning. * Encourage patient prone. 03/03/2020 * Day 4 of remdesivir and dexamethasone * Day 3 of Rocephin and azithromycin * CBC, CMP, mag, Phos in the morning * Continue simple mask. If she requires high flow we will have to come up with some alternative. * Continue to encourage lying prone, incentive spirometer, and flutter valve.
[2020-03-03] MEDS: Pramipexole 0.25 MG Tab PO SCH (21:21)
[2020-03-04] MEDS: Levothyroxine 75 MCG Tab PO SCH ×2 (04:53→06:01)
[2020-03-04] MEDS: Enoxaparin 30 MG/0.3 ML Syringe SUBCUT SCH ×2 (04:53→17:45)
[2020-03-04] MEDS: Pantoprazole 40 MG Tab.CR PO SCH ×2 (04:53→06:02)
[2020-03-04] MEDS: Albuterol 6.7 GM Inhaler INH PRN ×3 (08:10→21:49)
[2020-03-04] MEDS: Baclofen 10 MG Tab PO PRN ×2 (08:19→21:35)
[2020-03-04] MEDS: Ezetimibe 10 MG Tab PO SCH (08:19)
[2020-03-04] MEDS: Loratadine 10 MG Tab PO SCH (08:19)
[2020-03-04] MEDS: Montelukast 10 MG Tab PO SCH (08:19)
[2020-03-04] MEDS: Simvastatin 10 MG Tab PO SCH (08:19)
[2020-03-04] MEDS: Ferrous Sulfate 324 MG Tab.EC PO SCH (08:19)
--- NOTE | 2020-03-04 12:28 | PCM.PN ---
- General Info Date of Service: 03/04/20 Admission Dx/Problem (Free Text): Admission Diagnosis/Problem Admission Diagnosis/Problem Hypoxia Subjective Update: Patient reports that she is feeling much better than she did over the weekend. She states that she really does not have any shortness of breath when she is up independently in her room. She does remain on 12 L per simple mask as she is not able to tolerate a nasal cannula, high flow O2, or her CPAP as she states it gives her stomach upset. Functional Status: Reports: Pain Controlled, Tolerating Diet, Ambulating, Urinating, Incentive Spirometry - Review of Systems General: Reports: No Symptoms HEENT: Reports: No Symptoms, Glasses Pulmonary: Reports: Cough, Sputum (Scant). Denies: Shortness of Breath Cardiovascular: Reports: No Symptoms Gastrointestinal: Reports: No Symptoms Genitourinary: Reports: No Symptoms Musculoskeletal: Reports: No Symptoms Skin: Reports: No Symptoms Neurological: Reports: No Symptoms Psychiatric: Reports: No Symptoms - Patient Data Vitals - Most Recent: Last Vital Signs Temp 98.1 F 03/04/20 04:51 Pulse 100 03/04/20 08:25 Resp 20 03/04/20 08:25 BP 132/71 03/04/20 08:25 Pulse Ox 92 L 03/04/20 08:10 Weight - Most Recent: 197 lb 9.6 oz I&O - Last 24 Hours: Intake & Output 03/03/20 03/04/20 03/04/20 22:59 06:59 14:59 Intake Total 1250 800 180 Output Total 550 1650 Balance 700 -850 180 Lab Results Last 24 Hours: Laboratory Results - last 24 hr 03/04/20 03/04/20 03/04/20 Range/Units 05:42 05:42 05:42 WBC 8.18 (3.98-10.04) K/mm3 RBC 4.97 (3.98-5.22) M/mm3 Hgb 14.0 (11.2-15.7) gm/dl Hct 43.3 (34.1-44.9) % MCV 87.1 (79.4-94.8) fl MCH 28.2 (25.6-32.2) pg MCHC 32.3 (32.2-35.5) g/dl RDW Std Deviation 41.4 (36.4-46.3) fL Plt Count 288 (182-369) K/mm3 MPV 9.7 (9.4-12.3) fl Neut % (Auto) 81.0 H (34.0-71.1) % Lymph % (Auto) 9.7 L (19.3-51.7) % Christian % (Auto) 8.6 (4.7-12.5) % Eos % (Auto) 0 L (0.7-5.8) Baso % (Auto) 0.2 (0.1-1.2) % Neut # (Auto) 6.63 H (1.56-6.13) K/mm3 Lymph # (Auto) 0.79 L (1.18-3.74) K/mm3 Christian # (Auto) 0.70 H (0.24-0.36) K/mm3 Eos # (Auto) 0.00 L (0.04-0.36) K/mm3 Baso # (Auto) 0.02 (0.01-0.08) K/mm3 Manual Slide Review Abnormal smear D-Dimer, Quantitative 1.08 H (0.19-0.50) mg/L Sodium 134 L (136-145) mEq/L Potassium 3.8 (3.5-5.1) mEq/L Chloride 99 (98-107) mEq/L Carbon Dioxide 27 (21-32) mEq/L Anion Gap 11.8 (5-15) BUN 17 (7-18) mg/dL Creatinine 0.7 (0.55-1.02) mg/dL Est Cr Clr Drug Dosing 79.54 mL/min Estimated GFR (MDRD) > 60 (>60) mL/min BUN/Creatinine Ratio 24.3 H (14-18) Glucose 124 H (74-106) mg/dL Calcium 9.1 (8.5-10.1) mg/dL Phosphorus 3.5 (2.6-4.7) mg/dL Magnesium 2.1 (1.8-2.4) mg/dl Total Bilirubin 0.4 (0.2-1.0) mg/dL AST 31 (15-37) U/L ALT 68 H (14-59) U/L Alkaline Phosphatase 88 (46-116) U/L C-Reactive Protein 4.8 H* (<1.0) mg/dL Total Protein 7.8 (6.4-8.2) g/dl Albumin 2.9 L (3.4-5.0) g/dl Globulin 4.9 gm/dL Albumin/Globulin Ratio 0.6 L (1-2) Med Orders - Current: Current Medications Acetaminophen (Tylenol) 650 mg PO Q4H PRN PRN Reason: Pain (Mild 1-3)/fever Last Admin: 03/02/20 20:06 Dose: 650 mg Documented by: Albuterol (Proventil Neb Soln) 2.5 mg NEB Q2H PRN PRN Reason: Shortness Of Breath/wheezing Last Admin: 03/03/20 05:33 Dose: 2.5 mg Documented by: Albuterol (Proventil Hfa) 0 gm INH Q2H PRN PRN Reason: SOB/WHEEZE Last Admin: 03/04/20 08:10 Dose: 2 puff Documented by: Baclofen (Lioresal) 10 mg PO TID PRN PRN Reason: Spasms Last Admin: 03/04/20 08:19 Dose: 10 mg Documented by: Dexamethasone (Dexamethasone) 6 mg PO Q24H [facility] Stop: 03/09/20 14:01 Last Admin: 03/03/20 14:59 Dose: 6 mg Documented by: Diazepam (Valium.) 5 mg PO TID PRN PRN Reason: Muscle Spasm Dicyclomine HCl (Bentyl) 10 mg PO TID PRN PRN Reason: Abdominal Pain Last Admin: 03/03/20 21:22 Dose: 10 mg Documented by: Ezetimibe (Zetia) 10 mg PO DAILY [facility] Last Admin: 03/04/20 08:19 Dose: 10 mg Documented by: Enoxaparin Sodium (Lovenox) 30 mg SUBCUT Q12H [facility] Last Admin: 03/04/20 04:53 Dose: 30 mg Documented by: Ferrous Sulfate (Ferrous Sulfate) 324 mg PO DAILY [facility] Last Admin: 03/04/20 08:19 Dose: 324 mg Documented by: Remdesivir 100 mg/ Sodium (Chloride) 100 mls @ 100 mls/hr IV Q24H [facility] Stop: 03/04/20 14:59 Last Admin: 03/03/20 14:59 Dose: 100 mls/hr Documented by: Ceftriaxone Sodium 2 gm/ (Sodium Chloride) 100 mls @ 200 mls/hr IV Q24H [facility] Stop: 03/05/20 12:29 Last Admin: 03/03/20 11:57 Dose: 200 mls/hr Documented by: Levothyroxine Sodium (Levothyroxine) 75 mcg PO ACBREAKFAST [facility] Last Admin: 03/04/20 06:01 Dose: Not Given Documented by: Loratadine (Claritin) 10 mg PO DAILY [facility] Last Admin: 03/04/20 08:19 Dose: 10 mg Documented by: Magnesium Hydroxide (Milk Of Magnesia) 30 ml PO Q12H PRN PRN Reason: Constipation Montelukast Sodium (Singulair) 10 mg PO DAILY [facility] Last Admin: 03/04/20 08:19 Dose: 10 mg Documented by: Ondansetron HCl (Zofran) 4 mg IV Q4H PRN PRN Reason: Nausea/Vomiting Pantoprazole Sodium (Protonix) 40 mg PO ACBREAKFAST [facility] Last Admin: 03/04/20 06:02 Dose: Not Given Documented by: Pramipexole Dihydrochloride (Mirapex) 0.25 mg PO BEDTIME [facility] Last Admin: 03/03/20 21:21 Dose: 0.25 mg Documented by: Simvastatin (Zocor) 10 mg PO DAILY [facility] Last Admin: 03/04/20 08:19 Dose: 10 mg Documented by: Sodium Chloride (Saline Flush) 10 ml FLUSH ASDIRECTED PRN PRN Reason: Keep Vein Open Sucralfate (Carafate) 1 gm PO TIDAC PRN PRN Reason: Abdominal Pain Last Admin: 03/02/20 04:12 Dose: 1 gm Documented by: Discontinued Medications Acetaminophen (Tylenol) 650 mg PO ONCALL ONE Stop: 02/29/20 12:39 Last Admin: 02/29/20 20:02 Dose: Not Given Documented by: Acetaminophen (Tylenol) 650 mg PO NOW ONE Stop: 02/29/20 21:06 Last Admin: 02/29/20 20:25 Dose: 650 mg Documented by: Baclofen (Lioresal) 10 mg PO BID PRN PRN Reason: Pain Last Admin: 03/02/20 04:12 Dose: 10 mg Documented by: Dexamethasone (Dexamethasone) 6 mg IVPUSH ONETIME ONE Stop: 02/29/20 12:21 Last Admin: 02/29/20 13:30 Dose: 6 mg Documented by: Diphenhydramine HCl (Benadryl) 25 mg IVPUSH ONCALL ONE Stop: 02/29/20 12:39 Last Admin: 02/29/20 20:02 Dose: Not Given Documented by: Diphenhydramine HCl (Benadryl) 25 mg IVPUSH ONETIME ONE Stop: 02/29/20 21:08 Last Admin: 02/29/20 20:25 Dose: 25 mg Documented by: Enoxaparin Sodium (Lovenox) 30 mg SUBCUT Q12H [facility] Last Admin: 03/01/20 15:17 Dose: 30 mg Documented by: Sodium Chloride (Normal Saline) 100 mls @ 60 mls/hr IV ASDIRECTED GURMEET Last Admin: 02/29/20 12:36 Dose: 60 mls/hr Documented by: Sodium Chloride (Normal Saline) 250 mls @ 20 mls/hr IV ASDIRECTED GURMEET Remdesivir 200 mg/ Sodium (Chloride) 250 mls @ 250 mls/hr IV ONETIME ONE Stop: 02/29/20 13:47 Last Admin: 02/29/20 19:23 Dose: Not Given Documented by: Remdesivir 200 mg/ Sodium (Chloride) 250 mls @ 250 mls/hr IV ONETIME ONE Stop: 02/29/20 14:59 Last Admin: 02/29/20 16:31 Dose: 250 mls/hr Documented by: Sodium Chloride (Normal Saline) Confirm Administered Dose 250 mls @ as directed .ROUTE .STK-MED ONE Stop: 02/29/20 20:12 Last Admin: 02/29/20 21:49 Dose: 125 mls/hr Documented by: Azithromycin 500 mg/ Sodium (Chloride) 250 mls @ 250 mls/hr IV Q24H [facility] Stop: 03/03/20 11:59 Last Admin: 03/03/20 10:34 Dose: 250 mls/hr Documented by: Iopamidol (Isovue-370 (76%)) 100 ml IVPUSH ONETIME ONE Stop: 02/29/20 12:35 Last Admin: 02/29/20 12:36 Dose: 68 ml Documented by: Pantoprazole Sodium (Protonix) 40 mg PO NOW STA Stop: 03/02/20 21:49 Last Admin: 03/02/20 22:33 Dose: 40 mg Documented by: Potassium Chloride (Klor-Con M20) 40 meq PO Q4H [facility] Stop: 02/29/20 22:31 Last Admin: 02/29/20 21:41 Dose: 40 meq Documented by: Sodium Chloride (Saline Flush) 10 ml FLUSH ONETIME ONE Stop: 02/29/20 12:35 Last Admin: 02/29/20 12:36 Dose: 10 ml Documented by: - Exam Quality Assessment: Supplemental Oxygen (12 L per simple mask.), DVT Prophylaxis (Lovenox) General: Alert, Oriented, Cooperative, Mild Distress HEENT: Pupils Equal, Pupils Reactive, Mucous Membr. Moist/[place] Neck: Supple, Trachea Midline. No: Lymphadenopathy Lungs: Clear to Auscultation, Normal Respiratory Effort Cardiovascular: Regular Rate, Regular Rhythm, No Murmurs GI/Abdominal Exam: Normal Bowel Sounds, Soft, Non-Tender, No Distention (Female) Exam: Deferred Back Exam: Normal Inspection, Full Range of Motion Extremities: Normal Inspection, Normal Range of Motion, Non-Tender, No Pedal Ed brandin, Normal Capillary Refill Peripheral Pulses: 2+: Radial (L), Radial (R), Dorsalis Pedis (L), Dorsalis Pedis (R) Skin: Warm, Dry, Intact Neurological: No New Focal Deficit Psy/Mental Status: Alert, Normal Affect, Normal Mood Sepsis Event Note - Evaluation Sepsis Screening Result: No Definite Risk - Focused Exam Vital Signs: Vital Signs Temp Pulse Resp BP Pulse Ox Pulse Ox 03/04/20 08:25 100 20 132/71 03/04/20 08:10 92 L 03/04/20 04:55 92 L 03/04/20 04:51 98.1 F 82 20 130/73 88 L 03/04/20 01:45 97.9 F 76 22 H 105/58 L 93 L - Problem List & Annotations (1) COVID-19 SNOMED Code(s): 582531168 Code(s): U07.1 - COVID-19 Status: Acute Priority: High Current Visit: Yes (2) Hypoxia SNOMED Code(s): 305548489 Code(s): R09.02 - HYPOXEMIA Status: Acute Priority: High Current Visit: Yes (3) Pneumonia due to 2019 novel coronavirus SNOMED Code(s): 188107580618919123 Code(s): U07.1 - COVID-19; J12.89 - OTHER VIRAL PNEUMONIA Status: Acute Priority: High Current Visit: Yes - Problem List Review Problem List Initiated/Reviewed/Updated: Yes - My Orders Last 24 Hours: My Active Orders 03/05/20 05:11 C-REACTIVE PROTEIN [CHEM] AM CBC WITH AUTO DIFF [HEME] AM COMPREHENSIVE METABOLIC PN,CMP [CHEM] AM D-DIMER QUANTITATIVE [COAG] AM MAGNESIUM [CHEM] AM PHOSPHORUS [CHEM] AM - Assessment Assessment:: 03/01/20 * Increased shortness of breath with activity today. * Increased oxygen need now requiring 4 L per nasal cannula * Increased crackles noted to bilateral bases * Using incentive spirometer and flutter valve * Has received 2 units of convalescent plasma * Day 2 remdesivir and dexamethasone * Chest x-ray from today reveals worsening groundglass airspace disease within the lower lung steel bilaterally since the prior examination * Vital signs otherwise stable and patient is afebrile. * Labs reveal:WBC 8.45, D-dimer 1.59 down from 2.62,Potassium 4.5 up from 3.2, BUN 16, Creatinine 0.8, GFR greater than 60, Glucose range 124-131, C-reactive protein 32.2 up from 28.4 * Procalcitonin added to today's lab work * On Lovenox for DVT prophylaxis. * fiscal services manager and case store management trainee * Dietitian consulting * Respiratory care to continue titrating oxygen as needed * Encouraging prone positioning. 03/02/2020 * Continuing worsening of her oxygen saturations. She increased to 6 L and now is on high flow nasal cannula. Patient does continue to have good appetite. * Labs continue to improve. WBC 6.3, D-dimer 1.1, CRP 18. * Procalcitonin was 0.11. * Started on Rocephin and azithromycin yesterday. 03/03/2020 * Patient does not tolerate high flow nasal cannula or CPAP. * Switch to simple mask at 12 L with good oxygenation and tolerance * Continue to encourage proning, incentive spirometer, flutter valve * Labs continue to improve. Normal white count, decreasing D-dimer of 0.96, CRP significantly reduced to 9.1. Albumin has also slightly dropped at 2.9. 03/04/20 * Currently on 12 L of oxygen per simple mask. Respiratory the nursing staff continues to titrate this. * Day 4 of Rocephin. * Day 5 of dexamethasone and remdesivir. * Vital signs remained stable otherwise and she has been afebrile in the past 24 hours. * D-dimer 1.08 that is up from 0.96, C-reactive protein 4.8 which is down from 9.1. Labs are otherwise unremarkable. * She is tolerating her diet eating 100% of her meals. * Continue to encourage prone positioning, incentive spirometer, and flutter valve. * Lovenox for DVT prophylaxis. - Plan Plan:: 02/29/20 * Tested positive for Covid on February 19. * Developed symptoms of Covid on February 20 which she describes as feeling like she has a sinus infection. However over the course of the last 8 days she has developed a persistent nonproductive cough and shortness of breath also is noticing that her taste and smell are decreasing. She denies any diarrhea stools or abdominal pain or headache or body aches. * O2 saturations in the ER were 85% on room air currently on 3 L per nasal cannula. * Initial vitals in the ER were a temp of 100.1, pulse of 116, respiratory rate of 26, blood pressure of 120/74, and O2 saturations of 85% on room air. * Lab work reveals: WBC 9.53 D-dimer 2.62 patient was sent for CTA which did not show any PEs. C-reactive protein 28.4, sodium 133, potassium 3.2, BUN 12, creatinine 0.9, GFR is greater than 60, magnesium 1.9, ferritin 687, LDH 273, BNP 148, lactic acid 1.3 * ABGs on room air reveal a pH of 7.52, PCO2 33.4, PO2 50, HCO3 26.9. * The patient did receive an IV dose of dexamethasone 6 mg in the emergency department. PLAN: * Remdesivir 200 mg IV now then 100 mg IV daily for a total of 5 days. * Potassium 40 mEq p.o. every 4 hours x3 doses * Convalescent plasma 2 units when available. I spoke with the patient to provide information about convalescent plasma for her. I offered her the fax sheet for patients and parents/caregivers for COVID-19 convalescent plasma to read and review. I stated the therapy has been approved by an emergency use authorization process and has not fully been FDA reviewed or approved. I shared potential risks from the therapy including transmission of blood-borne pathogen such as HIV and hepatitis C, allergic and transfusion related reactions, post transfusion purpura. Additionally theoretical risks including a phenomenon called antibody dependent enhancement of infection such as is seen in dengue or attenuation of an immune response that may make patients more susceptible to reinfection. I discussed that there are other potential treatment options that are currently not FDA approved to treat Covid. Offered opportunity to ask questions and all questions were answered. The patient voiced understanding and agreed to proceed with the treatment for herself. * Oxygen as needed to keep sats between 88 to 92% * Respiratory care to titrate oxygen. * Albuterol nebulizers every 2 hours as needed for shortness of breath or wheezing * Incentive spirometer and flutter valve every hour while awake * Lovenox for DVT prophylaxis * Continuous pulse oximetry * fiscal services manager to consult for discharge planning. * Dietitian to consult for increased caloric needs. * Dexamethasone 6 mg daily * Patient is a full code * Repeat labs in the a.m. * Monitor daily weight and intake and output * Monitor vital signs Patient will be here at least 5 days as needed for the length of treatment for Covid. 03/01/20 * Continue remdesivir and dexamethasone * Continue incentive spirometry and flutter valve * Start Rocephin 2 g IV every 24 hours for 5 days and Zithromax 500 mg IV every 24 hours for 3 days due to worsening pneumonia on chest x-ray and increased oxygen needs. * Respiratory therapy to continue titrating oxygen * Albuterol nebulizers as needed for shortness of breath or wheezing * Lovenox for DVT prophylaxis * Continuous pulse oximetry * Continue to monitor vital signs and intakes and outputs * Repeat lab work in the a.m. 03/02/2020 * Day 3 of remdesivir and dexamethasone * Day 2 of Rocephin and azithromycin * Continue incentive spirometry and flutter valve * High flow nasal cannula to keep SPO2 between 88 and 94%. * Repeat labs in the morning. * Encourage patient prone. 03/03/2020 * Day 4 of remdesivir and dexamethasone * Day 3 of Rocephin and azithromycin * CBC, CMP, mag, Phos in the morning * Continue simple mask. If she requires high flow we will have to come up with some alternative. * Continue to encourage lying prone, incentive spirometer, and flutter valve. 03/04/20 * Continue to titrate O2 * Continue incentive spirometer and flutter valve * Lovenox for DVT prophylaxis * Continuous pulse oximetry * Continue to monitor vital signs and intake and output * Repeat labs in the a.m. and correct electrolyte abnormalities as needed. * Will likely be here at least a couple more days due to high oxygen needs at this time.
[2020-03-04] MEDS: REMDESIVIR (EUA) 100 MG in Sodium Chloride 0.9% 100 ML IV SCH (13:39)
[2020-03-04] MEDS: cefTRIAXone 2 GM in Sodium Chloride 0.9% 100 ML IV SCH (13:39)
[2020-03-04] MEDS: Dexamethasone 4 MG Tab PO SCH (13:40)
[2020-03-04] MEDS: Dicyclomine 10 MG Cap PO PRN (21:35)
[2020-03-04] MEDS: Pramipexole 0.25 MG Tab PO SCH (21:35)
[2020-03-05] MEDS: Pantoprazole 40 MG Tab.CR PO SCH (05:22)
[2020-03-05] MEDS: Enoxaparin 30 MG/0.3 ML Syringe SUBCUT SCH ×2 (05:22→18:20)
[2020-03-05] MEDS: Levothyroxine 75 MCG Tab PO SCH (05:22)
[2020-03-05] MEDS: Albuterol 6.7 GM Inhaler INH PRN ×4 (06:34→15:48)
[2020-03-05] MEDS: Ferrous Sulfate 324 MG Tab.EC PO SCH (09:02)
[2020-03-05] MEDS: Montelukast 10 MG Tab PO SCH (09:02)
[2020-03-05] MEDS: Loratadine 10 MG Tab PO SCH (09:02)
[2020-03-05] MEDS: Simvastatin 10 MG Tab PO SCH (09:02)
[2020-03-05] MEDS: Ezetimibe 10 MG Tab PO SCH (09:03)
[2020-03-05] MEDS: cefTRIAXone 2 GM in Sodium Chloride 0.9% 100 ML IV SCH (11:28)
[2020-03-05] MEDS: Dicyclomine 10 MG Cap PO PRN ×2 (13:34→21:57)
[2020-03-05] MEDS: Baclofen 10 MG Tab PO PRN ×2 (13:35→21:57)
[2020-03-05] MEDS: Dexamethasone 4 MG Tab PO SCH (13:35)
--- NOTE | 2020-03-05 14:56 | PCM.PN ---
- General Info Date of Service: 03/05/20 Admission Dx/Problem (Free Text): Admission Diagnosis/Problem Admission Diagnosis/Problem Hypoxia Subjective Update: States that she is feeling well today, however she is still on 12 L of oxygen per simple mask. Functional Status: Reports: Pain Controlled, Tolerating Diet, Ambulating, Urinating, Incentive Spirometry - Review of Systems General: Reports: No Symptoms HEENT: Reports: Glasses Pulmonary: Reports: Cough. Denies: Sputum, Wheezing Cardiovascular: Reports: No Symptoms Gastrointestinal: Reports: No Symptoms Genitourinary: Reports: No Symptoms Musculoskeletal: Reports: No Symptoms Skin: Reports: No Symptoms Neurological: Reports: No Symptoms Psychiatric: Reports: No Symptoms - Patient Data Vitals - Most Recent: Last Vital Signs Temp 98.2 F 03/05/20 11:28 Pulse 90 03/05/20 11:28 Resp 18 03/05/20 11:28 BP 120/62 03/05/20 11:28 Pulse Ox 91 L 03/05/20 13:00 Weight - Most Recent: 197 lb 9.6 oz I&O - Last 24 Hours: Intake & Output 03/04/20 03/05/20 03/05/20 22:59 06:59 14:59 Intake Total 2220 500 480 Output Total 1750 Balance 2220 -1250 480 Lab Results Last 24 Hours: Laboratory Results - last 24 hr 03/05/20 03/05/20 03/05/20 Range/Units 05:04 05:04 05:04 WBC 8.86 (3.98-10.04) K/mm3 RBC 5.02 (3.98-5.22) M/mm3 Hgb 14.0 (11.2-15.7) gm/dl Hct 43.7 (34.1-44.9) % MCV 87.1 (79.4-94.8) fl MCH 27.9 (25.6-32.2) pg MCHC 32.0 L (32.2-35.5) g/dl RDW Std Deviation 40.8 (36.4-46.3) fL Plt Count 287 (182-369) K/mm3 MPV 9.9 (9.4-12.3) fl Neut % (Auto) 79.6 H (34.0-71.1) % Lymph % (Auto) 10.9 L (19.3-51.7) % [place] % (Auto) 8.4 (4.7-12.5) % Eos % (Auto) 0.1 L (0.7-5.8) Baso % (Auto) 0.2 (0.1-1.2) % Neut # (Auto) 7.05 H (1.56-6.13) K/mm3 Lymph # (Auto) 0.97 L (1.18-3.74) K/mm3 [place] # (Auto) 0.74 H (0.24-0.36) K/mm3 Eos # (Auto) 0.01 L (0.04-0.36) K/mm3 Baso # (Auto) 0.02 (0.01-0.08) K/mm3 Manual Slide Review Abnormal smear D-Dimer, Quantitative 0.99 H (0.19-0.50) mg/L Sodium 138 (136-145) mEq/L Potassium 4.2 (3.5-5.1) mEq/L Chloride 101 (98-107) mEq/L Carbon Dioxide 29 (21-32) mEq/L Anion Gap 12.2 (5-15) BUN 17 (7-18) mg/dL Creatinine 0.7 (0.55-1.02) mg/dL Est Cr Clr Drug Dosing 79.54 mL/min Estimated GFR (MDRD) > 60 (>60) mL/min BUN/Creatinine Ratio 24.3 H (14-18) Glucose 121 H (74-106) mg/dL Calcium 9.2 (8.5-10.1) mg/dL Phosphorus 3.9 (2.6-4.7) mg/dL Magnesium 2.0 (1.8-2.4) mg/dl Total Bilirubin 0.3 (0.2-1.0) mg/dL AST 22 (15-37) U/L ALT 62 H (14-59) U/L Alkaline Phosphatase 82 (46-116) U/L C-Reactive Protein 2.9 H* (<1.0) mg/dL Total Protein 7.6 (6.4-8.2) g/dl Albumin 2.9 L (3.4-5.0) g/dl Globulin 4.7 gm/dL Albumin/Globulin Ratio 0.6 L (1-2) Med Orders - Current: Current Medications Acetaminophen (Tylenol) 650 mg PO Q4H PRN PRN Reason: Pain (Mild 1-3)/fever Last Admin: 03/02/20 20:06 Dose: 650 mg Documented by: Albuterol (Proventil Neb Soln) 2.5 mg NEB Q2H PRN PRN Reason: Shortness Of Breath/wheezing Last Admin: 03/03/20 05:33 Dose: 2.5 mg Documented by: Albuterol (Proventil Hfa) 0 gm INH Q2H PRN PRN Reason: SOB/WHEEZE Last Admin: 03/05/20 13:00 Dose: 2 puff Documented by: Baclofen (Lioresal) 10 mg PO TID PRN PRN Reason: Spasms Last Admin: 03/05/20 13:35 Dose: 10 mg Documented by: Dexamethasone (Dexamethasone) 6 mg PO Q24H [facility] Stop: 03/09/20 14:01 Last Admin: 03/05/20 13:35 Dose: 6 mg Documented by: Diazepam (Valium.) 5 mg PO TID PRN PRN Reason: Muscle Spasm Dicyclomine HCl (Bentyl) 10 mg PO TID PRN PRN Reason: Abdominal Pain Last Admin: 03/05/20 13:34 Dose: 10 mg Documented by: Ezetimibe (Zetia) 10 mg PO DAILY [facility] Last Admin: 03/05/20 09:03 Dose: 10 mg Documented by: Enoxaparin Sodium (Lovenox) 30 mg SUBCUT Q12H [facility] Last Admin: 03/05/20 05:22 Dose: 30 mg Documented by: Ferrous Sulfate (Ferrous Sulfate) 324 mg PO DAILY [facility] Last Admin: 03/05/20 09:02 Dose: 324 mg Documented by: Levothyroxine Sodium (Levothyroxine) 75 mcg PO ACBREAKFAST [facility] Last Admin: 03/05/20 05:22 Dose: 75 mcg Documented by: Loratadine (Claritin) 10 mg PO DAILY [facility] Last Admin: 03/05/20 09:02 Dose: 10 mg Documented by: Magnesium Hydroxide (Milk Of Magnesia) 30 ml PO Q12H PRN PRN Reason: Constipation Montelukast Sodium (Singulair) 10 mg PO DAILY [facility] Last Admin: 03/05/20 09:02 Dose: 10 mg Documented by: Ondansetron HCl (Zofran) 4 mg IV Q4H PRN PRN Reason: Nausea/Vomiting Pantoprazole Sodium (Protonix) 40 mg PO ACBREAKFAST [facility] Last Admin: 03/05/20 05:22 Dose: 40 mg Documented by: Pramipexole Dihydrochloride (Mirapex) 0.25 mg PO BEDTIME [facility] Last Admin: 03/04/20 21:35 Dose: 0.25 mg Documented by: Simvastatin (Zocor) 10 mg PO DAILY [facility] Last Admin: 03/05/20 09:02 Dose: 10 mg Documented by: Sodium Chloride (Saline Flush) 10 ml FLUSH ASDIRECTED PRN PRN Reason: Keep Vein Open Sucralfate (Carafate) 1 gm PO TIDAC PRN PRN Reason: Abdominal Pain Last Admin: 03/02/20 04:12 Dose: 1 gm Documented by: Discontinued Medications Acetaminophen (Tylenol) 650 mg PO ONCALL ONE Stop: 02/29/20 12:39 Last Admin: 02/29/20 20:02 Dose: Not Given Documented by: Acetaminophen (Tylenol) 650 mg PO NOW ONE Stop: 02/29/20 21:06 Last Admin: 02/29/20 20:25 Dose: 650 mg Documented by: Baclofen (Lioresal) 10 mg PO BID PRN PRN Reason: Pain Last Admin: 03/02/20 04:12 Dose: 10 mg Documented by: Dexamethasone (Dexamethasone) 6 mg IVPUSH ONETIME ONE Stop: 02/29/20 12:21 Last Admin: 02/29/20 13:30 Dose: 6 mg Documented by: Diphenhydramine HCl (Benadryl) 25 mg IVPUSH ONCALL ONE Stop: 02/29/20 12:39 Last Admin: 02/29/20 20:02 Dose: Not Given Documented by: Diphenhydramine HCl (Benadryl) 25 mg IVPUSH ONETIME ONE Stop: 02/29/20 21:08 Last Admin: 02/29/20 20:25 Dose: 25 mg Documented by: Enoxaparin Sodium (Lovenox) 30 mg SUBCUT Q12H [facility] Last Admin: 03/01/20 15:17 Dose: 30 mg Documented by: Enoxaparin Sodium (Lovenox) 30 mg SUBCUT Q12H [facility] Last Admin: 03/04/20 17:45 Dose: 30 mg Documented by: Sodium Chloride (Normal Saline) 100 mls @ 60 mls/hr IV ASDIRECTED GURMEET Last Admin: 02/29/20 12:36 Dose: 60 mls/hr Documented by: Sodium Chloride (Normal Saline) 250 mls @ 20 mls/hr IV ASDIRECTED GURMEET Remdesivir 200 mg/ Sodium (Chloride) 250 mls @ 250 mls/hr IV ONETIME ONE Stop: 02/29/20 13:47 Last Admin: 02/29/20 19:23 Dose: Not Given Documented by: Remdesivir 100 mg/ Sodium (Chloride) 100 mls @ 100 mls/hr IV Q24H GURMEET Stop: 03/04/20 14:59 Last Admin: 03/04/20 13:39 Dose: 100 mls/hr Documented by: Remdesivir 200 mg/ Sodium (Chloride) 250 mls @ 250 mls/hr IV ONETIME ONE Stop: 02/29/20 14:59 Last Admin: 02/29/20 16:31 Dose: 250 mls/hr Documented by: Sodium Chloride (Normal Saline) Confirm Administered Dose 250 mls @ as directed .ROUTE .STK-MED ONE Stop: 02/29/20 20:12 Last Admin: 02/29/20 21:49 Dose: 125 mls/hr Documented by: Ceftriaxone Sodium 2 gm/ (Sodium Chloride) 100 mls @ 200 mls/hr IV Q24H [facility] Stop: 03/05/20 12:29 Last Admin: 03/05/20 11:28 Dose: 200 mls/hr Documented by: Azithromycin 500 mg/ Sodium (Chloride) 250 mls @ 250 mls/hr IV Q24H [facility] Stop: 03/03/20 11:59 Last Admin: 03/03/20 10:34 Dose: 250 mls/hr Documented by: Iopamidol (Isovue-370 (76%)) 100 ml IVPUSH ONETIME ONE Stop: 02/29/20 12:35 Last Admin: 02/29/20 12:36 Dose: 68 ml Documented by: Pantoprazole Sodium (Protonix) 40 mg PO NOW STA Stop: 03/02/20 21:49 Last Admin: 03/02/20 22:33 Dose: 40 mg Documented by: Potassium Chloride (Klor-Con M20) 40 meq PO Q4H GURMEET Stop: 02/29/20 22:31 Last Admin: 02/29/20 21:41 Dose: 40 meq Documented by: Sodium Chloride (Saline Flush) 10 ml FLUSH ONETIME ONE Stop: 02/29/20 12:35 Last Admin: 02/29/20 12:36 Dose: 10 ml Documented by: - Exam Quality Assessment: Supplemental Oxygen (12 L per simple mask.), DVT Prophylaxis (Lovenox) General: Alert, Oriented, Cooperative, Mild Distress HEENT: Pupils Equal, Pupils Reactive, Mucous Membr. Moist/[place] Neck: Supple, Trachea Midline. No: Lymphadenopathy Lungs: Crackles (Fine crackles noted in the bilateral bases.) Cardiovascular: Regular Rate, Regular Rhythm, No Murmurs GI/Abdominal Exam: Normal Bowel Sounds, Soft, Non-Tender, No Distention (Female) Exam: Deferred Back Exam: Normal Inspection, Full Range of Motion Extremities: Normal Inspection, Normal Range of Motion, Non-Tender, No Pedal Edema, Normal Capillary Refill Peripheral Pulses: 2+: Radial (L), Radial (R), Dorsalis Pedis (L), Dorsalis Pedis (R) Skin: Warm, Dry, Intact Neurological: No New Focal Deficit Psy/Mental Status: Alert, Normal Affect, Normal Mood Sepsis Event Note - Evaluation Sepsis Screening Result: No Definite Risk - Focused Exam Vital Signs: Vital Signs Temp Pulse Resp BP Pulse Ox Pulse Ox 03/05/20 13:00 91 L 03/05/20 11:59 90 L 03/05/20 11:28 98.2 F 90 18 120/62 90 L 03/05/20 08:23 97.5 F 94 16 129/64 89 L 03/05/20 08:14 90 L 03/05/20 06:35 90 L 03/05/20 05:20 98.4 F 67 22 H 110/59 L 90 L - Problem List & Annotations (1) COVID-19 SNOMED Code(s): 644988021 Code(s): U07.1 - COVID-19 Status: Acute Priority: High Current Visit: Yes (2) Hypoxia SNOMED Code(s): 635994493 Code(s): R09.02 - HYPOXEMIA Status: Acute Priority: High Current Visit: Yes (3) Pneumonia due to 2019 novel coronavirus SNOMED Code(s): 825429471100269084 Code(s): U07.1 - COVID-19; J12.89 - OTHER VIRAL PNEUMONIA Status: Acute Priority: High Current Visit: Yes - Problem List Review Problem List Initiated/Reviewed/Updated: Yes - My Orders Last 24 Hours: My Active Orders 03/05/20 06:00 Enoxaparin [Lovenox] 30 mg SUBCUT Q12H - Assessment Assessment:: 03/01/20 * Increased shortness of breath with activity today. * Increased oxygen need now requiring 4 L per nasal cannula * Increased crackles noted to bilateral bases * Using incentive spirometer and flutter valve * Has received 2 units of convalescent plasma * Day 2 remdesivir and dexamethasone * Chest x-ray from today reveals worsening groundglass airspace disease within the lower lung steel bilaterally since the prior examination * Vital signs otherwise stable and patient is afebrile. * Labs reveal:WBC 8.45, D-dimer 1.59 down from 2.62,Potassium 4.5 up from 3.2, BUN 16, Creatinine 0.8, GFR greater than 60, Glucose range 124-131, C-reactive protein 32.2 up from 28.4 * Procalcitonin added to today's lab work * On Lovenox for DVT prophylaxis. 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 03/02/2020 * Continuing worsening of her oxygen saturations. She increased to 6 L and now is on high flow nasal cannula. Patient does continue to have good appetite. * Labs continue to improve. WBC 6.3, D-dimer 1.1, CRP 18. * Procalcitonin was 0.11. * Started on Rocephin and azithromycin yesterday. 03/03/2020 * Patient does not tolerate high flow nasal cannula or CPAP. * Switch to simple mask at 12 L with good oxygenation and tolerance * Continue to encourage proning, incentive spirometer, flutter valve * Labs continue to improve. Normal white count, decreasing D-dimer of 0.96, CRP significantly reduced to 9.1. Albumin has also slightly dropped at 2.9. 03/04/20 * Currently on 12 L of oxygen per simple mask. Respiratory the nursing staff continues to titrate this. * Day 4 of Rocephin. * Day 5 of dexamethasone and remdesivir. * Vital signs remained stable otherwise and she has been afebrile in the past 24 hours. * D-dimer 1.08 that is up from 0.96, C-reactive protein 4.8 which is down from 9.1. Labs are otherwise unremarkable. * She is tolerating her diet eating 100% of her meals. * Continue to encourage prone positioning, incentive spirometer, and flutter valve. * Lovenox for DVT prophylaxis. 03/05/20 * He is on 12 L of oxygen per simple mask. * Day 5 of Rocephin * Day 6 of dexamethasone * D-dimer 0.99, C-reactive protein 2.9 * Eating 100% of her meals * Lovenox for DVT prophylaxis * Uses incentive spirometer and flutter valve * Is up ambulating independently in her room. * Respiratory therapy continues to titrate or attempt to titrate oxygen - Plan Plan:: 02/29/20 * Tested positive for Covid on February 19. * Developed symptoms of Covid on February 20 which she describes as feeling like she has a sinus infection. However over the course of the last 8 days she has developed a persistent nonproductive cough and shortness of breath also is noticing that her taste and smell are decreasing. She denies any diarrhea stools or abdominal pain or headache or body aches. * O2 saturations in the ER were 85% on room air currently on 3 L per nasal cannula. * Initial vitals in the ER were a temp of 100.1, pulse of 116, respiratory rate of 26, blood pressure of 120/74, and O2 saturations of 85% on room air. * Lab work reveals: WBC 9.53 D-dimer 2.62 patient was sent for CTA which did not show any PEs. C-reactive protein 28.4, sodium 133, potassium 3.2, BUN 12, creatinine 0.9, GFR is greater than 60, magnesium 1.9, ferritin 687, LDH 273, BNP 148, lactic acid 1.3 * ABGs on room air reveal a pH of 7.52, PCO2 33.4, PO2 50, HCO3 26.9. * The patient did receive an IV dose of dexamethasone 6 mg in the emergency department. PLAN: * Remdesivir 200 mg IV now then 100 mg IV daily for a total of 5 days. * Potassium 40 mEq p.o. every 4 hours x3 doses * Convalescent plasma 2 units when available. I spoke with the patient to provide information about convalescent plasma for her. I offered her the fax sheet for patients and parents/caregivers for COVID-19 convalescent plasma to read and review. I stated the therapy has been approved by an emergency use authorization process and has not fully been FDA reviewed or approved. I shared potential risks from the therapy including transmission of blood-borne pathogen such as HIV and hepatitis C, allergic and transfusion related reactions, post transfusion purpura. Additionally theoretical risks including a phenomenon called antibody dependent enhancement of infection such as is seen in dengue or attenuation of an immune response that may make patients more susceptible to reinfection. I discussed that there are other potential treatment options that are currently not FDA approved to treat Covid. Offered opportunity to ask questions and all questions were answered. The patient voiced understanding and agreed to proceed with the treatment for herself. * Oxygen as needed to keep sats between 88 to 92% * Respiratory care to titrate oxygen. * Albuterol nebulizers every 2 hours as needed for shortness of breath or wheezing * Incentive spirometer and flutter valve every hour while awake * Lovenox for DVT prophylaxis * Continuous pulse oximetry * 911 emergency services dispatcher to consult for discharge planning. * Dietitian to consult for increased caloric needs. * Dexamethasone 6 mg daily * Patient is a full code * Repeat labs in the a.m. * Monitor daily weight and intake and output * Monitor vital signs Patient will be here at least 5 days as needed for the length of treatment for Covid. 03/01/20 * Continue remdesivir and dexamethasone * Continue incentive spirometry and flutter valve * Start Rocephin 2 g IV every 24 hours for 5 days and Zithromax 500 mg IV every 24 hours for 3 days due to worsening pneumonia on chest x-ray and increased oxygen needs. * Respiratory therapy to continue titrating oxygen * Albuterol nebulizers as needed for shortness of breath or wheezing * Lovenox for DVT prophylaxis * Continuous pulse oximetry * Continue to monitor vital signs and intakes and outputs * Repeat lab work in the a.m. 03/02/2020 * Day 3 of remdesivir and dexamethasone * Day 2 of Rocephin and azithromycin * Continue incentive spirometry and flutter valve * High flow nasal cannula to keep SPO2 between 88 and 94%. * Repeat labs in the morning. * Encourage patient prone. 03/03/2020 * Day 4 of remdesivir and dexamethasone * Day 3 of Rocephin and azithromycin * CBC, CMP, mag, Phos in the morning * Continue simple mask. If she requires high flow we will have to come up with some alternative. * Continue to encourage lying prone, incentive spirometer, and flutter valve. 03/04/20 * Continue to titrate O2 * Continue incentive spirometer and flutter valve * Lovenox for DVT prophylaxis * Continuous pulse oximetry * Continue to monitor vital signs and intake and output * Repeat labs in the a.m. and correct electrolyte abnormalities as needed. * Will likely be here at least a couple more days due to high oxygen needs at this time. 03/05/20 * Continue to wean O2 * Lovenox for DVT prophylaxis * Continue to monitor vital signs * Repeat labs in the a.m. * Encourage incentive spirometer flutter valve and increase activity in her room.
[2020-03-05] MEDS: Pramipexole 0.25 MG Tab PO SCH (20:21)
[2020-03-06] MEDS: Enoxaparin 30 MG/0.3 ML Syringe SUBCUT SCH ×2 (06:10→17:02)
[2020-03-06] MEDS: Pantoprazole 40 MG Tab.CR PO SCH (06:11)
[2020-03-06] MEDS: Levothyroxine 75 MCG Tab PO SCH (06:11)
[2020-03-06] MEDS: Albuterol 6.7 GM Inhaler INH PRN ×3 (08:46→20:35)
[2020-03-06] MEDS: Loratadine 10 MG Tab PO SCH (09:06)
[2020-03-06] MEDS: Simvastatin 10 MG Tab PO SCH (09:06)
[2020-03-06] MEDS: Ferrous Sulfate 324 MG Tab.EC PO SCH (09:06)
[2020-03-06] MEDS: Ezetimibe 10 MG Tab PO SCH (09:07)
[2020-03-06] MEDS: Montelukast 10 MG Tab PO SCH (09:07)
[2020-03-06] MEDS ORDERED: Fluconazole 150 MG Tab PO ONE (12:00)
[2020-03-06] MEDS: Baclofen 10 MG Tab PO PRN ×2 (12:05→21:05)
[2020-03-06] MEDS: Dicyclomine 10 MG Cap PO PRN ×2 (12:05→21:05)
--- NOTE | 2020-03-06 14:00 | PCM.PN ---
- General Info Date of Service: 03/06/20 Admission Dx/Problem (Free Text): Admission Diagnosis/Problem Admission Diagnosis/Problem Hypoxia Subjective Update: Patient reports that she is feeling much better today. She is down to 4 L per nasal cannula. Anticipate discharge to home in the next day or 2. Functional Status: Reports: Pain Controlled, Tolerating Diet, Ambulating, Urinating, Incentive Spirometry - Review of Systems General: Reports: No Symptoms HEENT: Reports: No Symptoms Pulmonary: Reports: Shortness of Breath (With increased activity.). Denies: Cough, Sputum, Wheezing Cardiovascular: Reports: No Symptoms Gastrointestinal: Reports: No Symptoms Genitourinary: Reports: No Symptoms Musculoskeletal: Reports: No Symptoms Skin: Reports: Other (Reports itching and burning to vaginal area. States she is getting a yeast infection from receiving antibiotics as she has had this happen in the past.) Neurological: Reports: No Symptoms Psychiatric: Reports: No Symptoms - Patient Data Vitals - Most Recent: Last Vital Signs Temp 98.2 F 03/06/20 12:07 Pulse 89 03/06/20 12:07 Resp 20 03/06/20 12:07 BP 129/77 03/06/20 12:07 Pulse Ox 93 L 03/06/20 13:08 Weight - Most Recent: 199 lb 3.2 oz I&O - Last 24 Hours: Intake & Output 03/05/20 03/06/20 03/06/20 22:59 06:59 14:59 Intake Total 1160 200 Output Total 1200 300 Balance -40 -100 Lab Results Last 24 Hours: Laboratory Results - last 24 hr 03/06/20 03/06/20 03/06/20 Range/Units 09:02 09:02 09:02 WBC 11.72 H (3.98-10.04) K/mm3 RBC 5.19 (3.98-5.22) M/mm3 Hgb 14.6 (11.2-15.7) gm/dl Hct 44.9 (34.1-44.9) % MCV 86.5 (79.4-94.8) fl MCH 28.1 (25.6-32.2) pg MCHC 32.5 (32.2-35.5) g/dl RDW Std Deviation 40.9 (36.4-46.3) fL Plt Count 341 (182-369) K/mm3 MPV 9.3 L (9.4-12.3) fl Neut % (Auto) 82.4 H (34.0-71.1) % Lymph % (Auto) 10.4 L (19.3-51.7) % [place] % (Auto) 6.1 (4.7-12.5) % Eos % (Auto) 0 L (0.7-5.8) Baso % (Auto) 0.2 (0.1-1.2) % Neut # (Auto) 9.66 H (1.56-6.13) K/mm3 Lymph # (Auto) 1.22 (1.18-3.74) K/mm3 [place] # (Auto) 0.71 H (0.24-0.36) K/mm3 Eos # (Auto) 0.00 L (0.04-0.36) K/mm3 Baso # (Auto) 0.02 (0.01-0.08) K/mm3 Manual Slide Review Abnormal smear D-Dimer, Quantitative 0.93 H (0.19-0.50) mg/L Sodium 136 (136-145) mEq/L Potassium 3.6 (3.5-5.1) mEq/L Chloride 99 (98-107) mEq/L Carbon Dioxide 28 (21-32) mEq/L Anion Gap 12.6 (5-15) BUN 17 (7-18) mg/dL Creatinine 0.8 (0.55-1.02) mg/dL Est Cr Clr Drug Dosing 69.59 mL/min Estimated GFR (MDRD) > 60 (>60) mL/min BUN/Creatinine Ratio 21.3 H (14-18) Glucose 130 H (74-106) mg/dL Calcium 9.3 (8.5-10.1) mg/dL Phosphorus 3.5 (2.6-4.7) mg/dL Magnesium 2.0 (1.8-2.4) mg/dl Total Bilirubin 0.4 (0.2-1.0) mg/dL AST 18 (15-37) U/L ALT 50 (14-59) U/L Alkaline Phosphatase 89 (46-116) U/L C-Reactive Protein 2.0 H* (<1.0) mg/dL Total Protein 7.8 (6.4-8.2) g/dl Albumin 3.0 L (3.4-5.0) g/dl Globulin 4.8 gm/dL Albumin/Globulin Ratio 0.6 L (1-2) Med Orders - Current: Current Medications Acetaminophen (Tylenol) 650 mg PO Q4H PRN PRN Reason: Pain (Mild 1-3)/fever Last Admin: 03/02/20 20:06 Dose: 650 mg Documented by: Albuterol (Proventil Neb Soln) 2.5 mg NEB Q2H PRN PRN Reason: Shortness Of Breath/wheezing Last Admin: 03/03/20 05:33 Dose: 2.5 mg Documented by: Albuterol (Proventil Hfa) 0 gm INH Q2H PRN PRN Reason: SOB/WHEEZE Last Admin: 03/06/20 08:46 Dose: 2 puff Documented by: Baclofen (Lioresal) 10 mg PO TID PRN PRN Reason: Spasms Last Admin: 03/06/20 12:05 Dose: 10 mg Documented by: Dexamethasone (Dexamethasone) 6 mg PO Q24H PENDING SALE TO [facility] Stop: 03/09/20 14:01 Last Admin: 03/05/20 13:35 Dose: 6 mg Documented by: Diazepam (Valium.) 5 mg PO TID PRN PRN Reason: Muscle Spasm Dicyclomine HCl (Bentyl) 10 mg PO TID PRN PRN Reason: Abdominal Pain Last Admin: 03/06/20 12:05 Dose: 10 mg Documented by: Ezetimibe (Zetia) 10 mg PO DAILY PENDING SALE TO [facility] Last Admin: 03/06/20 09:07 Dose: 10 mg Documented by: Enoxaparin Sodium (Lovenox) 30 mg SUBCUT Q12H PENDING SALE TO [facility] Last Admin: 03/06/20 06:10 Dose: 30 mg Documented by: Ferrous Sulfate (Ferrous Sulfate) 324 mg PO DAILY PENDING SALE TO [facility] Last Admin: 03/06/20 09:06 Dose: 324 mg Documented by: Levothyroxine Sodium (Levothyroxine) 75 mcg PO ACBREAKFAST PENDING SALE TO [facility] Last Admin: 03/06/20 06:11 Dose: 75 mcg Documented by: Loratadine (Claritin) 10 mg PO DAILY PENDING SALE TO [facility] Last Admin: 03/06/20 09:06 Dose: 10 mg Documented by: Magnesium Hydroxide (Milk Of Magnesia) 30 ml PO Q12H PRN PRN Reason: Constipation Montelukast Sodium (Singulair) 10 mg PO DAILY PENDING SALE TO [facility] Last Admin: 03/06/20 09:07 Dose: 10 mg Documented by: Ondansetron HCl (Zofran) 4 mg IV Q4H PRN PRN Reason: Nausea/Vomiting Pantoprazole Sodium (Protonix) 40 mg PO ACBREAKFAST PENDING SALE TO [facility] Last Admin: 03/06/20 06:11 Dose: 40 mg Documented by: Pramipexole Dihydrochloride (Mirapex) 0.25 mg PO BEDTIME PENDING SALE TO [facility] Last Admin: 03/05/20 20:21 Dose: 0.25 mg Documented by: Simvastatin (Zocor) 10 mg PO DAILY PENDING SALE TO [facility] Last Admin: 03/06/20 09:06 Dose: 10 mg Documented by: Sodium Chloride (Saline Flush) 10 ml FLUSH ASDIRECTED PRN PRN Reason: Keep Vein Open Sucralfate (Carafate) 1 gm PO TIDAC PRN PRN Reason: Abdominal Pain Last Admin: 03/02/20 04:12 Dose: 1 gm Documented by: Discontinued Medications Acetaminophen (Tylenol) 650 mg PO ONCALL ONE Stop: 02/29/20 12:39 Last Admin: 02/29/20 20:02 Dose: Not Given Documented by: Acetaminophen (Tylenol) 650 mg PO NOW ONE Stop: 02/29/20 21:06 Last Admin: 02/29/20 20:25 Dose: 650 mg Documented by: Baclofen (Lioresal) 10 mg PO BID PRN PRN Reason: Pain Last Admin: 03/02/20 04:12 Dose: 10 mg Documented by: Dexamethasone (Dexamethasone) 6 mg IVPUSH ONETIME ONE Stop: 02/29/20 12:21 Last Admin: 02/29/20 13:30 Dose: 6 mg Documented by: Diphenhydramine HCl (Benadryl) 25 mg IVPUSH ONCALL ONE Stop: 02/29/20 12:39 Last Admin: 02/29/20 20:02 Dose: Not Given Documented by: Diphenhydramine HCl (Benadryl) 25 mg IVPUSH ONETIME ONE Stop: 02/29/20 21:08 Last Admin: 02/29/20 20:25 Dose: 25 mg Documented by: Enoxaparin Sodium (Lovenox) 30 mg SUBCUT Q12H PENDING SALE TO [facility] Last Admin: 03/01/20 15:17 Dose: 30 mg Documented by: Enoxaparin Sodium (Lovenox) 30 mg SUBCUT Q12H PENDING SALE TO [facility] Last Admin: 03/04/20 17:45 Dose: 30 mg Documented by: Fluconazole (Diflucan) 150 mg PO ONETIME ONE Stop: 03/06/20 12:01 Last Admin: 03/06/20 12:04 Dose: 150 mg Documented by: Sodium Chloride (Normal Saline) 100 mls @ 60 mls/hr IV ASDIRECTED PENDING SALE TO [facility] Last Admin: 02/29/20 12:36 Dose: 60 mls/hr Documented by: Sodium Chloride (Normal Saline) 250 mls @ 20 mls/hr IV ASDIRECTED PENDING SALE TO [facility] Remdesivir 200 mg/ Sodium (Chloride) 250 mls @ 250 mls/hr IV ONETIME ONE Stop: 02/29/20 13:47 Last Admin: 02/29/20 19:23 Dose: Not Given Documented by: Remdesivir 100 mg/ Sodium (Chloride) 100 mls @ 100 mls/hr IV Q24H PENDING SALE TO [facility] Stop: 03/04/20 14:59 Last Admin: 03/04/20 13:39 Dose: 100 mls/hr Documented by: Remdesivir 200 mg/ Sodium (Chloride) 250 mls @ 250 mls/hr IV ONETIME ONE Stop: 02/29/20 14:59 Last Admin: 02/29/20 16:31 Dose: 250 mls/hr Documented by: Sodium Chloride (Normal Saline) Confirm Administered Dose 250 mls @ as directed .ROUTE .STK-MED ONE Stop: 02/29/20 20:12 Last Admin: 02/29/20 21:49 Dose: 125 mls/hr Documented by: Ceftriaxone Sodium 2 gm/ (Sodium Chloride) 100 mls @ 200 mls/hr IV Q24H PENDING SALE TO [facility] Stop: 03/05/20 12:29 Last Admin: 03/05/20 11:28 Dose: 200 mls/hr Documented by: Azithromycin 500 mg/ Sodium (Chloride) 250 mls @ 250 mls/hr IV Q24H PENDING SALE TO [facility] Stop: 03/03/20 11:59 Last Admin: 03/03/20 10:34 Dose: 250 mls/hr Documented by: Iopamidol (Isovue-370 (76%)) 100 ml IVPUSH ONETIME ONE Stop: 02/29/20 12:35 Last Admin: 02/29/20 12:36 Dose: 68 ml Documented by: Pantoprazole Sodium (Protonix) 40 mg PO NOW STA Stop: 03/02/20 21:49 Last Admin: 03/02/20 22:33 Dose: 40 mg Documented by: Potassium Chloride (Klor-Con M20) 40 meq PO Q4H GURMEET Stop: 02/29/20 22:31 Last Admin: 02/29/20 21:41 Dose: 40 meq Documented by: Sodium Chloride (Saline Flush) 10 ml FLUSH ONETIME ONE Stop: 02/29/20 12:35 Last Admin: 02/29/20 12:36 Dose: 10 ml Documented by: - Exam Quality Assessment: DVT Prophylaxis. No: Supplemental Oxygen General: Alert, Oriented, Cooperative, No Acute Distress HEENT: Pupils Equal, Pupils Reactive, Mucous Membr. Moist/[place] Neck: Supple, Trachea Midline. No: Lymphadenopathy Lungs: Clear to Auscultation, Normal Respiratory Effort Cardiovascular: Regular Rate, Regular Rhythm, No Murmurs GI/Abdominal Exam: Normal Bowel Sounds, Soft, Non-Tender, No Distention (Female) Exam: Deferred Back Exam: Normal Inspection, Full Range of Motion Extremities: Normal Inspection, Normal Range of Motion, Non-Tender, No Pedal Edema, Normal Capillary Refill Peripheral Pulses: 2+: Radial (L), Radial (R), Dorsalis Pedis (L), Dorsalis Pedis (R) Skin: Warm, Dry, Intact Neurological: No New Focal Deficit Psy/Mental Status: Alert, Normal Affect, Normal Mood Sepsis Event Note - Evaluation Sepsis Screening Result: No Definite Risk - Focused Exam Vital Signs: Vital Signs Temp Temp Pulse Pulse Resp BP BP 03/06/20 13:08 03/06/20 12:14 03/06/20 12:07 98.2 F 89 20 129/77 03/06/20 12:00 03/06/20 09:00 03/06/20 08:55 88 16 117/69 03/06/20 08:46 03/06/20 05:43 03/06/20 03:41 73 101/64 03/06/20 03:37 97.4 F 75 17 101/64 Pulse Ox Pulse Ox Pulse Ox 03/06/20 13:08 93 L 03/06/20 12:14 93 L 03/06/20 12:07 90 L 03/06/20 12:00 91 L 94 L 03/06/20 09:00 91 L 03/06/20 08:55 87 L 03/06/20 08:46 96 03/06/20 05:43 96 03/06/20 03:41 93 L 03/06/20 03:37 100 - Problem List & Annotations (1) COVID-19 SNOMED Code(s): 513501342 Code(s): U07.1 - COVID-19 Status: Acute Priority: High Current Visit: Yes (2) Hypoxia SNOMED Code(s): 864126541 Code(s): R09.02 - HYPOXEMIA Status: Acute Priority: High Current Visit: Yes (3) Pneumonia due to 2019 novel coronavirus SNOMED Code(s): 215983759782302748 Code(s): U07.1 - COVID-19; J12.89 - OTHER VIRAL PNEUMONIA Status: Acute Priority: High Current Visit: Yes - Problem List Review Problem List Initiated/Reviewed/Updated: Yes - Assessment Assessment:: 03/01/20 * Increased shortness of breath with activity today. * Increased oxygen need now requiring 4 L per nasal cannula * Increased crackles noted to bilateral bases * Using incentive spirometer and flutter valve * Has received 2 units of convalescent plasma * Day 2 remdesivir and dexamethasone * Chest x-ray from today reveals worsening groundglass airspace disease within the lower lung steel bilaterally since the prior examination * Vital signs otherwise stable and patient is afebrile. * Labs reveal:WBC 8.45, D-dimer 1.59 down from 2.62,Potassium 4.5 up from 3.2, BUN 16, Creatinine 0.8, GFR greater than 60, Glucose range 124-131, C-reactive protein 32.2 up from 28.4 * Procalcitonin added to today's lab work * On Lovenox for DVT prophylaxis. * sales agent business services and case director data management * Dietitian consulting * Respiratory care to continue titrating oxygen as needed * Encouraging prone positioning. 03/02/2020 * Continuing worsening of her oxygen saturations. She increased to 6 L and now is on high flow nasal cannula. Patient does continue to have good appetite. * Labs continue to improve. WBC 6.3, D-dimer 1.1, CRP 18. * Procalcitonin was 0.11. * Started on Rocephin and azithromycin yesterday. 03/03/2020 * Patient does not tolerate high flow nasal cannula or CPAP. * Switch to simple mask at 12 L with good oxygenation and tolerance * Continue to encourage proning, incentive spirometer, flutter valve * Labs continue to improve. Normal white count, decreasing D-dimer of 0.96, CRP significantly reduced to 9.1. Albumin has also slightly dropped at 2.9. 03/04/20 * Currently on 12 L of oxygen per simple mask. Respiratory the nursing staff continues to titrate this. * Day 4 of Rocephin. * Day 5 of dexamethasone and remdesivir. * Vital signs remained stable otherwise and she has been afebrile in the past 24 hours. * D-dimer 1.08 that is up from 0.96, C-reactive protein 4.8 which is down from 9.1. Labs are otherwise unremarkable. * She is tolerating her diet eating 100% of her meals. * Continue to encourage prone positioning, incentive spirometer, and flutter valve. * Lovenox for DVT prophylaxis. 03/05/20 * He is on 12 L of oxygen per simple mask. * Day 5 of Rocephin * Day 6 of dexamethasone * D-dimer 0.99, C-reactive protein 2.9 * Eating 100% of her meals * Lovenox for DVT prophylaxis * Uses incentive spirometer and flutter valve * Is up ambulating independently in her room. * Respiratory therapy continues to titrate or attempt to titrate oxygen 03/06/20 * She is currently on 4 L oxygen per nasal cannula * Day 7 of dexamethasone * Labs reveal: WBC 11.72, D-dimer 0.93 potassium 3.6 C-reactive protein 2.0 * Lovenox for DVT prophylaxis * Up independently and ambulating in her room * Incentive spirometer and flutter valve * Respiratory therapy to continue to titrate oxygen. * Complains of itching and burning in vaginal area states this is due to receiving antibiotics as she has had issues with yeast infections in the past after receiving antibiotics. - Plan Plan:: 02/29/20 * Tested positive for Covid on February 19. * Developed symptoms of Covid on February 20 which she describes as feeling like she has a sinus infection. However over the course of the last 8 days she has developed a persistent nonproductive cough and shortness of breath also is noticing that her taste and smell are decreasing. She denies any diarrhea stools or abdominal pain or headache or body aches. * O2 saturations in the ER were 85% on room air currently on 3 L per nasal cannula. * Initial vitals in the ER were a temp of 100.1, pulse of 116, respiratory rate of 26, blood pressure of 120/74, and O2 saturations of 85% on room air. * Lab work reveals: WBC 9.53 D-dimer 2.62 patient was sent for CTA which did not show any PEs. C-reactive protein 28.4, sodium 133, potassium 3.2, BUN 12, creatinine 0.9, GFR is greater than 60, magnesium 1.9, ferritin 687, LDH 273, BNP 148, lactic acid 1.3 * ABGs on room air reveal a pH of 7.52, PCO2 33.4, PO2 50, HCO3 26.9. * The patient did receive an IV dose of dexamethasone 6 mg in the emergency department. PLAN: * Remdesivir 200 mg IV now then 100 mg IV daily for a total of 5 days. * Potassium 40 mEq p.o. every 4 hours x3 doses * Convalescent plasma 2 units when available. I spoke with the patient to provide information about convalescent plasma for her. I offered her the fax sheet for patients and parents/caregivers for COVID-19 convalescent plasma to read and review. I stated the therapy has been approved by an emergency use authorization process and has not fully been FDA reviewed or approved. I shared potential risks from the therapy including transmission of blood-borne pathogen such as HIV and hepatitis C, allergic and transfusion related reactions, post transfusion purpura. Additionally theoretical risks including a phenomenon called antibody dependent enhancement of infection such as is seen in dengue or attenuation of an immune response that may make patients more susceptible to reinfection. I discussed that there are other potential treatment options that are currently not FDA approved to treat Covid. Offered opportunity to ask questions and all questions were answered. The patient voiced understanding and agreed to proceed with the treatment for herself. * Oxygen as needed to keep sats between 88 to 92% * Respiratory care to titrate oxygen. * Albuterol nebulizers every 2 hours as needed for shortness of breath or wheezing * Incentive spirometer and flutter valve every hour while awake * Lovenox for DVT prophylaxis * Continuous pulse oximetry * sales agent business services to consult for discharge planning. * Dietitian to consult for increased caloric needs. * Dexamethasone 6 mg daily * Patient is a full code * Repeat labs in the a.m. * Monitor daily weight and intake and output * Monitor vital signs Patient will be here at least 5 days as needed for the length of treatment for Covid. 03/01/20 * Continue remdesivir and dexamethasone * Continue incentive spirometry and flutter valve * Start Rocephin 2 g IV every 24 hours for 5 days and Zithromax 500 mg IV every 24 hours for 3 days due to worsening pneumonia on chest x-ray and increased oxygen needs. * Respiratory therapy to continue titrating oxygen * Albuterol nebulizers as needed for shortness of breath or wheezing * Lovenox for DVT prophylaxis * Continuous pulse oximetry * Continue to monitor vital signs and intakes and outputs * Repeat lab work in the a.m. 03/02/2020 * Day 3 of remdesivir and dexamethasone * Day 2 of Rocephin and azithromycin * Continue incentive spirometry and flutter valve * High flow nasal cannula to keep SPO2 between 88 and 94%. * Repeat labs in the morning. * Encourage patient prone. 03/03/2020 * Day 4 of remdesivir and dexamethasone * Day 3 of Rocephin and azithromycin * CBC, CMP, mag, Phos in the morning * Continue simple mask. If she requires high flow we will have to come up with some alternative. * Continue to encourage lying prone, incentive spirometer, and flutter valve. 03/04/20 * Continue to titrate O2 * Continue incentive spirometer and flutter valve * Lovenox for DVT prophylaxis * Continuous pulse oximetry * Continue to monitor vital signs and intake and output * Repeat labs in the a.m. and correct electrolyte abnormalities as needed. * Will likely be here at least a couple more days due to high oxygen needs at this time. 03/05/20 * Continue to wean O2 * Lovenox for DVT prophylaxis * Continue to monitor vital signs * Repeat labs in the a.m. * Encourage incentive spirometer flutter valve and increase activity in her room. 03/06/20 * Diflucan 150 mg p.o. x1 dose * Continue to wean oxygen * Continue to monitor vital signs * Lovenox for DVT prophylaxis * Will repeat labs in the a.m. * Plan is for discharge in the next day or 2 as patient is able to wean off her oxygen.
[2020-03-06] MEDS: Dexamethasone 4 MG Tab PO SCH (14:17)
[2020-03-06] MEDS ORDERED: Potassium Chloride 20 MEQ Tab.ER PO ONE (15:00)
[2020-03-06] MEDS: Acetaminophen 325 MG Tab PO PRN (17:05)
[2020-03-06] MEDS: Pramipexole 0.25 MG Tab PO SCH (21:03)
[2020-03-07] MEDS: Levothyroxine 75 MCG Tab PO SCH (06:02)
[2020-03-07] MEDS: Enoxaparin 30 MG/0.3 ML Syringe SUBCUT SCH ×2 (06:02→17:14)
[2020-03-07] MEDS: Pantoprazole 40 MG Tab.CR PO SCH (06:02)
[2020-03-07] MEDS: Albuterol 6.7 GM Inhaler INH PRN ×5 (06:18→21:28)
[2020-03-07] MEDS: Ferrous Sulfate 324 MG Tab.EC PO SCH (09:09)
[2020-03-07] MEDS: Loratadine 10 MG Tab PO SCH (09:09)
[2020-03-07] MEDS: Montelukast 10 MG Tab PO SCH (09:09)
[2020-03-07] MEDS: Baclofen 10 MG Tab PO PRN ×2 (09:09→22:03)
[2020-03-07] MEDS: Dicyclomine 10 MG Cap PO PRN ×2 (09:09→22:02)
[2020-03-07] MEDS: Ezetimibe 10 MG Tab PO SCH (09:09)
[2020-03-07] MEDS: Simvastatin 10 MG Tab PO SCH (09:09)
--- NOTE | 2020-03-07 13:00 | PCM.PN ---
- General Info Date of Service: 03/07/20 Admission Dx/Problem (Free Text): Admission Diagnosis/Problem Admission Diagnosis/Problem Hypoxia Subjective Update: Patient is doing well. She states she feels good and is ready to go home. Functional Status: Reports: Pain Controlled, Tolerating Diet, Ambulating, Urinating, Incentive Spirometry - Review of Systems General: Reports: No Symptoms HEENT: Reports: Glasses Pulmonary: Denies: Shortness of Breath, Cough, Sputum Cardiovascular: Reports: No Symptoms Gastrointestinal: Reports: No Symptoms Genitourinary: Reports: No Symptoms Musculoskeletal: Reports: No Symptoms Skin: Reports: No Symptoms Neurological: Reports: No Symptoms Psychiatric: Reports: No Symptoms - Patient Data Vitals - Most Recent: Last Vital Signs Temp 97.3 F 03/07/20 08:34 Pulse 98 03/07/20 08:34 Resp 16 03/07/20 08:34 BP 112/70 03/07/20 08:34 Pulse Ox 92 L 03/07/20 09:05 Weight - Most Recent: 199 lb 3.2 oz I&O - Last 24 Hours: Intake & Output 03/06/20 03/07/20 03/07/20 22:59 06:59 14:59 Intake Total 1260 600 240 Output Total 1500 1800 Balance -240 -1200 240 Lab Results Last 24 Hours: Laboratory Results - last 24 hr 03/07/20 03/07/20 03/07/20 Range/Units 07:57 07:57 07:57 WBC 12.68 H (3.98-10.04) K/mm3 RBC 5.41 H (3.98-5.22) M/mm3 Hgb 15.2 (11.2-15.7) gm/dl Hct 46.8 H (34.1-44.9) % MCV 86.5 (79.4-94.8) fl MCH 28.1 (25.6-32.2) pg MCHC 32.5 (32.2-35.5) g/dl RDW Std Deviation 40.7 (36.4-46.3) fL Plt Count 386 H (182-369) K/mm3 MPV 9.4 (9.4-12.3) fl Neut % (Auto) 78.6 H (34.0-71.1) % Lymph % (Auto) 13.1 L (19.3-51.7) % [place] % (Auto) 6.5 (4.7-12.5) % Eos % (Auto) 0 L (0.7-5.8) Baso % (Auto) 0.2 (0.1-1.2) % Neut # (Auto) 9.97 H (1.56-6.13) K/mm3 Lymph # (Auto) 1.66 (1.18-3.74) K/mm3 [place] # (Auto) 0.83 H (0.24-0.36) K/mm3 Eos # (Auto) 0.00 L (0.04-0.36) K/mm3 Baso # (Auto) 0.02 (0.01-0.08) K/mm3 Manual Slide Review Abnormal smear D-Dimer, Quantitative 0.86 H (0.19-0.50) mg/L Sodium 137 (136-145) mEq/L Potassium 4.3 (3.5-5.1) mEq/L Chloride 99 (98-107) mEq/L Carbon Dioxide 29 (21-32) mEq/L Anion Gap 13.3 (5-15) BUN 19 H (7-18) mg/dL Creatinine 0.8 (0.55-1.02) mg/dL Est Cr Clr Drug Dosing 69.59 mL/min Estimated GFR (MDRD) > 60 (>60) mL/min BUN/Creatinine Ratio 23.8 H (14-18) Glucose 113 H (74-106) mg/dL Calcium 9.7 (8.5-10.1) mg/dL Magnesium 2.2 (1.8-2.4) mg/dl Total Bilirubin 0.4 (0.2-1.0) mg/dL AST 20 (15-37) U/L ALT 59 (14-59) U/L Alkaline Phosphatase 97 (46-116) U/L C-Reactive Protein 1.3 H* (<1.0) mg/dL Total Protein 8.3 H (6.4-8.2) g/dl Albumin 3.3 L (3.4-5.0) g/dl Globulin 5.0 gm/dL Albumin/Globulin Ratio 0.7 L (1-2) Med Orders - Current: Current Medications Acetaminophen (Tylenol) 650 mg PO Q4H PRN PRN Reason: Pain (Mild 1-3)/fever Last Admin: 03/06/20 17:05 Dose: 650 mg Documented by: Albuterol (Proventil Neb Soln) 2.5 mg NEB Q2H PRN PRN Reason: Shortness Of Breath/wheezing Last Admin: 03/03/20 05:33 Dose: 2.5 mg Documented by: Albuterol (Proventil Hfa) 0 gm INH Q2H PRN PRN Reason: SOB/WHEEZE Last Admin: 03/07/20 12:44 Dose: 2 puff Documented by: Baclofen (Lioresal) 10 mg PO TID PRN PRN Reason: Spasms Last Admin: 03/07/20 09:09 Dose: 10 mg Documented by: Dexamethasone (Dexamethasone) 6 mg PO Q24H [facility] Stop: 03/09/20 14:01 Last Admin: 03/06/20 14:17 Dose: 6 mg Documented by: Diazepam (Valium.) 5 mg PO TID PRN PRN Reason: Muscle Spasm Dicyclomine HCl (Bentyl) 10 mg PO TID PRN PRN Reason: Abdominal Pain Last Admin: 03/07/20 09:09 Dose: 10 mg Documented by: Ezetimibe (Zetia) 10 mg PO DAILY [facility] Last Admin: 03/07/20 09:09 Dose: 10 mg Documented by: Enoxaparin Sodium (Lovenox) 30 mg SUBCUT Q12H [facility] Last Admin: 03/07/20 06:02 Dose: 30 mg Documented by: Ferrous Sulfate (Ferrous Sulfate) 324 mg PO DAILY [facility] Last Admin: 03/07/20 09:09 Dose: 324 mg Documented by: Levothyroxine Sodium (Levothyroxine) 75 mcg PO ACBREAKFAST [facility] Last Admin: 03/07/20 06:02 Dose: 75 mcg Documented by: Loratadine (Claritin) 10 mg PO DAILY [facility] Last Admin: 03/07/20 09:09 Dose: 10 mg Documented by: Magnesium Hydroxide (Milk Of Magnesia) 30 ml PO Q12H PRN PRN Reason: Constipation Montelukast Sodium (Singulair) 10 mg PO DAILY [facility] Last Admin: 03/07/20 09:09 Dose: 10 mg Documented by: Ondansetron HCl (Zofran) 4 mg IV Q4H PRN PRN Reason: Nausea/Vomiting Pantoprazole Sodium (Protonix) 40 mg PO ACBREAKFAST [facility] Last Admin: 03/07/20 06:02 Dose: 40 mg Documented by: Pramipexole Dihydrochloride (Mirapex) 0.25 mg PO BEDTIME [facility] Last Admin: 03/06/20 21:03 Dose: 0.25 mg Documented by: Simvastatin (Zocor) 10 mg PO DAILY [facility] Last Admin: 03/07/20 09:09 Dose: 10 mg Documented by: Sodium Chloride (Saline Flush) 10 ml FLUSH ASDIRECTED PRN PRN Reason: Keep Vein Open Sucralfate (Carafate) 1 gm PO TIDAC PRN PRN Reason: Abdominal Pain Last Admin: 03/02/20 04:12 Dose: 1 gm Documented by: Discontinued Medications Acetaminophen (Tylenol) 650 mg PO ONCALL ONE Stop: 02/29/20 12:39 Last Admin: 02/29/20 20:02 Dose: Not Given Documented by: Acetaminophen (Tylenol) 650 mg PO NOW ONE Stop: 02/29/20 21:06 Last Admin: 02/29/20 20:25 Dose: 650 mg Documented by: Baclofen (Lioresal) 10 mg PO BID PRN PRN Reason: Pain Last Admin: 03/02/20 04:12 Dose: 10 mg Documented by: Dexamethasone (Dexamethasone) 6 mg IVPUSH ONETIME ONE Stop: 02/29/20 12:21 Last Admin: 02/29/20 13:30 Dose: 6 mg Documented by: Diphenhydramine HCl (Benadryl) 25 mg IVPUSH ONCALL ONE Stop: 02/29/20 12:39 Last Admin: 02/29/20 20:02 Dose: Not Given Documented by: Diphenhydramine HCl (Benadryl) 25 mg IVPUSH ONETIME ONE Stop: 02/29/20 21:08 Last Admin: 02/29/20 20:25 Dose: 25 mg Documented by: Enoxaparin Sodium (Lovenox) 30 mg SUBCUT Q12H [facility] Last Admin: 03/01/20 15:17 Dose: 30 mg Documented by: Enoxaparin Sodium (Lovenox) 30 mg SUBCUT Q12H [facility] Last Admin: 03/04/20 17:45 Dose: 30 mg Documented by: Fluconazole (Diflucan) 150 mg PO ONETIME ONE Stop: 03/06/20 12:01 Last Admin: 03/06/20 12:04 Dose: 150 mg Documented by: Sodium Chloride (Normal Saline) 100 mls @ 60 mls/hr IV ASDIRECTED [facility] Last Admin: 02/29/20 12:36 Dose: 60 mls/hr Documented by: Sodium Chloride (Normal Saline) 250 mls @ 20 mls/hr IV ASDIRECTED [facility] Remdesivir 200 mg/ Sodium (Chloride) 250 mls @ 250 mls/hr IV ONETIME ONE Stop: 02/29/20 13:47 Last Admin: 02/29/20 19:23 Dose: Not Given Documented by: Remdesivir 100 mg/ Sodium (Chloride) 100 mls @ 100 mls/hr IV Q24H [facility] Stop: 03/04/20 14:59 Last Admin: 03/04/20 13:39 Dose: 100 mls/hr Documented by: Remdesivir 200 mg/ Sodium (Chloride) 250 mls @ 250 mls/hr IV ONETIME ONE Stop: 02/29/20 14:59 Last Admin: 02/29/20 16:31 Dose: 250 mls/hr Documented by: Sodium Chloride (Normal Saline) Confirm Administered Dose 250 mls @ as directed .ROUTE .STK-MED ONE Stop: 02/29/20 20:12 Last Admin: 02/29/20 21:49 Dose: 125 mls/hr Documented by: Ceftriaxone Sodium 2 gm/ (Sodium Chloride) 100 mls @ 200 mls/hr IV Q24H [facility] Stop: 03/05/20 12:29 Last Admin: 03/05/20 11:28 Dose: 200 mls/hr Documented by: Azithromycin 500 mg/ Sodium (Chloride) 250 mls @ 250 mls/hr IV Q24H [facility] Stop: 03/03/20 11:59 Last Admin: 03/03/20 10:34 Dose: 250 mls/hr Documented by: Iopamidol (Isovue-370 (76%)) 100 ml IVPUSH ONETIME ONE Stop: 02/29/20 12:35 Last Admin: 02/29/20 12:36 Dose: 68 ml Documented by: Pantoprazole Sodium (Protonix) 40 mg PO NOW STA Stop: 03/02/20 21:49 Last Admin: 03/02/20 22:33 Dose: 40 mg Documented by: Potassium Chloride (Klor-Con M20) 40 meq PO Q4H [facility] Stop: 02/29/20 22:31 Last Admin: 02/29/20 21:41 Dose: 40 meq Documented by: Potassium Chloride (Klor-Con M20) 20 meq PO ONETIME ONE Stop: 03/06/20 15:01 Last Admin: 03/06/20 16:11 Dose: 20 meq Documented by: Sodium Chloride (Saline Flush) 10 ml FLUSH ONETIME ONE Stop: 02/29/20 12:35 Last Admin: 02/29/20 12:36 Dose: 10 ml Documented by: - Exam Quality Assessment: Supplemental Oxygen (2-1/2 L per nasal cannula.), DVT Prophylaxis (Lovenox) General: Alert, Oriented, Cooperative, No Acute Distress HEENT: Pupils Equal, Pupils Reactive, Mucous Membr. Moist/[place] Neck: Supple, Trachea Midline. No: Lymphadenopathy Lungs: Clear to Auscultation, Normal Respiratory Effort Cardiovascular: Regular Rate, Regular Rhythm, No Murmurs GI/Abdominal Exam: Normal Bowel Sounds, Soft, Non-Tender, No Distention (Female) Exam: Deferred Back Exam: Normal Inspection, Full Range of Motion Extremities: Normal Inspection, Normal Range of Motion, Non-Tender, No Pedal Edema, Normal Capillary Refill Peripheral Pulses: 2+: Radial (L), Radial (R), Dorsalis Pedis (L), Dorsalis Pedis (R) Skin: Warm, Dry, Intact Neurological: No New Focal Deficit Psy/Mental Status: Alert, Normal Affect, Normal Mood Sepsis Event Note - Evaluation Sepsis Screening Result: Sepsis Risk - Focused Exam Vital Signs: Vital Signs Temp Pulse Resp BP Pulse Ox Pulse Ox 03/07/20 09:05 92 L 03/07/20 08:34 97.3 F 98 16 112/70 89 L 03/07/20 08:08 90 L 03/07/20 06:18 91 L 03/07/20 06:10 74 89 L 03/07/20 06:07 97.5 F 78 18 116/69 - Problem List & Annotations (1) COVID-19 SNOMED Code(s): 796910477 Code(s): U07.1 - COVID-19 Status: Acute Priority: High Current Visit: Yes (2) Hypoxia SNOMED Code(s): 187597176 Code(s): R09.02 - HYPOXEMIA Status: Acute Priority: High Current Visit: Yes (3) Pneumonia due to 2019 novel coronavirus SNOMED Code(s): 331408193130274379 Code(s): U07.1 - COVID-19; J12.89 - OTHER VIRAL PNEUMONIA Status: Acute Priority: High Current Visit: Yes - Problem List Review Problem List Initiated/Reviewed/Updated: Yes - My Orders Last 24 Hours: My Active Orders 03/07/20 07:57 PROCALCITONIN [REF] Stat 03/07/20 09:03 Communication Order [RC] DAILY - Assessment Assessment:: 03/01/20 * Increased shortness of breath with activity today. * Increased oxygen need now requiring 4 L per nasal cannula * Increased crackles noted to bilateral bases * Using incentive spirometer and flutter valve * Has received 2 units of convalescent plasma * Day 2 remdesivir and dexamethasone * Chest x-ray from today reveals worsening groundglass airspace disease within the lower lung steel bilaterally since the prior examination * Vital signs otherwise stable and patient is afebrile. * Labs reveal:WBC 8.45, D-dimer 1.59 down from 2.62,Potassium 4.5 up from 3.2, BUN 16, Creatinine 0.8, GFR greater than 60, Glucose range 124-131, C-reactive protein 32.2 up from 28.4 * Procalcitonin added to today's lab work * On Lovenox for DVT prophylaxis. * instructor ground services and case management associate * Dietitian consulting * Respiratory care to continue titrating oxygen as needed * Encouraging prone positioning. 03/02/2020 * Continuing worsening of her oxygen saturations. She increased to 6 L and now is on high flow nasal cannula. Patient does continue to have good appetite. * Labs continue to improve. WBC 6.3, D-dimer 1.1, CRP 18. * Procalcitonin was 0.11. * Started on Rocephin and azithromycin yesterday. 03/03/2020 * Patient does not tolerate high flow nasal cannula or CPAP. * Switch to simple mask at 12 L with good oxygenation and tolerance * Continue to encourage proning, incentive spirometer, flutter valve * Labs continue to improve. Normal white count, decreasing D-dimer of 0.96, CRP significantly reduced to 9.1. Albumin has also slightly dropped at 2.9. 03/04/20 * Currently on 12 L of oxygen per simple mask. Respiratory the nursing staff continues to titrate this. * Day 4 of Rocephin. * Day 5 of dexamethasone and remdesivir. * Vital signs remained stable otherwise and she has been afebrile in the past 24 hours. * D-dimer 1.08 that is up from 0.96, C-reactive protein 4.8 which is down from 9.1. Labs are otherwise unremarkable. * She is tolerating her diet eating 100% of her meals. * Continue to encourage prone positioning, incentive spirometer, and flutter valve. * Lovenox for DVT prophylaxis. 03/05/20 * He is on 12 L of oxygen per simple mask. * Day 5 of Rocephin * Day 6 of dexamethasone * D-dimer 0.99, C-reactive protein 2.9 * Eating 100% of her meals * Lovenox for DVT prophylaxis * Uses incentive spirometer and flutter valve * Is up ambulating independently in her room. * Respiratory therapy continues to titrate or attempt to titrate oxygen 03/06/20 * She is currently on 4 L oxygen per nasal cannula * Day 7 of dexamethasone * Labs reveal: WBC 11.72, D-dimer 0.93 potassium 3.6 C-reactive protein 2.0 * Lovenox for DVT prophylaxis * Up independently and ambulating in her room * Incentive spirometer and flutter valve * Respiratory therapy to continue to titrate oxygen. * Complains of itching and burning in vaginal area states this is due to receiving antibiotics as she has had issues with yeast infections in the past after receiving antibiotics. 03/07/20 * She is currently on 2-1/2 L of oxygen per nasal cannula. * Day 8 of dexamethasone. * Patient is using the incentive spirometer and flutter valve every hour while awake * She is up and ambulating in her room independently. * Respiratory therapy continues to titrate oxygen. * WBC 12.68, platelet 386, D-dimer down to 0.86, BUN 19, creatinine 0.8, GFR greater than 60, magnesium 2.2, and C-reactive protein 1.3. - Plan Plan:: 02/29/20 * Tested positive for Covid on February 19. * Developed symptoms of Covid on February 20 which she describes as feeling like she has a sinus infection. However over the course of the last 8 days she has developed a persistent nonproductive cough and shortness of breath also is noticing that her taste and smell are decreasing. She denies any diarrhea stools or abdominal pain or headache or body aches. * O2 saturations in the ER were 85% on room air currently on 3 L per nasal cannula. * Initial vitals in the ER were a temp of 100.1, pulse of 116, respiratory rate of 26, blood pressure of 120/74, and O2 saturations of 85% on room air. * Lab work reveals: WBC 9.53 D-dimer 2.62 patient was sent for CTA which did not show any PEs. C-reactive protein 28.4, sodium 133, potassium 3.2, BUN 12, creatinine 0.9, GFR is greater than 60, magnesium 1.9, ferritin 687, LDH 273, BNP 148, lactic acid 1.3 * ABGs on room air reveal a pH of 7.52, PCO2 33.4, PO2 50, HCO3 26.9. * The patient did receive an IV dose of dexamethasone 6 mg in the emergency department. PLAN: * Remdesivir 200 mg IV now then 100 mg IV daily for a total of 5 days. * Potassium 40 mEq p.o. every 4 hours x3 doses * Convalescent plasma 2 units when available. I spoke with the patient to provide information about convalescent plasma for her. I offered her the fax sheet for patients and parents/caregivers for COVID-19 convalescent plasma to read and review. I stated the therapy has been approved by an emergency use authorization process and has not fully been FDA reviewed or approved. I shared potential risks from the therapy including transmission of blood-borne pathogen such as HIV and hepatitis C, allergic and transfusion related reactions, post transfusion purpura. Additionally theoretical risks including a phenomenon called antibody dependent enhancement of infection such as is seen in dengue or attenuation of an immune response that may make patients more susceptible to reinfection. I discussed that there are other potential treatment options that are currently not FDA approved to treat Covid. Offered opportunity to ask questions and all questions were answered. The patient voiced understanding and agreed to proceed with the treatment for herself. * Oxygen as needed to keep sats between 88 to 92% * Respiratory care to titrate oxygen. * Albuterol nebulizers every 2 hours as needed for shortness of breath or wheezing * Incentive spirometer and flutter valve every hour while awake * Lovenox for DVT prophylaxis * Continuous pulse oximetry * instructor ground services to consult for discharge planning. * Dietitian to consult for increased caloric needs. * Dexamethasone 6 mg daily * Patient is a full code * Repeat labs in the a.m. * Monitor daily weight and intake and output * Monitor vital signs Patient will be here at least 5 days as needed for the length of treatment for Covid. 03/01/20 * Continue remdesivir and dexamethasone * Continue incentive spirometry and flutter valve * Start Rocephin 2 g IV every 24 hours for 5 days and Zithromax 500 mg IV every 24 hours for 3 days due to worsening pneumonia on chest x-ray and increased oxygen needs. * Respiratory therapy to continue titrating oxygen * Albuterol nebulizers as needed for shortness of breath or wheezing * Lovenox for DVT prophylaxis * Continuous pulse oximetry * Continue to monitor vital signs and intakes and outputs * Repeat lab work in the a.m. 03/02/2020 * Day 3 of remdesivir and dexamethasone * Day 2 of Rocephin and azithromycin * Continue incentive spirometry and flutter valve * High flow nasal cannula to keep SPO2 between 88 and 94%. * Repeat labs in the morning. * Encourage patient prone. 03/03/2020 * Day 4 of remdesivir and dexamethasone * Day 3 of Rocephin and azithromycin * CBC, CMP, mag, Phos in the morning * Continue simple mask. If she requires high flow we will have to come up with some alternative. * Continue to encourage lying prone, incentive spirometer, and flutter valve. 03/04/20 * Continue to titrate O2 * Continue incentive spirometer and flutter valve * Lovenox for DVT prophylaxis * Continuous pulse oximetry * Continue to monitor vital signs and intake and output * Repeat labs in the a.m. and correct electrolyte abnormalities as needed. * Will likely be here at least a couple more days due to high oxygen needs at this time. 03/05/20 * Continue to wean O2 * Lovenox for DVT prophylaxis * Continue to monitor vital signs * Repeat labs in the a.m. * Encourage incentive spirometer flutter valve and increase activity in her room. 03/06/20 * Diflucan 150 mg p.o. x1 dose * Continue to wean oxygen * Continue to monitor vital signs * Lovenox for DVT prophylaxis * Will repeat labs in the a.m. * Plan is for discharge in the next day or 2 as patient is able to wean off her oxygen. 03/07/20 * Continue to titrate oxygen to room air. * Ox for DVT prophylaxis. * Incentive spirometer every 1 hour while awake with flutter valve. * Will repeat lab work in the morning. * Plan is to discharge the patient to home tomorrow.
[2020-03-07] MEDS: Dexamethasone 4 MG Tab PO SCH (13:19)
[2020-03-07] MEDS: Acetaminophen 325 MG Tab PO PRN (22:01)
[2020-03-07] MEDS: Pramipexole 0.25 MG Tab PO SCH (22:11)
[2020-03-08] MEDS: Albuterol 6.7 GM Inhaler INH PRN ×2 (04:17→08:21)
[2020-03-08] MEDS: Enoxaparin 30 MG/0.3 ML Syringe SUBCUT SCH (06:21)
[2020-03-08] MEDS: Levothyroxine 75 MCG Tab PO SCH (06:22)
[2020-03-08] MEDS: Pantoprazole 40 MG Tab.CR PO SCH (06:22)
[2020-03-08] MEDS: Loratadine 10 MG Tab PO SCH (08:06)
[2020-03-08] MEDS: Simvastatin 10 MG Tab PO SCH (08:07)
[2020-03-08] MEDS: Ferrous Sulfate 324 MG Tab.EC PO SCH (08:07)
[2020-03-08] MEDS: Ezetimibe 10 MG Tab PO SCH (08:07)
[2020-03-08] MEDS: Montelukast 10 MG Tab PO SCH (08:07)
--- NOTE | 2020-03-08 11:31 | PCM.DCSUM1 ---
Discharge Summary - Hospital Course HPI Initial Comments: Patient is a 49-year-old female who presents to the ED for the evaluation of her ongoing Covid symptoms. Patient notes that she had a random Covid test done at work on February 19, and states this was positive. She states that her symptoms started on February 20. She notes a dry cough, low-grade fever with a temperature of 100.1 F being the highest she has no notes. States he has an appetite but she has not really been eating a whole lot. She is complaining of worsening shortness of breath/dyspnea. She states that she has a history of asthma and high cholesterol, she takes no asthma medications. Her O2 sats are 85 to 86% on room air when she arrived to the ER. Oxygen was placed via nasal cannula at about 3 L/min. 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 Her primary care provider is Dr. Sosa. Diagnosis: Stroke: No - Discharge Data Discharge Date: 03/08/20 (Admit date: 02/29/20) Discharge Disposition: Home, Self-Care 01 Condition: Good - Referral to Home Health Primary Care Physician: Lily Sosa MD - Discharge Diagnosis/Problem(s) (1) COVID-19 SNOMED Code(s): 154156983 ICD Code: U07.1 - COVID-19 Status: Acute Priority: High Current Visit: Yes (2) Hypoxia SNOMED Code(s): 651622035 ICD Code: R09.02 - HYPOXEMIA Status: Acute Priority: High Current Visit: Yes (3) Pneumonia due to 2019 novel coronavirus SNOMED Code(s): 239691947351803507 ICD Code: U07.1 - COVID-19; J12.89 - OTHER VIRAL PNEUMONIA Status: Acute Priority: High Current Visit: Yes - Patient Summary/Data Consults: Consultations 02/29/20 12:38 Consult to Case Management/Sail Cutter [CONS] Routine Consult to Arborer [CONS] Routine Consult to Spiritual Care [CONS] Routine Respiratory Care Assess and Treatment [CONS] Routine Hospital Course: 03/01/20 * Increased shortness of breath with activity today. * Increased oxygen need now requiring 4 L per nasal cannula * Increased crackles noted to bilateral bases * Using incentive spirometer and flutter valve * Has received 2 units of convalescent plasma * Day 2 remdesivir and dexamethasone * Chest x-ray from today reveals worsening groundglass airspace disease within the lower lung steel bilaterally since the prior examination * Vital signs otherwise stable and patient is afebrile. * Labs reveal:WBC 8.45, D-dimer 1.59 down from 2.62,Potassium 4.5 up from 3.2, BUN 16, Creatinine 0.8, GFR greater than 60, Glucose range 124-131, C-reactive protein 32.2 up from 28.4 * Procalcitonin added to today's lab work * On Lovenox for DVT prophylaxis. * food and nutrition services supervisor and case records management assistant * Dietitian consulting * Respiratory care to continue titrating oxygen as needed * Encouraging prone positioning. 03/02/2020 * Continuing worsening of her oxygen saturations. She increased to 6 L and now is on high flow nasal cannula. Patient does continue to have good appetite. * Labs continue to improve. WBC 6.3, D-dimer 1.1, CRP 18. * Procalcitonin was 0.11. * Started on Rocephin and azithromycin yesterday. 03/03/2020 * Patient does not tolerate high flow nasal cannula or CPAP. * Switch to simple mask at 12 L with good oxygenation and tolerance * Continue to encourage proning, incentive spirometer, flutter valve * Labs continue to improve. Normal white count, decreasing D-dimer of 0.96, CRP significantly reduced to 9.1. Albumin has also slightly dropped at 2.9. 03/04/20 * Currently on 12 L of oxygen per simple mask. Respiratory the nursing staff continues to titrate this. * Day 4 of Rocephin. * Day 5 of dexamethasone and remdesivir. * Vital signs remained stable otherwise and she has been afebrile in the past 24 hours. * D-dimer 1.08 that is up from 0.96, C-reactive protein 4.8 which is down from 9.1. Labs are otherwise unremarkable. * She is tolerating her diet eating 100% of her meals. * Continue to encourage prone positioning, incentive spirometer, and flutter valve. * Lovenox for DVT prophylaxis. 03/05/20 * He is on 12 L of oxygen per simple mask. * Day 5 of Rocephin * Day 6 of dexamethasone * D-dimer 0.99, C-reactive protein 2.9 * Eating 100% of her meals * Lovenox for DVT prophylaxis * Uses incentive spirometer and flutter valve * Is up ambulating independently in her room. * Respiratory therapy continues to titrate or attempt to titrate oxygen 03/06/20 * She is currently on 4 L oxygen per nasal cannula * Day 7 of dexamethasone * Labs reveal: WBC 11.72, D-dimer 0.93 potassium 3.6 C-reactive protein 2.0 * Lovenox for DVT prophylaxis * Up independently and ambulating in her room * Incentive spirometer and flutter valve * Respiratory therapy to continue to titrate oxygen. * Complains of itching and burning in vaginal area states this is due to receivi ng antibiotics as she has had issues with yeast infections in the past after receiving antibiotics. 03/07/20 * She is currently on 2-1/2 L of oxygen per nasal cannula. * Day 8 of dexamethasone. * Patient is using the incentive spirometer and flutter valve every hour while awake * She is up and ambulating in her room independently. * Respiratory therapy continues to titrate oxygen. * WBC 12.68, platelet 386, D-dimer down to 0.86, BUN 19, creatinine 0.8, GFR greater than 60, magnesium 2.2, and C-reactive protein 1.3. - Plan Plan:: 02/29/20 * Tested positive for Covid on February 19. * Developed symptoms of Covid on February 20 which she describes as feeling like she has a sinus infection. However over the course of the last 8 days she has developed a persistent nonproductive cough and shortness of breath also is noticing that her taste and smell are decreasing. She denies any diarrhea stools or abdominal pain or headache or body aches. * O2 saturations in the ER were 85% on room air currently on 3 L per nasal cannula. * Initial vitals in the ER were a temp of 100.1, pulse of 116, respiratory rate of 26, blood pressure of 120/74, and O2 saturations of 85% on room air. * Lab work reveals: WBC 9.53 D-dimer 2.62 patient was sent for CTA which did not show any PEs. C-reactive protein 28.4, sodium 133, potassium 3.2, BUN 12, creatinine 0.9, GFR is greater than 60, magnesium 1.9, ferritin 687, LDH 273, BNP 148, lactic acid 1.3 * ABGs on room air reveal a pH of 7.52, PCO2 33.4, PO2 50, HCO3 26.9. * The patient did receive an IV dose of dexamethasone 6 mg in the emergency department. PLAN: * Remdesivir 200 mg IV now then 100 mg IV daily for a total of 5 days. * Potassium 40 mEq p.o. every 4 hours x3 doses * Convalescent plasma 2 units when available. I spoke with the patient to provide information about convalescent plasma for her. I offered her the fax sheet for patients and parents/caregivers for COVID-19 convalescent plasma to read and review. I stated the therapy has been approved by an emergency use authorization process and has not fully been FDA reviewed or approved. I shared potential risks from the therapy including transmission of blood-borne pathogen such as HIV and hepatitis C, allergic and transfusion related reactions, post transfusion purpura. Additionally theoretical risks including a phenomenon called antibody dependent enhancement of infection such as is seen in dengue or attenuation of an immune response that may make patients more susceptible to reinfection. I discussed that there are other potential treatment options that are currently not FDA approved to treat Covid. Offered opportunity to ask questions and all questions were answered. The patient voiced understanding and agreed to proceed with the treatment for herself. * Oxygen as needed to keep sats between 88 to 92% * Respiratory care to titrate oxygen. * Albuterol nebulizers every 2 hours as needed for shortness of breath or wheezing * Incentive spirometer and flutter valve every hour while awake * Lovenox for DVT prophylaxis * Continuous pulse oximetry * food and nutrition services supervisor to consult for discharge planning. * Dietitian to consult for increased caloric needs. * Dexamethasone 6 mg daily * Patient is a full code * Repeat labs in the a.m. * Monitor daily weight and intake and output * Monitor vital signs Patient will be here at least 5 days as needed for the length of treatment for Covid. 03/01/20 * Continue remdesivir and dexamethasone * Continue incentive spirometry and flutter valve * Start Rocephin 2 g IV every 24 hours for 5 days and Zithromax 500 mg IV every 24 hours for 3 days due to worsening pneumonia on chest x-ray and increased oxygen needs. * Respiratory therapy to continue titrating oxygen * Albuterol nebulizers as needed for shortness of breath or wheezing * Lovenox for DVT prophylaxis * Continuous pulse oximetry * Continue to monitor vital signs and intakes and outputs * Repeat lab work in the a.m. 03/02/2020 * Day 3 of remdesivir and dexamethasone * Day 2 of Rocephin and azithromycin * Continue incentive spirometry and flutter valve * High flow nasal cannula to keep SPO2 between 88 and 94%. * Repeat labs in the morning. * Encourage patient prone. 03/03/2020 * Day 4 of remdesivir and dexamethasone * Day 3 of Rocephin and azithromycin * CBC, CMP, mag, Phos in the morning * Continue simple mask. If she requires high flow we will have to come up with some alternative. * Continue to encourage lying prone, incentive spirometer, and flutter valve. 03/04/20 * Continue to titrate O2 * Continue incentive spirometer and flutter valve * Lovenox for DVT prophylaxis * Continuous pulse oximetry * Continue to monitor vital signs and intake and output * Repeat labs in the a.m. and correct electrolyte abnormalities as needed. * Will likely be here at least a couple more days due to high oxygen needs at this time. 03/05/20 * Continue to wean O2 * Lovenox for DVT prophylaxis * Continue to monitor vital signs * Repeat labs in the a.m. * Encourage incentive spirometer flutter valve and increase activity in her room. 03/06/20 * Diflucan 150 mg p.o. x1 dose * Continue to wean oxygen * Continue to monitor vital signs * Lovenox for DVT prophylaxis * Will repeat labs in the a.m. * Plan is for discharge in the next day or 2 as patient is able to wean off her oxygen. 03/07/20 * Continue to titrate oxygen to room air. * Ox for DVT prophylaxis. * Incentive spirometer every 1 hour while awake with flutter valve. * Will repeat lab work in the morning. * Plan is to discharge the patient to home tomorrow. 03/08/20 * Patient is on room air. * She will be discharged to home today. * She has received 8 doses of dexamethasone and I do not plan to send her home with a prescription for the last 2 doses. * Will not send her home on anticoagulation as her D-dimer is down to 0.86. * She will need to follow-up with her primary care provider in 1 week. - Patient Instructions Diet: Usual Diet as Tolerated Activity: As Tolerated Notify Provider of: Fever Other/Special Instructions: May discharge to home. Follow-up with primary care provider in 1 week. Continue using incentive spirometer every hour while awake. If you should develop a fever or your condition should worsen or change follow-up with your primary care provider or return to the emergency department. Continue to use your C Pap at night while sleeping. May return to work at the discretion of your primary care provider. - Discharge Plan *PRESCRIPTION DRUG MONITORING PROGRAM REVIEWED*: No *COPY OF PRESCRIPTION DRUG MONITORING REPORT IN PATIENT PRINCE: No Home Medications: Home Meds Cetirizine [ZyrTEC] 10 mg PO DAILY 06/03/19 [History] Dicyclomine [Bentyl] 10 mg PO ASDIRECTED PRN 06/03/19 [History] Ezetimibe [Zetia] 10 mg PO DAILY 06/03/19 [History] Iron 325 mg PO DAILY 06/03/19 [History] Levothyroxine [Synthroid] 75 mcg PO ACBREAKFAST 06/03/19 [History] Montelukast [Singulair] 10 mg PO DAILY 06/03/19 [History] atorvaSTATin [Lipitor] 10 mg PO DAILY 06/03/19 [History] Baclofen 10 mg PO ASDIRECTED PRN 11/05/19 [History] Pramipexole Di-HCl [Mirapex] 0.25 mg PO BEDTIME 11/05/19 [History] Sucralfate [Carafate] 1 gm PO ASDIRECTED PRN 02/29/20 [History] Oxygen Therapy Mode: Room Air Patient Handouts: COVID-19, Sepsis, Diagnosis, Adult, COVID-19: How to Protect Yourself and Others - CDC, Community-Acquired Pneumonia, Adult, [id number] Forms: ED Department Discharge Referrals: Lily Sosa MD [Primary Care Provider] - - Discharge Summary/Plan Comment DC Time >30 min.: No - General Info Date of Service: 03/08/20 Admission Dx/Problem (Free Text: Admission Diagnosis/Problem Admission Diagnosis/Problem Hypoxia Subjective Update: Patient is doing well today. She is on room air. And she states that she feels like she is ready to go home. Functional Status: Reports: Pain Controlled, Tolerating Diet, Ambulating, Urinating, Incentive Spirometry - Review of Systems General: Reports: No Symptoms HEENT: Reports: No Symptoms Pulmonary: Reports: No Symptoms. Denies: Shortness of Breath, Cough, Sputum Cardiovascular: Reports: No Symptoms Gastrointestinal: Reports: No Symptoms Genitourinary: Reports: No Symptoms Musculoskeletal: Reports: No Symptoms Skin: Reports: No Symptoms Neurological: Reports: No Symptoms Psychiatric: Reports: No Symptoms - Patient Data Vitals - Most Recent: Last Vital Signs Temp 97.5 F 03/08/20 08:12 Pulse 95 03/08/20 08:12 Resp 18 03/08/20 08:00 BP 121/70 03/08/20 08:12 Pulse Ox 91 L 03/08/20 09:25 Weight - Most Recent: 200 lb 8 oz I&O - Last 24 hours: Intake & Output 03/07/20 03/08/20 03/08/20 22:59 06:59 14:59 Intake Total 1740 1400 Output Total 2000 1850 Balance -260 -450 Lab Results - Last 24 hrs: Laboratory Results - last 24 hr 03/07/20 Range/Units 07:57 Procalcitonin <0.05 (<0.10) ng/mL Med Orders - Current: Current Medications Acetaminophen (Tylenol) 650 mg PO Q4H PRN PRN Reason: Pain (Mild 1-3)/fever Last Admin: 03/07/20 22:01 Dose: 650 mg Documented by: Albuterol (Proventil Neb Soln) 2.5 mg NEB Q2H PRN PRN Reason: Shortness Of Breath/wheezing Last Admin: 03/03/20 05:33 Dose: 2.5 mg Documented by: Albuterol (Proventil Hfa) 0 gm INH Q2H PRN PRN Reason: SOB/WHEEZE Last Admin: 03/08/20 08:21 Dose: 2 puff Documented by: Baclofen (Lioresal) 10 mg PO TID PRN PRN Reason: Spasms Last Admin: 03/07/20 22:03 Dose: 10 mg Documented by: Dexamethasone (Dexamethasone) 6 mg PO Q24H [facility] Stop: 03/09/20 14:01 Last Admin: 03/07/20 13:19 Dose: 6 mg Documented by: Diazepam (Valium.) 5 mg PO TID PRN PRN Reason: Muscle Spasm Dicyclomine HCl (Bentyl) 10 mg PO TID PRN PRN Reason: Abdominal Pain Last Admin: 03/07/20 22:02 Dose: 10 mg Documented by: Ezetimibe (Zetia) 10 mg PO DAILY [facility] Last Admin: 03/08/20 08:07 Dose: 10 mg Documented by: Enoxaparin Sodium (Lovenox) 30 mg SUBCUT Q12H [facility] Last Admin: 03/08/20 06:21 Dose: 30 mg Documented by: Ferrous Sulfate (Ferrous Sulfate) 324 mg PO DAILY [facility] Last Admin: 03/08/20 08:07 Dose: 324 mg Documented by: Levothyroxine Sodium (Levothyroxine) 75 mcg PO ACBREAKFAST [facility] Last Admin: 03/08/20 06:22 Dose: 75 mcg Documented by: Loratadine (Claritin) 10 mg PO DAILY [facility] Last Admin: 03/08/20 08:06 Dose: 10 mg Documented by: Magnesium Hydroxide (Milk Of Magnesia) 30 ml PO Q12H PRN PRN Reason: Constipation Montelukast Sodium (Singulair) 10 mg PO DAILY [facility] Last Admin: 03/08/20 08:07 Dose: 10 mg Documented by: Ondansetron HCl (Zofran) 4 mg IV Q4H PRN PRN Reason: Nausea/Vomiting Pantoprazole Sodium (Protonix) 40 mg PO ACBREAKFAST [facility] Last Admin: 03/08/20 06:22 Dose: 40 mg Documented by: Pramipexole Dihydrochloride (Mirapex) 0.25 mg PO BEDTIME [facility] Last Admin: 03/07/20 22:11 Dose: 0.25 mg Documented by: Simvastatin (Zocor) 10 mg PO DAILY [facility] Last Admin: 03/08/20 08:07 Dose: 10 mg Documented by: Sodium Chloride (Saline Flush) 10 ml FLUSH ASDIRECTED PRN PRN Reason: Keep Vein Open Sucralfate (Carafate) 1 gm PO TIDAC PRN PRN Reason: Abdominal Pain Last Admin: 03/02/20 04:12 Dose: 1 gm Documented by: Discontinued Medications Acetaminophen (Tylenol) 650 mg PO ONCALL ONE Stop: 02/29/20 12:39 Last Admin: 02/29/20 20:02 Dose: Not Given Documented by: Acetaminophen (Tylenol) 650 mg PO NOW ONE Stop: 02/29/20 21:06 Last Admin: 02/29/20 20:25 Dose: 650 mg Documented by: Baclofen (Lioresal) 10 mg PO BID PRN PRN Reason: Pain Last Admin: 03/02/20 04:12 Dose: 10 mg Documented by: Dexamethasone (Dexamethasone) 6 mg IVPUSH ONETIME ONE Stop: 02/29/20 12:21 Last Admin: 02/29/20 13:30 Dose: 6 mg Documented by: Diphenhydramine HCl (Benadryl) 25 mg IVPUSH ONCALL ONE Stop: 02/29/20 12:39 Last Admin: 02/29/20 20:02 Dose: Not Given Documented by: Diphenhydramine HCl (Benadryl) 25 mg IVPUSH ONETIME ONE Stop: 02/29/20 21:08 Last Admin: 02/29/20 20:25 Dose: 25 mg Documented by: Enoxaparin Sodium (Lovenox) 30 mg SUBCUT Q12H [facility] Last Admin: 03/01/20 15:17 Dose: 30 mg Documented by: Enoxaparin Sodium (Lovenox) 30 mg SUBCUT Q12H [facility] Last Admin: 03/04/20 17:45 Dose: 30 mg Documented by: Fluconazole (Diflucan) 150 mg PO ONETIME ONE Stop: 03/06/20 12:01 Last Admin: 03/06/20 12:04 Dose: 150 mg Documented by: Sodium Chloride (Normal Saline) 100 mls @ 60 mls/hr IV ASDIRECTED [facility] Last Admin: 02/29/20 12:36 Dose: 60 mls/hr Documented by: Sodium Chloride (Normal Saline) 250 mls @ 20 mls/hr IV ASDIRECTED [facility] Remdesivir 200 mg/ Sodium (Chloride) 250 mls @ 250 mls/hr IV ONETIME ONE Stop: 02/29/20 13:47 Last Admin: 02/29/20 19:23 Dose: Not Given Documented by: Remdesivir 100 mg/ Sodium (Chloride) 100 mls @ 100 mls/hr IV Q24H [facility] Stop: 03/04/20 14:59 Last Admin: 03/04/20 13:39 Dose: 100 mls/hr Documented by: Remdesivir 200 mg/ Sodium (Chloride) 250 mls @ 250 mls/hr IV ONETIME ONE Stop: 02/29/20 14:59 Last Admin: 02/29/20 16:31 Dose: 250 mls/hr Documented by: Sodium Chloride (Normal Saline) Confirm Administered Dose 250 mls @ as directed .ROUTE .STK-MED ONE Stop: 02/29/20 20:12 Last Admin: 02/29/20 21:49 Dose: 125 mls/hr Documented by: Ceftriaxone Sodium 2 gm/ (Sodium Chloride) 100 mls @ 200 mls/hr IV Q24H [facility] Stop: 03/05/20 12:29 Last Admin: 03/05/20 11:28 Dose: 200 mls/hr Documented by: Azithromycin 500 mg/ Sodium (Chloride) 250 mls @ 250 mls/hr IV Q24H [facility] Stop: 03/03/20 11:59 Last Admin: 03/03/20 10:34 Dose: 250 mls/hr Documented by: Iopamidol (Isovue-370 (76%)) 100 ml IVPUSH ONETIME ONE Stop: 02/29/20 12:35 Last Admin: 02/29/20 12:36 Dose: 68 ml Documented by: Pantoprazole Sodium (Protonix) 40 mg PO NOW STA Stop: 03/02/20 21:49 Last Admin: 03/02/20 22:33 Dose: 40 mg Documented by: Potassium Chloride (Klor-Con M20) 40 meq PO Q4H [facility] Stop: 02/29/20 22:31 Last Admin: 02/29/20 21:41 Dose: 40 meq Documented by: Potassium Chloride (Klor-Con M20) 20 meq PO ONETIME ONE Stop: 03/06/20 15:01 Last Admin: 03/06/20 16:11 Dose: 20 meq Documented by: Sodium Chloride (Saline Flush) 10 ml FLUSH ONETIME ONE Stop: 02/29/20 12:35 Last Admin: 02/29/20 12:36 Dose: 10 ml Documented by: - Exam Quality Assessment: Denies: Supplemental Oxygen General: Reports: Alert, Oriented, Cooperative, No Acute Distress HEENT: Reports: Pupils Equal, Pupils Reactive, Mucous Membr. Moist/[place] Neck: Reports: Supple, Trachea Midline. Denies: Lymphadenopathy Lungs: Reports: Clear to Auscultation, Normal Respiratory Effort Cardiovascular: Reports: Regular Rate, Regular Rhythm, No Murmurs GI/Abdominal Exam: Normal Bowel Sounds, Soft, Non-Tender, No Distention (Female) Exam: Deferred Rectal (Female) Exam: Deferred Back Exam: Reports: Normal Inspection, Full Range of Motion Extremities: Normal Inspection, Normal Range of Motion, Non-Tender, No Pedal Edema, Normal Capillary Refill Skin: Reports: Warm, Dry, Intact Neurological: Reports: No New Focal Deficit Psy/Mental Status: Reports: Alert, Normal Affect, Normal Mood
[2020-03-08] MEDS: Dexamethasone 4 MG Tab PO SCH (13:32)
== END 2020-03-08 15:00 | disposition home or self-care (01) | DRG 137 ==
LOC: SUPCPDRO 10:27 → JD.ED 10:27 → JD.MS 12:39
PROVIDERS: ADMIT Family Medicine; ATTEND Family Medicine
PROC: XW033E5 Introduction of Remdesivir Anti-infective into Peripheral Vein, Percutaneous Approach, New Technology Group 5 (ICD-10-PCS; principal; 2020-02-29)
PROC: 8E0ZXY6 Isolation (ICD-10-PCS; 2020-02-29)
PROC: XW13325 Transfusion of Convalescent Plasma (Nonautologous) into Peripheral Vein, Percutaneous Approach, New Technology Group 5 (ICD-10-PCS; 2020-03-01)
PROC: 5A0935A Assistance with Respiratory Ventilation, Less than 24 Consecutive Hours, High Flow/Velocity Cannula (ICD-10-PCS; 2020-03-02)
DX: U07.1 COVID-19 (principal); J12.89 Other viral pneumonia; E78.00 Pure hypercholesterolemia, unspecified; H54.7 Unspecified visual loss; K29.70 Gastritis, unspecified, without bleeding; K21.9 Gastro-esophageal reflux disease without esophagitis; K44.9 Diaphragmatic hernia without obstruction or gangrene; R09.02 Hypoxemia; E03.9 Hypothyroidism, unspecified; D64.9 Anemia, unspecified; Z79.52 Long term (current) use of systemic steroids; Z79.899 Other long term (current) drug therapy; Z88.1 Allergy status to other antibiotic agents; Z88.2 Allergy status to sulfonamides; Z87.440 Personal history of urinary (tract) infections; Z87.09 Personal history of other diseases of the respiratory system; Z79.890 Hormone replacement therapy; Z90.49 Acquired absence of other specified parts of digestive tract; Z98.51 Tubal ligation status; Z98.890 Other specified postprocedural states; Z99.81 Dependence on supplemental oxygen
CPT/HCPCS: 36415; 36430; 36600; 71045; 71045-26; 71275; 71275-26; 80053; 82728; 82803; 83605; 83615; 83735; 83880; 84100; 84145; 84484; 85007; 85025; 85027; 85379; 85610; 85730; 86140; 86900; 86901; 93005; 93010; 94640; 94660; 94667; 94668; 94761; 94762; 99284; 99285-25; A9270-GY; J0456; J0696; J1100; J1200; J1650; J7050; J8540; P9017; Q9967

== ENCOUNTER 2021-10-28 09:01 | Day surgery (SDC) | payer BC, MEDICAID ==
[~2021-10-28 09:01] MED LIST: Lactated Ringers 1,000 ML IV SCH; Lidocaine 1%/Sod Bicarbonate in NS 8.4% 1 ML Syringe IDERM PRN; Sodium Chloride 0.9% 10 ML Syringe FLUSH PRN; Sodium Chloride 0.9% 10 ML Syringe FLUSH SCH
[2021-10-28] MEDS ORDERED: Ondansetron 4 MG/2 ML SDV ONE (09:34)
[2021-10-28] MEDS ORDERED: Dexamethasone 4 MG/ML 5 ML MDV ONE (09:34)
[2021-10-28] MEDS ORDERED: Lidocaine 2% 100 MG/5 ML Syringe ONE (09:34)
[2021-10-28] MEDS ORDERED: Ketorolac 30 MG/ML SDV ONE (09:34)
[2021-10-28] MEDS ORDERED: Propofol 200 MG/20 ML SDV ONE (09:34)
[2021-10-28] MEDS ORDERED: Rocuronium 50 MG/5 ML Vial ONE (09:34)
[2021-10-28] MEDS ORDERED: Neostigmine Methylsulfate 10 MG/10 ML MDV ONE (09:34)
[2021-10-28] MEDS ORDERED: fentaNYL 100 MCG/2 ML SDV ONE (09:34)
[2021-10-28] MEDS ORDERED: Midazolam 1 MG/ML 2 ML SDV ONE (09:35)
[2021-10-28] MEDS ORDERED: HYDROmorphone 0.5 MG/0.5 ML Syringe ONE ×2 (09:35)
[2021-10-28] MEDS ORDERED: Lidocaine 1% 6 ML ONE (09:36)
[2021-10-28] MEDS ORDERED: Scopolamine 1.5 MG Transdermal Patch TRDERM PRN (10:11)
[2021-10-28] MEDS ORDERED: Sugammadex Sodium 200 MG/2 ML VIAL ONE (10:53)
[2021-10-28] MEDS: Bupivacaine 0.5% 30 ML SDV ONE ×2 (11:24→12:05)
[2021-10-28] MEDS ORDERED: Naloxone 0.4 MG/ML SDV ONE ×2 (12:33)
[2021-10-28] MEDS ORDERED: Acetaminophen/oxyCODONE 325-5 MG Tab PO PRN (14:01)
[2021-10-28] MEDS ORDERED: Albuterol/Ipratropium 3.0-0.5 MG/3 ML Neb Soln NEB PRN (15:41)
== END 2021-10-28 19:13 | disposition home or self-care (01) ==
LOC: JD.SDS 09:01 → JD.MS 16:19 → JD.SDS 19:13
PROVIDERS: ATTEND Obstetrics & Gynecology
DX: D27.0 Benign neoplasm of right ovary (principal); N83.8 Other noninflammatory disorders of ovary, fallopian tube and broad ligament; E78.1 Pure hyperglyceridemia; J45.40 Moderate persistent asthma, uncomplicated; R00.0 Tachycardia, unspecified; K21.00 Gastro-esophageal reflux disease with esophagitis, without bleeding; G25.81 Restless legs syndrome; D50.9 Iron deficiency anemia, unspecified; G47.33 Obstructive sleep apnea (adult) (pediatric); I10 Essential (primary) hypertension; F98.8 Other specified behavioral and emotional disorders with onset usually occurring in childhood and adolescence; E03.9 Hypothyroidism, unspecified; R73.03 Prediabetes; K58.9 Irritable bowel syndrome, unspecified; H54.7 Unspecified visual loss; Z88.2 Allergy status to sulfonamides; Z88.1 Allergy status to other antibiotic agents; Z91.09 Other allergy status, other than to drugs and biological substances; Z79.890 Hormone replacement therapy; Z79.899 Other long term (current) drug therapy; Z79.51 Long term (current) use of inhaled steroids
CPT/HCPCS: 36415; 58661; 86850; 86900; 86901; A9270; J1100; J1170; J1885; J2250; J2310; J2405; J2704; J3010; J3490; J7120; 00840; J2710; J7620-GY

== ENCOUNTER 2021-11-12 23:58 | Emergency (ER) | payer BC | END 2021-11-13 00:37 | disposition home or self-care (01) | LOC: JD.ED 23:58 | DX: L76.82 Other postprocedural complications of skin and subcutaneous tissue (principal); J45.909 Unspecified asthma, uncomplicated; E78.00 Pure hypercholesterolemia, unspecified; I10 Essential (primary) hypertension; E66.9 Obesity, unspecified; Z68.38 Body mass index [BMI] 38.0-38.9, adult; Z88.1 Allergy status to other antibiotic agents; Z88.2 Allergy status to sulfonamides; Z79.899 Other long term (current) drug therapy; Z86.16 Personal history of COVID-19 | CPT/HCPCS: 99283 ==